=== PATIENT | female | born 1965 | race Caucasian/White ===

== ENCOUNTER 2020-03-19 11:51 | Outpatient (CLI) | payer MEDICAID, SELFPAY ==
--- NOTE | 2020-03-19 12:11 | XRR_ITS ---
PROCEDURE INFORMATION: Exam: XR Chest, 2 Views Exam date and time: 03/19/2020 12:36 PM Age: 55 years old Clinical indication: Condition or disease; Other: Carcinoma in situ of oral cavity TECHNIQUE: Imaging protocol: XR of the chest Views: 2 views. COMPARISON: No relevant prior studies available. FINDINGS: Lungs: Granuloma right mid lung field. This finding measures 8.7 mm No consolidation. Pleural space: Unremarkable. No pleural effusion. No pneumothorax. Heart/Mediastinum: Unremarkable. No cardiomegaly. Bones/joints: There is dorsal spine osteopenia seen. XR/XR chest 2V* [id number] IMPRESSION: 1. No acute findings. 2. Granuloma right lung
[2020-03-19 12:30] LABS: Basophils # 0.1 10^3/uL (0.0-0.1); Basophils % 1.2 %; Eosinophils # 0.1 10^3/uL (0.0-0.8); Eosinophils % 1.2 %; Hematocrit 39.8 % (37.0-47.0); Hemoglobin 12.8 g/dL (11.5-15.3); Lymphocytes # 1.3 10^3/uL (0.8-4.8); Lymphocytes % 21.2 %; Mean Corpuscular HGB Conc 32.2 g/dL (30.0-36.0); Mean Corpuscular Hemoglobin 30.8 pg (28.0-34.0); Mean Corpuscular Volume 95.7 fL (81-99); Monocytes # 0.4 10^3/uL (0.2-0.9); Monocytes % 6.9 %; Neutrophils # 4.09 10^3/uL (1.8-7.7); Neutrophils % 69.3 %; Nucleated Red Blood Cells % 0 %; Platelet Count 175 10^3/cmm (130-400); Red Blood Count 4.16 10^6/uL (4.1-5.3); Red Cell Distribution Width 13.4 % (12.1-15.1); White Blood Count 5.9 10^3/uL (4.0-10.0)
[2020-03-19 12:49] LABS: Alanine Aminotransferase 29 U/L (0-33); Albumin Level 4.2 g/dL (3.5-5.2); Alkaline Phosphatase 86 IU/L (35-105); Anion Gap 12.9 (5-19); Aspartate Amino Transferase 20 U/L (0-32); Blood Urea Nitrogen 9 mg/dL (6-20); Calcium 9.9 mg/dL (8.5-10.5); Carbon Dioxide 30 mmol/L (22-29); Chloride 100 mmol/L (98-107); Globulin 2.5 g/dL (1.3-4.6); Glomerular Filtration Rate 86.9 mL/min (90-130); Glucose 99 mg/dL (65-115); Osmolality Calculated 285 mOsm/kg (285-295); Potassium 4.9 mmol/L (3.5-5.1); Sodium 138 mmol/L (136-145); Total Bilirubin 0.2 mg/dL (0.15-1.2); Total Protein 6.7 g/dL (6.6-8.7)
== END 2020-03-19 11:52 | disposition home or self-care (01) ==
PROVIDERS: PCP Physician Assistant; Visit Provider Specialist
DX: D00.00 Carcinoma in situ of oral cavity, unspecified site (principal); J84.10 Pulmonary fibrosis, unspecified
CPT/HCPCS: 36415; 71046; 80053; 85025

== ENCOUNTER 2020-04-02 07:40 | Outpatient (CLI) | payer MEDICAID, SELFPAY ==
--- NOTE | 2020-04-02 08:03 | CT_ITS ---
WS: [id number] CT NECK TECHNIQUE: Contrast-enhanced CT of the neck with coronal and sagittal reformatted images. CLINICAL INFORMATION: CARCINOMA INSITU OF ORAL CAVITIY COMPARISON: None. DLP: 2322.[address] scans at [facility] use at least one of these dose optimization techniques: automat ed exposure control; mA and/or kV adjustment per patient size (includes targeted exams where dose is matched to clinical indication); or iterative reconstruction. FINDINGS: Parotid glands are normal. Normal submandibular glands. Normal tongue base. Normal posterior nasophar ynx. Normal parapharyngeal fat. No evidence of supraglottic or glottic mass. Subglottic airway is pat ent. Thyroid gland appears normal. Lung apices are well aerated. Partially visualized intracranial contents are normal. Paranasal sinuses and mastoid air cells well a erated. A few slightly prominent submental lymph nodes the largest measuring 6 mm not pathologically enlarged . Moderate spondylitic changes cervical spine. Disc osteophyte complex C6-7 with mild central canal s tenosis. CT/CT neck w con* [id number] IMPRESSION: 1. Salivary glands are normal in appearance. 2. No cervical lymphadenopathy. A few prominent submental lymph nodes but not pathologically enlarged. Largest measures 6 mm. 3. No evidence of supraglottic or glottic mass. 4. Posterior nasopharynx and tongue base appear unremarkable. 5. Paranasal sinuses and mastoid air cells are well aerated. 6. Moderate central canal stenosis due to disc osteophyte complex with central calcified protrusion and C6-C7.
[2020-04-02] MEDS: iohexol 300 mg/mL 100 mL Btl IV (08:31)
== END 2020-04-02 07:41 | disposition home or self-care (01) ==
LOC: RADWPI 07:44
PROVIDERS: PCP Physician Assistant; Visit Provider Specialist
DX: D00.00 Carcinoma in situ of oral cavity, unspecified site (principal); M48.02 Spinal stenosis, cervical region; M50.223 Other cervical disc displacement at C6-C7 level
CPT/HCPCS: 70491; Q9967

== ENCOUNTER 2020-04-07 08:55 | Outpatient (CLI) | payer MEDICAID, SELFPAY ==
--- NOTE | 2020-04-07 09:14 | MR_ITS ---
WS: [id number] MRI LEFT hip/pelvis. HISTORY: LEFT hip pain. History of fibromyalgia. No injury. Multiplanar, multisequence imaging is performed of the pelvis with attention to the LEFT hip. COMPARISON: LEFT hip radiograph 02/12/2020. No marrow edema or fracture. Mild narrowing of the hip joints bilaterally but slightly greater on the LEFT. There is slightly greater irregularity involving the cortical surface of the LEFT hip and loss of cartilage as compared to the RIGHT. Increased T2 signal over the greater trochanters bilaterally and mild increased signal in the gluteus medius tendon over the greater trochanter. These changes are bilateral greatest on the LEFT. No asymmetry of the muscles or soft tissues. No free fluid in the ab domen. Linear areas of increased T2 signal involving the superior labrum, noted bilaterally. MR/MR hip LT wo con* [id number] IMPRESSION: 1. Mild bilateral trochanteric bursitis, LEFT greater than RIGHT. 2. Mild bilateral hip joint narrowing, greatest on the LEFT with more prominent degenerative changes and change in the cortex of the LEFT hip as compared to t he RIGHT. No fracture. 3. Suspicious for bilateral labral tears.
== END 2020-04-07 08:56 | disposition home or self-care (01) ==
LOC: RADWPI 08:56
PROVIDERS: PCP Physician Assistant; Visit Provider Physician Assistant
DX: M70.62 Trochanteric bursitis, left hip (principal); M70.61 Trochanteric bursitis, right hip
CPT/HCPCS: 73721

== ENCOUNTER → 2020-04-08 09:26 | Outpatient (BNVA) | payer MEDICAID, SELFPAY | PROVIDERS: PCP Physician Assistant; Referring Provider Physician Assistant; Visit Provider Anesthesiology Pain Medicine | DX: M25.552 Pain in left hip (principal); M54.9 Dorsalgia, unspecified; M62.830 Muscle spasm of back; Z79.891 Long term (current) use of opiate analgesic | CPT/HCPCS: 99205 ==

== ENCOUNTER → 2020-04-15 13:55 | Outpatient (BNVA) | payer MEDICAID, SELFPAY | PROVIDERS: PCP Physician Assistant; Visit Provider Anesthesiology Pain Medicine | DX: G89.29 Other chronic pain (principal); M25.552 Pain in left hip; Z79.891 Long term (current) use of opiate analgesic | CPT/HCPCS: 20610; 77002; J1030; J3490 ==

== ENCOUNTER → 2020-04-16 08:37 | Outpatient (BNVA) | payer MEDICAID, SELFPAY | PROVIDERS: PCP Physician Assistant; Referring Provider Physician Assistant; Visit Provider Orthopaedic Surgery | DX: M25.552 Pain in left hip (principal); M51.36 Other intervertebral disc degeneration, lumbar region; M51.37 Other intervertebral disc degeneration, lumbosacral region | CPT/HCPCS: 72114; 73502 ==

== ENCOUNTER → 2020-05-01 08:49 | Outpatient (BNVA) | payer MEDICAID, SELFPAY | PROVIDERS: PCP Physician Assistant; Visit Provider Anesthesiology Pain Medicine | DX: M25.552 Pain in left hip (principal); M54.9 Dorsalgia, unspecified; M62.830 Muscle spasm of back; Z79.891 Long term (current) use of opiate analgesic | CPT/HCPCS: 99214 ==

== ENCOUNTER 2020-05-06 08:25 | Outpatient (CLI) | payer MEDICAID, SELFPAY ==
--- NOTE | 2020-05-06 08:45 | MR_ITS ---
WS: [id number] MRI LUMBAR SPINE NONCONTRAST TECHNIQUE: Sagittal T1, T2 and STIR imaging. Axial T1 and T2 imaging. CLINICAL INFORMATION: M54.5 - Low back pain COMPARISON: None. FINDINGS: Mild lumbar curve. No acute compression. No high-grade central canal stenosis. L1-L2: Normal. L2-L3: Mild annular bulging. Small right foraminal protrusion with mild right foraminal narrowing. Co ntact of the exiting right L2 nerve root. Mild facet arthropathy. L3-L4: Mild annular bulging. Narrowing of the left subarticular recess. Small left foraminal protrusi on with mild left foraminal narrowing. Mild facet arthropathy. L4-L5: Mild annular bulging. Tiny annular tear. Mild facet arthropathy. Spinal canal and foramen are patent. L5-S1: No significant disc bulging. Spinal canal foramen are patent. Mild facet arthropathy. Visualized pelvic bony structures: Normal. Paravertebral soft tissues: Normal. MR/MR lumbar spine wo con* [id number] IMPRESSION: 1. Mild lumbar curve. No acute compression. No high-grade central canal stenos is. 2. Small left foraminal protrusion L3-4 with contact of the exiting left L3 ne rve root. Recommend correlation for left L3 nerve root symptoms. 3. Small right foraminal protrusion L2-3 slightly impinges the exiting right L 2 nerve root with mild right foraminal narrowing. 4. Tiny annular fissure L4-5. 5. Mild facet arthropathy worse L5-S1.
== END 2020-05-06 08:26 | disposition home or self-care (01) ==
LOC: RADSHAW 08:25
PROVIDERS: PCP Physician Assistant; Visit Provider Orthopaedic Surgery
DX: M47.817 Spondylosis without myelopathy or radiculopathy, lumbosacral region (principal); M51.26 Other intervertebral disc displacement, lumbar region
CPT/HCPCS: 72148

== ENCOUNTER → 2020-05-20 08:54 | Outpatient (BNVA) | payer MEDICAID, SELFPAY | PROVIDERS: PCP Physician Assistant; Visit Provider Anesthesiology Pain Medicine | DX: M54.9 Dorsalgia, unspecified (principal); M62.830 Muscle spasm of back; M51.36 Other intervertebral disc degeneration, lumbar region; M47.816 Spondylosis without myelopathy or radiculopathy, lumbar region; M54.16 Radiculopathy, lumbar region; M25.552 Pain in left hip; Z79.891 Long term (current) use of opiate analgesic | CPT/HCPCS: 99214 ==

== ENCOUNTER → 2020-06-24 10:53 | Outpatient (BNVA) | payer MEDICAID, SELFPAY | PROVIDERS: PCP Physician Assistant; Referring Provider Orthopaedic Surgery; Visit Provider Orthopaedic Surgery | DX: M54.16 Radiculopathy, lumbar region (principal); M51.36 Other intervertebral disc degeneration, lumbar region | CPT/HCPCS: 72110 ==

== ENCOUNTER → 2020-06-26 10:04 | Outpatient (BNVA) | payer MEDICAID, SELFPAY | PROVIDERS: PCP Physician Assistant; Visit Provider Anesthesiology Pain Medicine | DX: M54.9 Dorsalgia, unspecified (principal); M25.552 Pain in left hip; M51.36 Other intervertebral disc degeneration, lumbar region; M47.816 Spondylosis without myelopathy or radiculopathy, lumbar region; M54.16 Radiculopathy, lumbar region; M62.830 Muscle spasm of back | CPT/HCPCS: 99214 ==

== ENCOUNTER → 2020-07-01 14:20 | Outpatient (BNVA) | payer MEDICAID, SELFPAY | PROVIDERS: PCP Physician Assistant; Visit Provider Anesthesiology Pain Medicine | DX: M54.16 Radiculopathy, lumbar region (principal); M54.9 Dorsalgia, unspecified | CPT/HCPCS: 64483; 64484; J1100; J3490 ==

== ENCOUNTER → 2020-07-17 09:17 | Outpatient (BNVA) | payer MEDICAID, SELFPAY | PROVIDERS: PCP Physician Assistant; Visit Provider Anesthesiology Pain Medicine | DX: M54.9 Dorsalgia, unspecified (principal); M25.552 Pain in left hip; M62.830 Muscle spasm of back; M51.36 Other intervertebral disc degeneration, lumbar region; M47.816 Spondylosis without myelopathy or radiculopathy, lumbar region; M54.16 Radiculopathy, lumbar region | CPT/HCPCS: 99214 ==

== ENCOUNTER → 2020-08-28 09:07 | Outpatient (BNVA) | payer MEDICAID, SELFPAY | PROVIDERS: PCP Physician Assistant; Visit Provider Anesthesiology Pain Medicine | DX: M51.17 Intervertebral disc disorders with radiculopathy, lumbosacral region (principal); M51.36 Other intervertebral disc degeneration, lumbar region; M47.816 Spondylosis without myelopathy or radiculopathy, lumbar region; M54.9 Dorsalgia, unspecified; M25.552 Pain in left hip; M62.830 Muscle spasm of back | CPT/HCPCS: 99214 ==

== ENCOUNTER → 2020-09-03 14:09 | Outpatient (BNVA) | payer MEDICAID, SELFPAY | PROVIDERS: PCP Physician Assistant; Visit Provider Anesthesiology Pain Medicine | DX: M54.16 Radiculopathy, lumbar region (principal); M54.9 Dorsalgia, unspecified | CPT/HCPCS: 64483; 64484; J1100; J3490 ==

== ENCOUNTER → 2020-10-09 09:39 | Outpatient (BNVA) | payer MEDICAID, SELFPAY | PROVIDERS: PCP Physician Assistant; Visit Provider Anesthesiology Pain Medicine | DX: G89.29 Other chronic pain (principal); M79.18 Myalgia, other site; M54.16 Radiculopathy, lumbar region; M51.36 Other intervertebral disc degeneration, lumbar region; M47.816 Spondylosis without myelopathy or radiculopathy, lumbar region; M54.9 Dorsalgia, unspecified; M25.552 Pain in left hip; M79.605 Pain in left leg | CPT/HCPCS: 20553; 99214; J1030; J3490 ==

== ENCOUNTER 2020-10-24 06:48 | Outpatient (CLI) | payer MEDICAID, SELFPAY ==
--- NOTE | 2020-10-24 07:15 | MR_ITS ---
WS: [id number] MRI LUMBAR SPINE NONCONTRAST TECHNIQUE: Sagittal T1, T2 and STIR imaging. Axial T1 and T2 imaging. CLINICAL INFORMATION: M54.16 - Radiculopathy, lumbar region COMPARISON: None. FINDINGS: Mild lumbar curve. No acute compression. No high-grade central canal stenosis. L1-L2: Normal. L2-L3: Mild annular bulging with slight effacement of the ventral thecal sac. Tiny right foraminal pr otrusion with a small annular fissure and mild right foraminal narrowing. Contact of the exiting righ t L2 nerve root. L3-L4: Mild annular bulging. Slight effacement of ventral thecal sac. Tiny bilateral foraminal protru sions left greater than right contacts the exiting L3 nerve roots. Mild foraminal narrowing. Mild fac et arthropathy. L4-L5: Mild annular bulging with a shallow right pericentral protrusion. Impingement traversing right L5 nerve root in the subarticular recess. Mild right L4-5 foraminal narrowing. Left foramen is paten t. Mild/moderate facet arthropathy. L5-S1: No significant disc bulging. Spinal canal and foramen are patent. Mild facet arthropathy. Visualized pelvic bony structures: Normal. Paravertebral soft tissues: Normal. MR/MR lumbar spine wo con* [id number] IMPRESSION: 1. Mild lumbar curve. No acute compression. No high-grade central canal stenos is. 2. Shallow right pericentral protrusion L4-5 impinges the traversing right L5 nerve root in the subarticular recess. This is progressed since May 06 21. Correlation for right L5 nerve root symptoms. Mild right L4-5 foraminal naomi rowing. 3. MRI is otherwise unchanged from May 06, 2020 4. Right foraminal protrusion L2-3 with a small annular tear impinges the exit ing right L2 nerve root. Recommend correlation right L2 nerve root symptoms. 5. Tiny bilateral foraminal protrusions L3-4 slightly contacts the exiting lef t greater than right L3 nerve roots with a small left annular fissure.
== END 2020-10-24 06:49 | disposition home or self-care (01) ==
LOC: RADSHAW 06:51
PROVIDERS: PCP Physician Assistant; Visit Provider Anesthesiology Pain Medicine
DX: M54.16 Radiculopathy, lumbar region (principal); M51.26 Other intervertebral disc displacement, lumbar region
CPT/HCPCS: 72148

== ENCOUNTER 2020-10-27 14:54 | Outpatient (CLI) | payer MEDICAID, SELFPAY ==
--- NOTE | 2020-10-27 15:02 | CT_ITS ---
WS: [id number] CT scan of the neck without IV contrast. Additional two-dimensional coronal and sagittal reconstructi on was performed. 10/27/2020 Clinical Data: ACUTE NECK PAIN Comparison: CT neck, 04/02/2020. DLP: 1103.[address] scans at [facility] use at least one of these dose optimization techniques: automat ed exposure control; mA and/or kV adjustment per patient size (includes targeted exams where dose is matched to clinical indication); or iterative reconstruction. Findings: No lymphadenopathy is noted. The salivary glands are unremarkable. There is no prevertebral soft tiss ue swelling. The larynx is symmetric. The floor of the mouth and parapharyngeal spaces are normal. T he oral cavity is unremarkable. The tongue base is normal. The hypopharynx is unremarkable. The cervical spine shows minimal osteoarthritic change from C4 through C7. The lung apices show no ab normalities. The skull base shows no erosions. The paranasal sinuses and intraorbital contents are no nremarkable. CT/CT neck con [id number] Impression: Negative CT scan of the neck.
--- NOTE | 2020-10-27 15:02 | CT_ITS ---
WS: [id number] CT scan of the head, 10/27/2020 Clinical Data: TEMPORAL HEADACHE Comparison: None. DLP: 925.[address] scans at [facility] use at least one of these dose optimization techniques: automat ed exposure control; mA and/or kV adjustment per patient size (includes targeted exams where dose is matched to clinical indication); or iterative reconstruction. Findings: The ventricular system is normal without shift. No recent infarct or hemorrhage is seen. There are no abnormal intracerebral masses. The cerebellum and brainstem are not remarkable. Bony windows of the skull and skull base show no fractures or erosions. The mastoid air cells, risk intern al auditory canals, sella turcica, intraorbital contents, and paranasal sinuses are unremarkable. CT/CT head wo con* [id number] Impression: Negative CT scan of the head
== END 2020-10-27 14:55 | disposition home or self-care (01) ==
PROVIDERS: PCP Physician Assistant; Visit Provider Family Medicine
DX: R51.9 Headache, unspecified (principal); M54.2 Cervicalgia
CPT/HCPCS: 70450; 70490

== ENCOUNTER 2020-11-10 08:43 | Outpatient (CLI) | payer MEDICAID, SELFPAY ==
--- NOTE | 2020-11-10 08:56 | MR_ITS ---
WS: [id number] MRI HEAD WITH CONTRAST WITH ATTENTION TO THE INTERNAL AUDITORY CANALS TECHNIQUE: Sagittal T1, T2 axial, T2 axial flair, axial susceptibility weighted imaging, axial diffus ion weighted images, and coronal T2 images were obtained. Pre and post T1 axial and post T1 coronal i mages. ADC and FSPGR images. Post gadolinium images with attention to the internal auditory canals. A xial fiesta imaging. CLINICAL INFORMATION: CHRONIC SEROUS OTITIS MEDIA, RIGHT EAR COMPARISON: CT October 27, 2020 FINDINGS: No evidence of restricted diffusion to suggest acute ischemia. Ventricular system and basal cisterns are patent. No suspicious intracranial signal abnormalities. Normal nguyen-white differentiation. Opaci fication right mastoid air cells. Right middle ear is well aerated. No hemosiderin on the susceptibly weighted images. Proximal 7th and 8th cranial nerves appear normal. Normal trigeminal nerve root ent ry zones. No evidence of enhancing IAC or CP angle mass. Normal optic chiasm and pituitary infundibulum. Normal cavernous sinuses and Meckel's cave. No abnorm al intracranial enhancement. Normal dural venous sinuses. Incidental venous angioma right frontal lob e. MR/MR iac's wo/w con* [id number] IMPRESSION: 1. No evidence of restricted diffusion to suggest acute ischemia. 2. No suspicious intracranial signal abnormalities. 3. Opacification of the right mastoid air cells. Right middle ear appears well aerated. No evidence of enhancing IAC or CP angle mass. 4. Normal trigeminal nerve root entry zones. 5. Left mastoid air cells are well aerated. 6. Incidental venous angioma right frontal lobe.
[2020-11-10] MEDS: gadobenate dimeglumine 20 mL vial IV (09:42)
== END 2020-11-10 08:44 | disposition home or self-care (01) ==
PROVIDERS: PCP Physician Assistant; Visit Provider Specialist
DX: H65.21 Chronic serous otitis media, right ear (principal); M54.2 Cervicalgia; Q28.3 Other malformations of cerebral vessels
CPT/HCPCS: 70553; A9577

== ENCOUNTER → 2020-11-18 08:16 | Outpatient (BNVA) | payer MEDICAID, SELFPAY | PROVIDERS: PCP Physician Assistant; Visit Provider Anesthesiology Pain Medicine | DX: M51.17 Intervertebral disc disorders with radiculopathy, lumbosacral region (principal); M51.36 Other intervertebral disc degeneration, lumbar region; M47.816 Spondylosis without myelopathy or radiculopathy, lumbar region; M54.2 Cervicalgia; M25.552 Pain in left hip; M79.605 Pain in left leg; M62.830 Muscle spasm of back; Z87.19 Personal history of other diseases of the digestive system; Z98.890 Other specified postprocedural states | CPT/HCPCS: 99215 ==

== ENCOUNTER → 2020-11-25 14:03 | Outpatient (BNVA) | payer MEDICAID, SELFPAY | PROVIDERS: PCP Physician Assistant; Visit Provider Anesthesiology Pain Medicine | DX: M54.16 Radiculopathy, lumbar region (principal) | CPT/HCPCS: 64483; 64484; J1100; J3490 ==

== ENCOUNTER 2020-12-15 13:26 | Emergency (ER) | payer MEDICAID, SELFPAY ==
[2020-12-15 13:33] VITALS: BP 121/79; PULSE 92; RESP 18; TEMP 37; O2SAT 99; BMI 27.4
--- NOTE | 2020-12-15 13:33 | XRR_ITS ---
PROCEDURE INFORMATION: Exam: XR Chest Exam date and time: 12/15/2020 1:33 PM Age: 55 years old Clinical indication: Other: Dizziness; Patient HX: This patient is a 55-year-old female brought in by EMS for dizzy and near syncope episode. ; Additional info: Cough TECHNIQUE: Imaging protocol: XR of the chest. Views: 1 view. COMPARISON: CR XR chest 2V* [id number] 03/19/2020 12:34 PM FINDINGS: Lungs: No consolidation. Benign calcified right upper lobe granuloma. Pleural spaces: Unremarkable. No pleural effusion. No pneumothorax. Heart/Mediastinum: Unremarkable. No cardiomegaly. Bones/joints: No acute findings. XR/XR chest 1V portable [id number] IMPRESSION: No acute findings.
--- NOTE | 2020-12-15 13:34 | W.ED.GENADLT ---
HPI - General Adult General: Chief complaint: Back Pain/Injury Stated complaint: LEG PAIN, NUMB, BACK PAIN, NEAR SYNCOPE Time Seen by Provider: 12/15/20 13:30 History of Present Illness: HPI narrative: This patient is a 55-year-old female brought in by EMS for dizzy and near syncope episode. Patient has chronic back pain and neuropathy to the lower extremities and is required to take gabapentin that she has been on for some time. Patient states though she is out of her chronic primary medications due to the loss of her Medicaid. Patient states that she was walking from the one room to another and got lightheaded and if her friend had not caught her she probably would have passed out but the patient did not have any syncopal episodes. Patient's complaints neuropathy pain and low back pain is chronic and has had this for some time. Patient is alert and oriented x3. Will do medical evaluation treat as needed Onset (ago): hour(s) Associated symptoms: Deny chest pain, dyspnea, headache(s), nausea, rash, palpitations or vomiting Review of Systems General: Reports: 10 or more systems reviewed and unremarkable except in HPI and below Const: Denies: fever(s), chills, body aches or fatigue Eyes: Denies: change in vision or blurry vision ENMT: Denies: throat pain, hoarseness or mouth pain Card: Denies: chest pain, palpitations, irregular heart rhythm, edema, swelling of feet/ankles or lightheadedness Resp: Denies: dyspnea, productive cough, non-productive cough, wheezing or pain on inspiration GI: Denies: abdominal pain, nausea or vomiting : Denies: flank pain, difficulty voiding, dysuria, urinary frequency, urinary urgency or urinary hesitancy Musc: Reports: back pain; Denies: neck pain, extremity pain, extremity swelling, joint pain, joint swelling, joint redness, joint warmth or limited range of motion Skin/Breast: Denies: rash, pruritus, erythema or skin tenderness Neuro: Reports: dizziness; Denies: headache(s), numbness in extremities or weakness in extremities Psych: Denies: anxiety or depression PFS ED PFSH: Medical History Fibromyalgia Family History Mother Cancer cervial COPD (chronic obstructive pulmonary disease) Father COPD (chronic obstructive pulmonary disease) Hypertension Diabetes Brother Diabetes one brother is insulin dependent and another brother that is not insulin dependent Sister Factor 5 Leiden mutation, heterozygous Sister Diabetes Non insulin dependent Social History Smoking and tobacco status: former smoker Second hand smoke exposure: Yes Alcohol intake: former History of recent travel: No Physical Exam Const: COMMON NORMALS: no acute distress, average body habitus, patient oriented x3, no limitations, healthy appearing, alert and well nourished HENMT: COMMON NORMALS: normocephalic, atraumatic, hearing grossly normal bilaterally, external ears normal, EAC's normal, TM's normal bilaterally, Normal external nose present, Normal nasal mucous membranes and turbinates present, moist oral mucous membranes, oropharynx normal, dentition normal and gingiva normal HEAD & SCALP: normocephalic and atraumatic NOSE: Normal external nose present and Normal nasal mucous membranes and turbinates present EXTERNAL EAR: Yes external ears normal EXTERNAL AUDITORY CANAL: EAC's normal TYMPANIC MEMBRANE: TM's normal bilaterally Neck/C-Spine: COMMON NORMALS: full ROM, no lymphadenopathy, supple, no meningeal signs, no JVD, Thyroid normal and No carotid bruits THYROID: Thyroid normal Chest: COMMONS NORMALS: normal inspection of the chest, normal palpation of entire chest wall, normal inspection of the breasts and normal palpation of the breasts Breast/axilla inspection: Yes normal inspection of the breasts BREAST/AXILLA PALPATION: Yes normal palpation of the breasts Resp: COMMON NORMALS: normal respiratory effort, No retractions, No use of accessory muscles, clear to auscultation bilaterally and percussion normal AUSCULTATION: clear to auscultation bilaterally PERCUSSION: percussion normal Cardio: COMMON NORMALS: no JVD, regular rate, regular rhythm, S1 normal heart sound present, S2 normal heart sound present, No gallops present (Cardio), No clicks present (Cardio), No murmurs present (Cardio), No rub (Cardio) and Peripheral pulses 2+ throughout RATE: regular rate RHYTHM: regular rhythm HEART SOUNDS: S1 normal heart sound present and S2 normal heart sound present PERIPHERAL PULSES: Peripheral pulses 2+ throughout GI: COMMON NORMALS: Normal to inspection, nondistended, normoactive bowel sounds present, Soft to palpation, non-tender, No hepatosplenomegaly present, no masses and no bruits PALPATION: Yes Soft to palpation and Yes No hepatosplenomegaly present Back/Pelvis: COMMON NORMALS: thoracic and lumbar spine normal to inspection, no thoracic nor lumbar tenderness, thoraco-lumbar ROM normal and straight leg raise negative bilaterally Extremity: COMMON NORMALS: normal to inspection, full ROM, capillary refill normal, no joint enlargement, no clubbing, cyanosis or edema, no calf tenderness and no pedal edema Neuro: COMMON NORMALS: patient oriented x3 SENSORIUM/ORIENTATION: Yes alert MENINGEAL SIGNS: Yes no meningeal signs Course Reevaluation(s): Reevaluation #1: Negative evaluation in the emergency department for any acute findings. Patient will be discharged home. Patient will receive refills on her gabapentin. Patient is to follow-up with primary care physician in 2 to 3 days as needed. Time: 15:56 Vital Signs: Vital signs: Vital Signs Temperature 98.6 F 12/15/20 13:33 Pulse Rate 95 12/15/20 15:25 Respiratory Rate 18 12/15/20 13:33 Blood Pressure 104/72 12/15/20 15:25 Pulse Oximetry 99 12/15/20 15:25 MDM - General Adult MDM Narrative: Medical decision making narrative: Negative evaluation in the emergency department for any acute findings. Patient will be discharged home. Patient will receive refills on her gabapentin. Patient is to follow-up with primary care physician in 2 to 3 days as needed. Lab Data: Labs: Lab Results 12/15/20 12/15/20 12/15/20 13:45 13:45 13:45 WBC 9.3 10^3/uL 10^3/ uL (4.0-10.0) RBC 4.21 10^6/uL 10^6 /uL (4.1-5.3) Hgb 13.4 g/dL g/dL (11.5-15.3) Hct 39.2 % % (37.0-47.0) MCV 93.1 fl fl (81-99) MCH 31.8 pg pg (28.0-34.0) MCHC 34.2 g/dL g/dL (30.0-36.0) RDW 13.5 % % (12.1-15.1) Plt Count 198 10^3/cmm 10^3 /cmm (130-400) MPV 10.2 fL fL (7.4-10.4) Neut % (Auto) 76.7 % % Lymph % (Auto) 12.3 % % Mellette % (Auto) 9.5 % % Eos % (Auto) 0.6 % % Baso % (Auto) 0.6 % % Neut # (Auto) 7.15 10^3/uL 10^3 /uL (1.8-7.7) Lymph # (Auto) 1.2 10^3/uL 10^3/ uL (0.8-4.8) Mellette # (Auto) 0.9 10^3/uL 10^3/ uL (0.2-0.9) Eos # (Auto) 0.1 10^3/uL 10^3/ uL (0.0-0.8) Baso # (Auto) 0.1 10^3/uL 10^3/ uL (0.0-0.1) Nucleated RBC % (a uto) 0 % % Nucleated RBCs # 0.0 /100WBC /100W BC Sodium 139 mmol/L mmol/L (136-145) Potassium 3.3 mmol/L L mmol /L (3.5-5.1) Chloride 104 mmol/L mmol/L (98-107) Carbon Dioxide 26 mmol/L mmol/L (22-29) Anion Gap 12.3 (5-19) BUN 6 mg/dL mg/dL (6-20) Creatinine 0.5 mg/dL mg/dL (0.5-0.9) GFR Calculation 128.1 mL/min mL/m in (90-130) Glucose 83 mg/dL mg/dL (65-115) Calculated Osmolal ity 285 mOsm/kg mOsm/ kg (285-295) Calcium 9.2 mg/dL mg/dL (8.5-10.5) Total Bilirubin 0.2 mg/dL mg/dL (0.15-1.2) AST 16 U/L U/L (0-32) ALT 22 U/L U/L (0-33) Alkaline Phosphata se 118 IU/L H IU/L (35-105) Troponin T Gen 5 n g/L 37 ng/L H ng/L (0-10) Total Protein 6.0 g/dL L g/dL (6.6-8.7) Albumin 3.9 g/dL g/dL (3.5-5.2) Globulin 2.1 g/dL g/dL (1.3-4.6) Urine Color Urine Appearance Urine pH Ur Specific Gravit y Urine Protein Urine Glucose (UA) Urine Ketones Urine Blood Urine Nitrate Urine Bilirubin Urine Urobilinogen Ur Leukocyte Dottie ase 12/15/20 15:27 WBC RBC Hgb Hct MCV MCH MCHC RDW Plt Count MPV Neut % (Auto) Lymph % (Auto) Mellette % (Auto) Eos % (Auto) Baso % (Auto) Neut # (Auto) Lymph # (Auto) Mellette # (Auto) Eos # (Auto) Baso # (Auto) Nucleated RBC % (a uto) Nucleated RBCs # Sodium Potassium Chloride Carbon Dioxide Anion Gap BUN Creatinine GFR Calculation Glucose Calculated Osmolal ity Calcium Total Bilirubin AST ALT Alkaline Phosphata se Troponin T Gen 5 n g/L Total Protein Albumin Globulin Urine Color Straw (Yellow) Urine Appearance Clear (CLEAR) Urine pH 7 (5-7) Ur Specific Gravit y 1.000 L (1.005-1.030) Urine Protein Neg (Negative) Urine Glucose (UA) Norm (Normal) Urine Ketones Negative (Negative) Urine Blood Neg (Negative) Urine Nitrate Negative (Negative) Urine Bilirubin Neg (Negative) Urine Urobilinogen Norm mg/dL mg/dL (Negative) Ur Leukocyte Dottie ase Negative (Negative) EKG Data^: EKG 1: Attestation: I personally reviewed and interpreted this EKG as follows: EKG interpretation date: 12/15/20 EKG interpretation time: 14:03 Prior EKG tracings: not available for review Interpretation: Sinus rhythm with a heart rate of 79 nonspecific EKG changes. Computer generated interpretation: Chest X-Ray 12/15/20 13:33 IMPRESSION: No acute findings. Discharge Plan Discharge Patient Disposition: Home Clinical Impression: Dizziness, Lumbar radiculopathy Condition: Stable Prescriptions: New diclofenac sodium 75 mg tablet,delayed release (DR/EC) 75 mg PO BID PRN (Reason: pain) Qty: 20 RF: 0 No Action atorvastatin [Lipitor] 40 mg tablet 40 mg PO DAILY RF: 0 hydrochlorothiazide 12.5 mg tablet 12.5 mg PO QAM RF: 0 pantoprazole 40 mg tablet,delayed release (DR/EC) 40 mg PO QAM RF: 0 bupropion HCl [Wellbutrin SR] 150 mg tablet sustained-release 12 hr 150 mg PO BID RF: 0 gabapentin 600 mg tablet 600 mg PO TID Qty: 90 RF: 0 tizanidine 4 mg tablet 4 mg PO BID PRN (Reason: muscle spasticity) Qty: 60 RF: 0 pilocarpine HCl 5 mg Tablet 5 mg PO TID RF: 0 Tylenol Extra Strength 500 mg Tablet 1,000 mg PO Q4H PRN (Reason: Pain) RF: 0 ropinirole 2 mg Tablet 2 mg PO BEDTIME RF: 0 trazodone 150 mg Tablet 150 mg PO BEDTIME RF: 0 ProAir HFA 90 mcg/actuation Hfa Aerosol Inhaler 2 puff INHALATION Q4H PRN (Reason: Shortness Of Breath) RF: 0 Flonase 50 mcg/actuation [place],Suspension 2 spray INTRANASAL DAILY RF: 0 Cymbalta 60 mg Capsule,Delayed Release(Dr/Ec) 60 mg PO DAILY RF: 0 Discharge Orders: Discharge ED (Routine); Ordered 12/15/20 Ordered By: Godwin Morales Referrals: Deloris Davey PA [Primary Care Provider] - Discharge Diet: Advance as tolerated Discharge Activity: Resume usual activity Patient Instructions: Opioid Safety Activity Restrictions/Additional Instructions: Encourage p.o. fluids. Continue all home medications. Follow-up with primary care physician for any refills of her chronic medications. You have been given a prescription for diclofenac for pain. Follow-up with your primary care physician in 2 to 3 days. Coding Level of Care Code ED Commissioner Conservation Of Resources for Wilbert Fwd Exam Comprehensive
[2020-12-15] MEDS: sodium chloride 0.9% 1,000 ML 999 ML IV (13:49)
[2020-12-15 13:54] LABS: Basophils # 0.1 10^3/uL (0.0-0.1); Basophils % 0.6 %; Eosinophils # 0.1 10^3/uL (0.0-0.8); Eosinophils % 0.6 %; Hematocrit 39.2 % (37.0-47.0); Hemoglobin 13.4 g/dL (11.5-15.3); Lymphocytes # 1.2 10^3/uL (0.8-4.8); Lymphocytes % 12.3 %; Mean Corpuscular HGB Conc 34.2 g/dL (30.0-36.0); Mean Corpuscular Hemoglobin 31.8 pg (28.0-34.0); Mean Corpuscular Volume 93.1 fl (81-99); Mean Platelet Volume 10.2 fL (7.4-10.4); Monocytes # 0.9 10^3/uL (0.2-0.9); Monocytes % 9.5 %; Neutrophils # 7.15 10^3/uL (1.8-7.7); Neutrophils % 76.7 %; Nucleated Red Blood Cells % 0 %; Platelet Count 198 10^3/cmm (130-400); Red Blood Count 4.21 10^6/uL (4.1-5.3); Red Cell Distribution Width 13.5 % (12.1-15.1); White Blood Count 9.3 10^3/uL (4.0-10.0)
[2020-12-15 14:17] LABS: Alanine Aminotransferase 22 U/L (0-33); Albumin Level 3.9 g/dL (3.5-5.2); Alkaline Phosphatase 118 IU/L (35-105); Anion Gap 12.3 (5-19); Aspartate Amino Transferase 16 U/L (0-32); Blood Urea Nitrogen 6 mg/dL (6-20); Calcium 9.2 mg/dL (8.5-10.5); Carbon Dioxide 26 mmol/L (22-29); Chloride 104 mmol/L (98-107); Creatinine Clr Calc Pharmacy 114.9489; Globulin 2.1 g/dL (1.3-4.6); Glomerular Filtration Rate 128.1 mL/min (90-130); Glucose 83 mg/dL (65-115); Osmolality Calculated 285 mOsm/kg (285-295); Potassium 3.3 mmol/L (3.5-5.1); Sodium 139 mmol/L (136-145); Total Bilirubin 0.2 mg/dL (0.15-1.2)
[2020-12-15 14:20] LABS: Troponin T (5th) Once 37 ng/L (0-10)
--- NOTE | 2020-12-15 14:54 | PC.PHAR ---
PT STATES SHE TAKES CARE OF HER OWN MEDICATIONS-PT BROUGHT IN MEDICATION BOTTLES-PT STATES SHE HAS BEEN OUT OF HER WELLBUTRIN SR 150MG,LIPITOR 40MG,CYMBALTA 60MG,TRAZODONE 150MG SINCE 12/07/20-NOTES ARE MADE IN THE PHARMACY COMMENTS
[2020-12-15 15:21] VITALS: BP 104/72; BP 107/70; BP 115/71; PULSE 81; PULSE 91; PULSE 98
[2020-12-15 15:25] VITALS: BP 104/72; PULSE 95; O2SAT 99
[2020-12-15 15:37] LABS: Add Urine Microscopic? NO; Charge for UA Resulting for Rev
[2020-12-15 15:51] LABS: Bilirubin Urine Neg (Negative); Blood Urine Neg (Negative); Glucose Urine UA Norm (Normal); Ketones Urine Negative (Negative); Leukocyte Esterase Urine Negative (Negative); Nitrate Urine Negative (Negative); Protein Urine Neg (Negative); Urine Appearance Clear (CLEAR); Urine Color Straw (Yellow); Urobilinogen Urine Norm (Negative); pH Urine 7 (5-7)
[2020-12-15 16:00] LABS: Amphetamines Screen Urine Negative (Negative); Barbiturates Screen Urine Negative (Negative); Benzodiazepines Screen Urine Negative (Negative); Cocaine Screen Urine Negative (Negative); Opiate Screen Urine Negative (Negative); PCP Screen Urine Negative (Negative); THC Screen Urine Negative (Negative)
[2020-12-15 16:25] VITALS: BP 120/66; PULSE 79; O2SAT 97
== END 2020-12-15 16:26 | disposition home or self-care (01) ==
PROVIDERS: Emergency Provider Emergency Medicine; PCP Physician Assistant
DX: R42 Dizziness and giddiness (principal); M54.16 Radiculopathy, lumbar region; Z87.891 Personal history of nicotine dependence
CPT/HCPCS: 71045; 80053; 80306; 81003; 84484; 85025; 96360; 99283; J7030

== ENCOUNTER → 2021-01-12 09:35 | Outpatient (BNVA) | payer MEDICAID, SELFPAY | PROVIDERS: PCP Physician Assistant; Visit Provider Anesthesiology Pain Medicine | DX: M51.17 Intervertebral disc disorders with radiculopathy, lumbosacral region (principal); M48.062 Spinal stenosis, lumbar region with neurogenic claudication; M51.36 Other intervertebral disc degeneration, lumbar region; M47.816 Spondylosis without myelopathy or radiculopathy, lumbar region; M25.552 Pain in left hip; M79.605 Pain in left leg; M62.830 Muscle spasm of back; Z87.19 Personal history of other diseases of the digestive system; Z98.890 Other specified postprocedural states | CPT/HCPCS: 99214 ==

== ENCOUNTER → 2021-01-27 14:33 | Outpatient (BNVA) | payer MEDICAID, SELFPAY | PROVIDERS: PCP Physician Assistant; Visit Provider Anesthesiology Pain Medicine | DX: M47.816 Spondylosis without myelopathy or radiculopathy, lumbar region (principal); M54.16 Radiculopathy, lumbar region | CPT/HCPCS: 64493; 64494; 64495; J3490 ==

== ENCOUNTER → 2021-02-10 08:59 | Outpatient (BNVA) | payer MEDICAID, SELFPAY | PROVIDERS: PCP Physician Assistant; Visit Provider Anesthesiology Pain Medicine | DX: M25.551 Pain in right hip (principal); M51.36 Other intervertebral disc degeneration, lumbar region; M47.816 Spondylosis without myelopathy or radiculopathy, lumbar region; M54.16 Radiculopathy, lumbar region; M79.605 Pain in left leg; M62.830 Muscle spasm of back; Z98.890 Other specified postprocedural states; Z87.19 Personal history of other diseases of the digestive system | CPT/HCPCS: 99214 ==

== ENCOUNTER → 2021-02-26 11:13 | Outpatient (BNVA) | payer MEDICAID, SELFPAY | PROVIDERS: PCP Physician Assistant; Visit Provider Orthopaedic Surgery | DX: M54.16 Radiculopathy, lumbar region (principal); M47.816 Spondylosis without myelopathy or radiculopathy, lumbar region; M54.2 Cervicalgia | CPT/HCPCS: 72050; 72110 ==

== ENCOUNTER → 2021-03-02 12:35 | Outpatient (BNVA) | payer MEDICAID, SELFPAY | PROVIDERS: PCP Physician Assistant; Visit Provider Anesthesiology Pain Medicine | DX: M47.816 Spondylosis without myelopathy or radiculopathy, lumbar region (principal) | CPT/HCPCS: 64635; 64636; J1030 ==

== ENCOUNTER → 2021-03-16 09:11 | Outpatient (BNVA) | payer MEDICAID, SELFPAY | PROVIDERS: PCP Physician Assistant; Visit Provider Anesthesiology Pain Medicine | DX: Z98.890 Other specified postprocedural states (principal); Z87.19 Personal history of other diseases of the digestive system; M51.36 Other intervertebral disc degeneration, lumbar region; M47.816 Spondylosis without myelopathy or radiculopathy, lumbar region; M54.16 Radiculopathy, lumbar region; M25.552 Pain in left hip; M79.605 Pain in left leg; M62.830 Muscle spasm of back; Z87.891 Personal history of nicotine dependence | CPT/HCPCS: 99214 ==

== ENCOUNTER 2021-03-18 08:35 | Outpatient (CLI) | payer MEDICAID, SELFPAY ==
--- NOTE | 2021-03-18 08:41 | MM_ITS ---
WS: [id number] BILATERAL DIGITAL SCREENING MAMMOGRAPHY WITH CAD CLINICAL INFORMATION: SCREENING HISTORY: Screening mammogram. No current complaints. COMPARISON: and TECHNIQUE: Bilateral CC and MLO views. FINDINGS: Scattered fibroglandular densities bilaterally. No suspicious focal mass, asymmetry, calcifications, or architectural distortion. No evidence of malignancy. Punctate and lucent centered calcifications. MM/[place] [id number] IMPRESSION: BI-RADS: 2-Benign FOLLOW UP: 1 Year Follow-up Recommend return to annual screening mammography.
== END 2021-03-18 08:36 | disposition home or self-care (01) ==
LOC: RADSHAW 08:39
PROVIDERS: PCP Physician Assistant; Visit Provider Physician Assistant
DX: Z12.31 Encounter for screening mammogram for malignant neoplasm of breast (principal)
CPT/HCPCS: 77067

== ENCOUNTER → 2021-03-23 10:55 | Outpatient (BNVA) | payer MEDICAID, SELFPAY | PROVIDERS: PCP Physician Assistant; Visit Provider Orthopaedic Surgery | DX: M48.062 Spinal stenosis, lumbar region with neurogenic claudication (principal); M54.16 Radiculopathy, lumbar region | CPT/HCPCS: 87635 ==

== ENCOUNTER → 2021-03-24 00:01 | Outpatient (BNVA) | payer MEDICAID, SELFPAY | PROVIDERS: PCP Physician Assistant; Visit Provider Orthopaedic Surgery | DX: Z20.822 Contact with and (suspected) exposure to COVID-19 (principal); M54.16 Radiculopathy, lumbar region; M48.062 Spinal stenosis, lumbar region with neurogenic claudication | CPT/HCPCS: 87635 ==

== ENCOUNTER 2021-03-30 05:44 | Day surgery (SDC) | payer MEDICAID, SELFPAY ==
[2021-03-25 09:14] VITALS: BMI 29.2
--- NOTE | 2021-03-25 11:16 | ANES.PREANE2 ---
Pre-Anesthetic Assessment Pre-Anesthetic Assessment: Height/Weight: Height 1.57 m Weight 72.575 kg Preop Diagnosis: Lumbar stenosis L4-5 Proposed Procedure: Operation Date: 03/30/21 07:00 Proposed Procedures p Lumbar Spine Decompression L4/5 60161 M48.062(Right) - Jesus Manuelchetan Kulkarni, DO Was Beta Devorah taken within 24 hours: N/A Was Clonidine taken within 24 hours: N/A Social: Social History: Tobacco and No alcohol Exam: Pre-Anes Outpt Exam: alert, oriented x 3 and regular rate & rhythm Airway: Submandibular: WNL Cervical ROM: WNL MP: 2 Dentition: False Pulmonary: Pulmonary: COPD CV/HEM: CV/HEM: HTN GI: GI: GERD Metabolic: Metabolic: Hyperlipidemia Musc/skel: Musc/skel: Lower Back Pain Anesthetic Plan: ASA status: 3 Anesthesia: General Risk of > 500 ml blood loss (7ml/kg in children): No PFSH Anesthesia PFSH: Medical History Fibromyalgia Family History Mother Cancer cervial COPD (chronic obstructive pulmonary disease) Father COPD (chronic obstructive pulmonary disease) Hypertension Diabetes Brother Diabetes one brother is insulin dependent and another brother that is not insulin dependent Sister Factor 5 Leiden mutation, heterozygous Sister Diabetes Non insulin dependent Social History Second hand smoke exposure: Yes Alcohol intake: former History of recent travel: No Data Anesthesia Cardiac Studies: No Data to Display
[2021-03-30] VITALS (11 sets, daily range): BP systolic 116–146; BP diastolic 58–87; PULSE 72–119; RESP 18; TEMP 36.2–36.8; O2SAT 92–98
--- NOTE | 2021-03-30 | SCC_ITS ---
Procedure Done: 1. Right L4/5 laminectomy with partial facetectomy 6.9 seconds of fluoroscopic guidance, for a cumulative dose of 1.75 mGy, was provided to Dr. Kulkarni by the radiology department. C-arm images of the lumbar spine were saved for the patient's permanent record. [facility]
--- NOTE | 2021-03-30 | XR_ITS ---
WS: [email or web address] C-ARM RADIOGRAPHS LUMBAR SPINE; 2 IMAGES HISTORY: Lumbar decompression COMPARISON: None available. Intraoperative imaging during spine decompression. Marker indicates the RIGHT lumbar spine at other t he L3-4 or L4-5 level. XR/XR lumbar spine 1V [id number] IMPRESSION: Intraoperative imaging during spine decompression.
--- NOTE | 2021-03-30 06:18 | P.ANESUD_ITS ---
Pre-Anesthetic Update Pre-Anesthetic Assessment: Date of Surgery/Procedure: 03/30/21 Preop Kalpana gnosis: Lumbar stenosis L4-5 Proposed Procedure: Operation Date: 03/30/21 07:00 Proposed Procedures p Lumbar Spine Decompression L4/5 50314 M48.062(Right) - Jesus Manuel Kulkarni, DO Any changes to Pre-Anesthetic Assessment?: No Last Intake: Last intake 03/29/2020 except sip of water with medications Vitals: Temperature 97.7 F 03/30/21 05:57 Temperature Source Temporal Artery S can 03/30/21 05:57 Pulse Rate 76 03/30/21 05:57 Respiratory Rate 18 03/30/21 05:57 Blood Pressure 116/60 03/30/21 05:57 Blood Pressure Hazel n 78 03/30/21 05:57 Pulse Oximetry 98 03/30/21 05:57 Oxygen Delivery Me thod 03/30/21 05:57 Exam: Pre-Anes Outpt Exam: alert, oriented x 3, clear to auscultation bilaterally and regular rate & rhythm Cardiac Studies: No Data to Display
[2021-03-30] MEDS: sodium chloride 0.9% 1,000 ML 30 ML IV (06:20)
--- NOTE | 2021-03-30 06:50 | PM.HP ---
Providers/Chief Complaint Primary Care Provider: Deloris Davey Chief Complaint: Spinal Stenosis History of Present Illness Sherrie Wilson is a 56 year old female This is a new 56 year old female patient who is here today due to 1 month of neck pain. Onset: sudden Duration: 1 month Characteristics: sharp Severity: 10 Location: neck Radiating symptoms: upper arms-back side Aggravating factors: Turing head, flexing or extending neck Alleviating factors: no Prior Tx: none Goals: open Current symptoms: Reports neck stiffness Quality: sharp Pain scale (0-10): 10 Radiation: right arm and left arm Duration: 1 month Activity at onset: unknown Associated symptoms: Reports none Exacerbated by: Reports flexion, extension, rotation right and rotation left Improved by: Reports nothing Was there an injury: No Red flags: age >50 Review of Systems Narrative: General ROS: negative for weight changes, fever ENT ROS: negative for nasal congestion, drainage or bleeding, sore throat, dysphagia or ear pain Eyes: PERRL Hematological and Lymphatic ROS: negative for swollen glands or abnormal bleeding Endocrine ROS: negative for polyuria/polydpsia or new changes in weight Respiratory ROS: negative for cough, shortness of breath, or wheezing Cardiovascular ROS: negative for chest pain or dyspnea on exertion Gastrointestinal ROS: negative for reflux, abdominal pain, change in bowel habits, or black or bloody stools Musculoskeletal ROS: negative for back pain, neck pain, or joint pain or swelling except for current problem Neurological ROS: negative for TIA or stoke symptoms Skin: no rashes Medications/Allergies Home Medications Medication Instructions Recorded Confirmed Last Taken Type atorvastatin 40 mg tablet 40 mg PO DAILY 04/08/20 03/30/21 03/29/21 History bupropion HCl 150 mg tablet,12 hr 150 mg PO BID 04/08/20 03/30/21 03/29/21 History sustained-release hydrochlorothiazide 12.5 mg tablet 12.5 mg PO QAM 04/08/20 03/30/21 03/30/21 History pantoprazole 40 mg tablet,delayed 40 mg PO QAM 04/08/20 03/30/21 03/30/21 History release acetaminophen [Tylenol Extra 1,000 mg PO Q4H PRN 12/15/20 03/25/21 Unknown History Strength] albuterol sulfate [ProAir HFA] 2 puff INHALATION Q4H PRN 12/15/20 03/25/21 Unknown History duloxetine [Cymbalta] 60 mg PO DAILY 12/15/20 03/30/21 03/29/21 History fluticasone propionate [Flonase] 2 spray INTRANASAL DAILY 12/15/20 03/30/21 03/30/21 History pilocarpine HCl 5 mg PO TID 12/15/20 03/30/21 03/30/21 History ropinirole 2 mg PO BEDTIME 12/15/20 03/30/21 03/29/21 History trazodone 150 mg PO BEDTIME 12/15/20 03/30/21 03/29/21 History gabapentin 600 mg tablet 600 mg PO TID #90 tab 01/12/21 03/30/21 03/29/21 Rx aripiprazole 2 mg tablet 2 mg PO DAILY 02/10/21 03/30/21 03/30/21 History meloxicam 7.5 mg tablet 7.5 mg PO DAILY 02/10/21 03/30/21 03/28/21 History Allergies Allergy/AdvReac Type Severity Reaction Status Date / Time amoxicillin [From Augmentin] Allergy Intermediate Swelling Verified 03/16/21 09:19 from face down to neck clavulanic acid Allergy Intermediate Swelling Verified 03/16/21 09:19 [From Augmentin] from face down to neck codeine Allergy Intermediate Rash and Verified 03/16/21 09:19 itching PFSH Acute PFSH: Medical History (Updated 03/30/21 @ 06:52 by Jesus Manuel Kulkarni DO) Fibromyalgia Family History Mother Cancer cervial COPD (chronic obstructive pulmonary disease) Father COPD (chronic obstructive pulmonary disease) Hypertension Diabetes Brother Diabetes one brother is insulin dependent and another brother that is not insulin dependent Sister Factor 5 Leiden mutation, heterozygous Sister Diabetes Non insulin dependent Social History Second hand smoke exposure: Yes Alcohol intake: former History of recent travel: No Vitals/I&O/Wt Last Vital Signs Temp 97.7 F 03/30/21 05:57 Pulse 76 03/30/21 05:57 Resp 18 03/30/21 05:57 BP 116/60 03/30/21 05:57 Pulse Ox 98 03/30/21 05:57 Physical Exam Narrative: EXAM NARRATIVE: CONSTITUTIONAL: The patient is a normal appearing [] in no apparent distress. GENERAL: Patient in no acute distress. CARDIAC: Regular rate and rhythm. CHEST: Normal inspiratory effort, normal respiratory rate. ABDOMEN: Soft and nontender. SKIN: Clear, warm and intact. NEURO?PSYCH: The patient is alert and oriented to person, place and time. Sensorv /SILT Motor StrengthShoulder abduction C5 5/5Wrist extension C6 5/5Elbow extension C7 5/5Hand Shear Scrapman C8 5/5Finger abduction T15/5 Radial/ Ulnar/ Median n intact LowerSensory (SILT)Motor StrengthHin flexion L2/3Ant/inner thigh 5/5Hip adduction L2/3 5/5Knee extension L4 Lat thigh, 5/5Toe dorsiflexion L5 5/5Ankle dorsiflexion L5/ J88Aajwdvt flexion S1 5/5 DTRBleeps 2+Triceps 2+Brachioradialis 2+Patellar 2+Achilles 2+ MUSCULOSKELETAL: [] UPPEREXTREMITIES: The patient had full active ROM in fingers, wrist, elbow, and shoulder. The patient demonstrated ability to fully flex/extend/abduct/adduct fingers, make ok sign, cross 2nd/3rd digits, extend 1st digit fully.. Radial pulse 2+, CR<2 seconds. LOWER EXTREMITIES: Pt has full, active ROM of toes, ankle, knee, and hip. Dorsalis pedis/posterior tibialis pulses 2+, CR<2 seconds. SPINE: Skin warm, dry, intact. A&P Assessment and plan (1) Lumbar stenosis with neurogenic claudication: Lumbar decompression Status: Acute Attestations Medical Necessity Statement*: failed conservative tx Coding Level of Care Code Acute Agriculture Extension Specialist for [facility] Fwd Diagnoses Lumbar stenosis with neurogenic claudication M48.062
[2021-03-30] MEDS: clindamycin 900 MG/50 ML PREMIX 100 MG IV (06:59)
--- NOTE | 2021-03-30 08:07 | PM.OP ---
Operative Report Date of procedure: March 30, 2021 Pre-op Diagnosis: Lumbar stenosis L4-5 Post-op diagnosis: same Procedure Done: 1. Right L4/5 laminectomy with partial facetectomy Surgeon: Jesus Manuel Kulkarni Alumni Relations Officer: Mayco Akins Alumni Relations Officer: The surgical nurse, Mayco Akins, PAC was needed for his expertise under the microscope. He was important and necessary throughout the procedure to complete in a safe and timely manner. He assisted with patient positioning prepping and draping tissue retraction suctioning of the operative field protection of the dural sac and tissue closure Anesthesia: General Estimated blood loss (mL): 5 Condition: stable Disposition: PACU Procedure: Patient is brought to the operative suite. After undergoing anesthesia they are placed in the prone position. All areas of impingement are well padded. Patient is then prepped and draped in the normal sterile fashion. A skin incision is made over the L4/5 level. This is confirmed under c-arm guidance. A series of dilators are passed and the tubular retractor is docked on the L4 lamina. A bovie is used to clear the soft tissue off the lamina and the L 4/5 facet joint. A high speed milagros is then used to perform the laminectomy and take down the medial aspect of the L 4/5 facet joint. A kerrison rongeure was then used to take down the remaining lamina and smooth the edge of the laminectomy up to the point where the ligamentum flavum attaches. Attention was then brought to the medial aspect of the facet joint. The remaining medial aspect of the superior and inferior aspect of the facet joint were taken down with the kerrison from the pedicle of L4 to L 5. The facet joint had significant hypertrophy. Attention was then brought to the Ligamentum Flavum. The ligament was taken down from the lamina of L4 to L5 and out medially to the remaining facet joint. The ligament was thick. The dura was then exposed. The dura was in good repair. The L4 nerve was then traced with a curette out the L4/5 foramen and found to be adequately decompressed. The L5 nerve was traced with a curette around the L5 pedicle. The lateral recess was opened with a kerrison helping to further decompress the L5 nerve. Wound is then irrigated copiously with saline and surgiflo is used to stop any bleeding. The tubular retractor is removed and the wound is closed with vicryl and monocryl suture. Glue is then used to protect the wound. A sterile dressing is then placed. Patient was then placed in the supine position and transferred to the PACU in stable condition.
--- NOTE | 2021-03-30 08:14 | P.PCN_ITS ---
PACU note PACU note: VSS, Good respiratory effort, report to ACCOUNT OFFICER Post-Anesthesia Exam: awake
--- NOTE | 2021-03-30 08:14 | PM.PACU ---
PACU note PACU note: VSS, Good respiratory effort, report to DIGITAL TECH Post-Anesthesia Exam: awake
[2021-03-30] MEDS: fentaNYL 50 mcg/mL INJ 2mL IVP (08:25)
[2021-03-30] MEDS: HYDROcodone-acetaminophen 5-325 mg Tablet 2 TAB PO (09:25)
--- NOTE | 2021-03-30 11:07 | ANE.PACU2 ---
Inpatient post-anesthesia follow up: Airway intact: Yes Vital signs: Temperature 97.8 F Pulse Rate 76 Respiratory Rate 18 Blood Pressure 126/58 Pulse Oximetry 94 Oxygen Delivery Me thod Nasal Cannula Oxygen Flow Rate 2 Fraction of Inspir ed Oxygen Hydration adequate: Yes Nausea and vomiting: No Pain level: 3 Mental status: Baseline
== END 2021-03-30 10:05 | disposition home or self-care (01) ==
PROVIDERS: PCP Physician Assistant; Visit Provider Orthopaedic Surgery
PROC: (CPT 63005; principal; 2021-03-30 07:00)
DX: M48.062 Spinal stenosis, lumbar region with neurogenic claudication (principal); M79.7 Fibromyalgia; J44.9 Chronic obstructive pulmonary disease, unspecified; I10 Essential (primary) hypertension; K21.9 Gastro-esophageal reflux disease without esophagitis; E78.5 Hyperlipidemia, unspecified; Z77.22 Contact with and (suspected) exposure to environmental tobacco smoke (acute) (chronic)
CPT/HCPCS: 63047; 72020; 76000; J1100; J2405; J2704; J2710; J3010; J3490; J3535; J7030

== ENCOUNTER 2021-04-14 10:29 | Outpatient (CLI) | payer MEDICAID, SELFPAY ==
--- NOTE | 2021-04-14 10:33 | XR_ITS ---
WS: [email or web address] Exam: XR foot LT min 3V* [id number] Date/Time of Exam: 04/14/2021 10:40 AM Reason For Exam: Z79.899 - Other jail (current) drug therapy No fracture or dislocation. Mild bunion deformity with DJD at the first MP joint. Minimal degenerativ e changes in the IP joints and midfoot joints. Plantar heel spur. XR/XR foot LT min 3V* [id number] IMPRESSION: 1. No fracture or bone destruction. 2. Bunion deformity and degenerative changes.
--- NOTE | 2021-04-14 10:33 | XR_ITS ---
WS: [email or web address] Exam: XR hand RT min 3V* [id number] Date/Time of Exam: 04/14/2021 10:40 AM Reason For Exam: Z79.899 - Other senior care (current) drug therapy No fracture or dislocation. Minimal degenerative changes in the IP joints. No soft tissue foreign bod ies are seen. Old avulsion of the ulnar styloid noted. XR/XR hand RT min 3V* [id number] IMPRESSION: 1. Minimal DJD. No fracture or bone destruction noted.
--- NOTE | 2021-04-14 10:33 | XR_ITS ---
WS: [email or web address] Exam: XR chest 2V* [id number] Date/Time of Exam: 04/14/2021 10:40 AM Reason For Exam: Z79.899 - Other termination clerk (current) drug therapy Comparison 12/15/2020. The lungs are clear and fully expanded. Normal cardiomediastinal structures and bony elements. No ple ural effusions. Scattered calcified granulomas in both lungs. XR/XR chest 2V* [id number] IMPRESSION: 1. No acute cardiopulmonary finding. No change.
--- NOTE | 2021-04-14 10:33 | XR_ITS ---
WS: [email or web address] Exam: XR hand LT min 3V* [id number] Date/Time of Exam: 04/14/2021 10:40 AM Reason For Exam: Z79.899 - Other residential (current) drug therapy No acute fracture or dislocation. Mild DJD of the IP joints. Normal soft tissues. XR/XR hand LT min 3V* [id number] IMPRESSION: 1. Minimal degenerative changes. No fracture or bone destruction.
--- NOTE | 2021-04-14 10:33 | XR_ITS ---
WS: [email or web address] Exam: XR foot RT min 3V* [id number] Date/Time of Exam: 04/14/2021 10:40 AM Reason For Exam: Z79.899 - Other [facility] (current) drug therapy No acute fracture or dislocation. Moderate bunion deformity noted. Mild degenerative changes in the I P joints and midfoot joints. Plantar heel spur. This second hammertoe deformity noted. XR/XR foot RT min 3V* [id number] IMPRESSION: 1. No fracture or bone destruction. 2. Degenerative changes as indicated above.
[2021-04-14 11:57] LABS: 25 Hydroxy Vitamin D 74 ng/mL (30-100)
[2021-04-14 12:12] LABS: Hepatitis B Core AB, Total Non-Reactive (Nonreactive); Hepatitis B Surface Antigen Non-Reactive (Nonreactive); Hepatitis C Virus Antibody Non-Reactive (Nonreactive)
--- NOTE | 2021-04-14 12:54 | MR_ITS ---
WS: [email or web address] MRI CERVICAL SPINE NONCONTRAST TECHNIQUE: Sagittal T1, T2 and STIR imaging. Axial T2, gradient, and fiesta imaging. CLINICAL INFORMATION: M54.2 - Cervicalgia COMPARISON: None. FINDINGS: Straightening of the normal cervical lordosis. Cord signal is normal. Mild disc bulging C5-6 and C6-7 . C2-C3: Normal. C3-C4: Mild disc bulging and osteophytic ridging. Mild bilateral left greater than right bony foramin al narrowing. Mild facet arthropathy. C4-C5: Mild disc osteophytic ridging. Mild facet arthropathy. Mild right and no significant left fora ronnie narrowing. Mild facet arthropathy. C5-C6: Mild disc osteophyte complex with endplate ridging. Moderate right and mild left bony foramina l narrowing. Spinal canal is patent. Mild facet arthropathy. C6-C7: Shallow central disc bulging with slight effacement of ventral thecal sac. Moderate left and n o significant right foraminal narrowing. Mild facet arthropathy. C7-T1: Mild left foraminal narrowing. Spinal canal is patent. Visualized upper thoracic canal is patent. Small central protrusion T3-4. Visualized brain stem structures: Normal. Prevertebral soft tissues: Normal. MR/MR cervical spin wo con* [id number] IMPRESSION: 1. Straightening of the normal cervical lordosis. No high-grade central canal narrowing. Cord signal is normal. 2. Shallow disc herniation C6-C7 with slight subligamentous extension. Slight contact of the cervical cord. Mild central canal stenosis. 3. Disc osteophyte complex C5-C6 with mild central canal stenosis. 4. Moderate right C5-6 and moderate left C6-C7 bony foraminal narrowing.
[2021-04-16 11:28] LABS: Quantiferon Mitogen 9.93 IU/mL; Quantiferon Nil 0.02 IU/mL; Quantiferon TB Gold NEGATIVE (NEGATIVE)
== END 2021-04-14 10:30 | disposition home or self-care (01) ==
PROVIDERS: PCP Physician Assistant; Referring Provider Internal Medicine Rheumatology; Visit Provider Orthopaedic Surgery
DX: Z11.59 Encounter for screening for other viral diseases (principal); M06.9 Rheumatoid arthritis, unspecified; Z79.899 Other long term (current) drug therapy; M50.223 Other cervical disc displacement at C6-C7 level; M25.78 Osteophyte, vertebrae; M48.02 Spinal stenosis, cervical region; M21.612 Bunion of left foot
CPT/HCPCS: 71046; 72141; 73130; 73630; 82306; 86480; 86704; 86803; 87340; 99204

== ENCOUNTER 2021-04-28 10:50 | Outpatient (CLI) | payer MEDICAID, SELFPAY ==
--- NOTE | 2021-04-28 10:54 | XR_ITS ---
WS: [email or web address] XR cervical spine 3V* [id number] REASON FOR EXAM: M05.79 - Rheumatoid arthritis with rheumatoid factor of m... FINDINGS: Mild straightening of the normal lordosis of the cervical spine. No significant vertebral body compression deformity and no focal vertebral body lesion. Normal odontoid and odontoid C1 articulation. Significant narrowing of the C5-C6 and C6-C7 disc spaces with moderate osteophyte formation. No significant listhesis. XR/XR cervical spine 3V* [id number] IMPRESSION: Cervical degenerative spondylosis. No change from 02/26/2021.
== END 2021-04-28 10:51 | disposition home or self-care (01) ==
LOC: RAD 10:52
PROVIDERS: PCP Physician Assistant; Visit Provider Internal Medicine Rheumatology
DX: M05.79 Rheumatoid arthritis with rheumatoid factor of multiple sites without organ or systems involvement (principal)
CPT/HCPCS: 72040

== ENCOUNTER → 2021-05-11 10:32 | Outpatient (BNVA) | payer MEDICAID, SELFPAY | PROVIDERS: PCP Physician Assistant; Visit Provider Anesthesiology Pain Medicine | DX: M79.18 Myalgia, other site (principal); M47.816 Spondylosis without myelopathy or radiculopathy, lumbar region; M51.36 Other intervertebral disc degeneration, lumbar region; M54.16 Radiculopathy, lumbar region; M25.552 Pain in left hip; M79.605 Pain in left leg; Z98.890 Other specified postprocedural states; Z87.19 Personal history of other diseases of the digestive system; Z87.891 Personal history of nicotine dependence; Z79.891 Long term (current) use of opiate analgesic | CPT/HCPCS: 20553; 99214; J1030; J3490 ==

== ENCOUNTER → 2021-05-14 00:01 | Outpatient (BNVA) | payer MEDICAID, SELFPAY | PROVIDERS: PCP Physician Assistant; Visit Provider Orthopaedic Surgery | DX: Z01.812 Encounter for preprocedural laboratory examination (principal); Z20.822 Contact with and (suspected) exposure to COVID-19 | CPT/HCPCS: 87635 ==

== ENCOUNTER 2021-05-20 05:20 | Day surgery (SDC) | payer MEDICAID, SELFPAY ==
[2021-05-19 11:03] VITALS: BMI 29.6
[2021-05-20] VITALS (12 sets, daily range): BP systolic 120–170; BP diastolic 69–94; PULSE 73–83; RESP 14–25; TEMP 36.2–36.8; O2SAT 90–100
--- NOTE | 2021-05-20 | XR_ITS ---
WS: [email or web address] Exam: XR cervical spine 3V* [id number] Date/Time of Exam: 05/20/2021 12:00 AM Reason For Exam: cervical stenosis with myelopathy AP and lateral intraoperative C-arm images of the cervical spine are submitted for evaluation. Final images demonstrate anterior interbody fusion from C5 to C7 with plate and screw fixation. The f usion is in good alignment. Disc spacers at C5-6 and C6-7. Endotracheal tube is in place. The C-spine is otherwise intact. XR/XR cervical spine 3V* [id number] IMPRESSION: 1. Anterior cervical fusion from C5 to C7 in satisfactory alignment.
--- NOTE | 2021-05-20 | SCC_ITS ---
Procedure done: 1. Anterior diskectomy C5/6 2. Anterior discectomy C6/7 3. Insertion of cage C5/6 4. Insertion of Cage C6/7 5. Instrumentation with anterior plate from C5-C7 6. Use of allograft 15.1 seconds of fluoroscopic guidance, for a cumulative dose of 0.84 mGy, was provided to Dr. Kulkarni by the radiology department. C-arm images of the cervical spine were saved for the patient's permanent record. [facility]
[2021-05-20] MEDS: sodium chloride 0.9% 1,000 ML 30 ML IV (06:23)
--- NOTE | 2021-05-20 06:32 | ANES.PREANE2 ---
Pre-Anesthetic Assessment Height/Weight: Height 1.57 m Weight 73.482 kg Temp Pulse Resp BP Pulse Ox 98.2 F 77 18 120/69 97 05/20/21 06:03 05/20/21 06:03 05/20/21 06:03 05/20/21 06:03 05/20/21 06:03 Preop Diagnosis: Cervical spondylosis with radiculopathy Operation Date: 05/20/21 07:00 Proposed Procedures p ACDF/ c5/6 AND c6/7//28356/33212/M47.12/cervical stenosis w my(Not Applicable) - Jesus Manuel Kulkarni, DO Familial anesthetic complications: None Was Beta Devorah taken within 24 hours: N/A Was Clonidine taken within 24 hours: N/A Last intake: Intake Last Liquid Date 05/19/21 Last Liquid Time 18:30 Last Solid Date 05/19/21 Last Solid Time 18:30 Social Tobacco and No alcohol Exam alert, oriented x 3, clear to auscultation bilaterally and regular rate & rhythm Airway Cervical ROM: within normal limits Mallampati: Class II Dentition: false Pulmonary Chronic Obstructive Pulmonary Disease CV/HEM Hypertension GI Gastroesophageal Reflux Disease Metabolic Hyperlipidemia [facility] [place] fribromy[place] Anesthetic Plan ASA status: 3 Anesthesia: General Medications/Allergies Home Medications Medication Instructions Recorded Confirmed Last Taken Type atorvastatin 40 mg tablet (Lipitor) 40 mg PO DAILY 04/08/20 05/20/21 05/19/21 History bupropion HCl 150 mg tablet,12 hr 150 mg PO BID 04/08/20 05/20/21 05/19/21 History sustained-release (Wellbutrin SR) hydrochlorothiazide 12.5 mg tablet 12.5 mg PO QAM 04/08/20 05/20/21 05/19/21 History pantoprazole 40 mg tablet,delayed 40 mg PO QAM 04/08/20 05/20/21 05/19/21 History release albuterol sulfate 90 mcg/actuation 2 puff INHALATION Q4H PRN 12/15/20 05/20/21 05/19/21 History aerosol inhaler (ProAir HFA) duloxetine 60 mg capsule,delayed 60 mg PO DAILY 12/15/20 05/20/21 05/19/21 History release (Cymbalta) fluticasone propionate 50 2 spray INTRANASAL DAILY 12/15/20 05/20/21 05/19/21 History mcg/actuation nasal spray,suspension pilocarpine HCl 5 mg tablet 5 mg PO TID 12/15/20 05/20/21 05/19/21 History ropinirole 2 mg tablet 2 mg PO BEDTIME 12/15/20 05/20/21 05/19/21 History trazodone 150 mg tablet 150 mg PO BEDTIME 12/15/20 05/20/21 05/19/21 History gabapentin 600 mg tablet 600 mg PO TID #90 tab 01/12/21 05/20/21 05/19/21 Rx aripiprazole 2 mg tablet (Abilify) 2 mg PO DAILY 02/10/21 05/20/21 05/19/21 History folic acid 1 mg tablet 1 mg PO DAILY #90 tab 04/14/21 05/20/21 05/19/21 Rx methotrexate sodium 2.5 mg tablet 15 mg PO .Q7days #30 tab 04/14/21 05/20/21 05/14/21 Rx oxycodone 5 mg tablet 5 mg PO Q4H PRN 7 Days #40 tab 05/07/21 05/20/21 05/19/21 Rx tizanidine 4 mg tablet 4 mg PO BID PRN #60 tab 05/11/21 05/20/21 05/19/21 Rx umeclidinium 62.5 mcg-vilanterol 1 inh INHALATION DAILY 05/19/21 05/20/21 05/20/21 History 25 mcg/actuation powdr for inhalation (Anoro Ellipta) Allergies Allergy/AdvReac Type Severity Reaction Status Date / Time amoxicillin [From Augmentin] Allergy Intermediate Swelling Verified 05/20/21 06:04 from face down to neck clavulanic acid Allergy Intermediate Swelling Verified 05/20/21 06:04 [From Augmentin] from face down to neck codeine Allergy Intermediate Rash and Verified 05/20/21 06:04 itching hydrocodone Allergy Intermediate hives, and Verified 05/20/21 06:04 itching acetaminophen Allergy itch Verified 05/20/21 06:04 [From Lorcet (hydrocodone)] prednisone Allergy Intermediate hives, Uncoded 05/20/21 06:04 rash, swelling Current Medications Generic Name Dose Route Start Last Admin Trade Name Freq PRN Reason Stop Dose Admin Sodium Chloride 1,000 mls @ 30 mls/hr 05/20/21 06:00 05/20/21 06:23 Sodium Chloride 0.9% IV 05/21/21 05:59 30 mls/hr .Q24H FEDERICO Administration PFSH Anesthesia Medical History delivery delivered FHx: throat cancer Fibromyalgia High risk medication use Hypercholesteremia Hypertension Immunization counseling Seropositive rheumatoid arthritis of multiple sites Umbilical hernia surgery 2014 Surgical History H/O: hysterectomy History of delivery x3 Previous back surgery 03/30/2021 Family History Mother Cancer cervial COPD (chronic obstructive pulmonary disease) Father COPD (chronic obstructive pulmonary disease) Hypertension Diabetes Brother Diabetes one brother is insulin dependent and another brother that is not insulin dependent Sister Factor 5 Leiden mutation, heterozygous Sister Diabetes Non insulin dependent Other Hyperlipidemia Denies family history of Rheumatoid arthritis Lupus Chronic kidney disease (CKD) Family history of premature coronary artery disease Stroke Social History Smoking and tobacco status: former smoker Second hand smoke exposure: Yes Alcohol intake: former History of recent travel: No Data Anesthesia Cardiac Studies: No Data to Display
--- NOTE | 2021-05-20 06:35 | W.PM.OPSUD ---
Surgery/Procedure H&P Update DATE OF PROCEDURE: May 20, 2021 DATE H&P PERFORMED: 04/23/21 H&P UPDATE INFORMATION: I have reviewed H&P completed within last 30 days, I have examined patient prior to procedure and No changes to prior documentation PREOP DIAGNOSIS: Cervical spondylosis with radiculopathy PLANNED PROCEDURE: Operation Date: 05/20/21 07:00 Proposed Procedures p ACDF/ c5/6 AND c6/7//00510/25679/M47.12/cervical stenosis w my(Not Applicable) - Jesus Manuel Kulkarni DO
[2021-05-20] MEDS: clindamycin 900 MG/50 ML PREMIX 100 MG IV (07:06)
--- NOTE | 2021-05-20 09:04 | P.OP_ITS ---
Operative Report Date of procedure: May 20, 2021 Pre-op diagnosis: Preop Diagnosis Cervical spondylosis with radiculopathy Post-op diagnosis: same Procedure done: 1. Anterior diskectomy C5/6 2. Anterior discectomy C6/7 3. Insertion of cage C5/6 4. Insertion of Cage C6/7 5. Instrumentation with anterior plate from C5-C7 6. Use of allograft Surgeon: Jesus Manuel Kulkarni Embedded Software Design Engineer: Mayco Akins Anesthesia: General Estimated blood loss (mL): 10 Procedure: The patient was taken to the operating room, where he underwent general endotracheal anesthesia without complications. He was then positioned supine on the operating table, and all areas of impingement were well padded. The arms were carefully padded and tucked at his sides. A roll was placed between the shoulder blades.. An x-ray was done to determine the appropriate level for the skin incision. The entire neck was then sterilely prepped and draped in the usual fashion. Neuromonitoring was attached prior to prepping. A transverse skin incision was made and carried down to the platysma muscle. This was then split in line with its fibers. Blunt dissection was carried down medial to the carotid sheath and lateral to the trachea and esophagus until the anterior cervical spine was visualized. A needle was placed into a disc and an x-ray was done to determine its location. The longus colli muscles were then elevated bilaterally with the electrocautery unit. Self-retaining retractors were placed deep to the longus colli muscle. Attention was brought to the C5/6 level that was confirmed on x-ray. A caspar pin was placed into the C5 vertebrae and the C6 vertebrae. The disk space was then distracted. The microscope was then brought in. A radical anterior discectomies were performed at C5/6. This included complete removal of the anterior annulus, nucleus, and posterior annulus. The posterior longitudinal ligament was removed as were the posterior osteophytes. Foraminotomies were then accomplished bilaterally. This was done using a high speed milagros, kerrison rongeurs and curretes Once all of this was accomplished, the curved currette was used to check for any residual compression. The central canal was wide open as were the foramen. A high-speed bur was used to remove the cartilaginous endplates above and below the interspace. Bleeding cancellous bone was exposed. The disc space were measured and appropriate size cage were placed sterilely onto the field. Allograft graft was packed into the cages. The cage was then placed and there was good juxtaposition against the bleeding decorticated surfaces and good distraction of each interspace. Attention was brought to the next interspace. The [place] pins were removed. Bone wax was used to prevent any bleeding from occurring at the pin sites. Attention was brought to the C6/7 level that was confirmed on x-ray. A caspar pin was placed into the C6 vertebrae and the C7 vertebrae. The disk space was then distracted. The microscope was then brought in. A radical anterior discectomies were performed at C6/7. This included complete removal of the anterior annulus, nucleus, and posterior annulus. The posterior longitudinal ligament was removed as were the posterior osteophytes. Foraminotomies were then accomplished bilaterally. This was done using a high speed milagros, kerrison rongeurs and curretes Once all of this was accomplished, the curved currette was used to check for any residual compression. The central canal was wide open as were the foramen. A high-speed bur was used to remove the cartilaginous endplates above and below the interspace. Bleeding cancellous bone was exposed. The disc space were measured and appropriate size cage were placed sterilely onto the field. Allograft graft was packed into the cages. The cage was then placed and there was good juxtaposition against the bleeding decorticated surfaces and good distraction of each interspace. Attention was brought to the next interspace. The [place] pins were removed. Bone wax was used to prevent any bleeding from occurring at the pin sites. The appropriate size anterior cervical locking plate was chosen and bent into gentle lordosis. One screws were then placed into each of the vertebral bodies at C5,C6,C7. There was excellent purchase. A final x-ray was done confirming good position of the hardware and Cages. The locking screws were then applied, a lso with excellent purchase. Following a final copious irrigation, there was good hemostasis and no dural leaks. The carotid pulse was strong. The wounds were then closed in layers using 2-0 Vicryl suture for the platysma muscle, 2-0 Vicryl suture for the subcutaneous tissue, and 4-0 monocryl suture in a subcuticular skin closure. Glue was placed followed by application of a sterile dressing. The drain was hooked to bulb suction. A soft collar was applied. The patient was then carefully returned to the supine position on his hospital bed where he was reversed and extubated and taken to the recovery room having tolerated the procedure well.
[2021-05-20] MEDS: oxyCODONE-APAP 5-325 mg Tablet 1 TAB PO (10:52)
--- NOTE | 2021-05-20 12:53 | ANE.PACU2 ---
Inpatient post-anesthesia follow up: Airway intact: Yes Vital signs: Temperature 98.0 F Pulse Rate 77 Respiratory Rate 16 Blood Pressure 145/94 Pulse Oximetry 95 Oxygen Delivery Me thod Room Air Oxygen Flow Rate 2 Fraction of Inspir ed Oxygen Hydration adequate: Yes Nausea and vomiting: No Pain level: 2 Mental status: Baseline
== END 2021-05-20 11:45 | disposition home or self-care (01) ==
PROVIDERS: PCP Physician Assistant; Visit Provider Orthopaedic Surgery
PROC: 0RB30ZZ Excision of Cervical Vertebral Disc, Open Approach (ICD-10-PCS; CPT 22551; principal; 2021-05-20 07:00)
DX: M47.812 Spondylosis without myelopathy or radiculopathy, cervical region (principal); J44.9 Chronic obstructive pulmonary disease, unspecified; I10 Essential (primary) hypertension; E78.5 Hyperlipidemia, unspecified; M79.7 Fibromyalgia; Z85.01 Personal history of malignant neoplasm of esophagus; Z79.899 Other long term (current) drug therapy; E78.00 Pure hypercholesterolemia, unspecified; Z87.891 Personal history of nicotine dependence
CPT/HCPCS: 20930; 22551; 22552; 22845; 22853 ×2; 72040; 76000; 97760; C1713; C9359; J1100; J1170; J1200; J2405; J2704; J3010; J3490; J7030; L0174

== ENCOUNTER 2021-06-02 09:53 | Outpatient (CLI) | payer MEDICAID, SELFPAY ==
--- NOTE | 2021-06-02 10:11 | CT_ITS ---
WS: [id number] LDCT LUNG CANCER SCREENING TECHNIQUE: Noncontrast CT of the chest with coronal and sagittal reformatted images. CLINICAL INFORMATION: HX OF TOBACCO USE COMPARISON: None. DLP: 77.61 mGy.cm DIvol: Mean CTDIvol: 1.60 (mGy) All CT scans at [facility] use at least one of these dose optimization techniques: automat ed exposure control; mA and/or kV adjustment per patient size (includes targeted exams where dose is matched to clinical indication); or iterative reconstruction. FINDINGS: Calcified granuloma RIGHT upper lobe. Bibasilar atelectasis. No focal pneumonia or pleural fluid. No acute pulmonary infiltrates. Slightly ectatic ascending thoracic aorta measuring 3.9 CM. Aortic calci fication. Calcified RIGHT hilar nodes. No mediastinal or hilar lymphadenopathy. No axillary lymphaden opathy. Tiny amount of focal pleural thickening along the RIGHT minor fissure. Adrenal glands are normal. Partially visualized dense parenchymal tissue outer RIGHT breast. Recommen d further evaluation with diagnostic mammography. CT/CT lung screening [id number] IMPRESSION: Recommend bilateral diagnostic mammography with spot compression vi ews outer RIGHT breast followed by ultrasound. LUNG-RADS: 2S-Benign Appearance or Behavior with Significant Findings FOLLOW UP: 12 Month: Continue annual screening with LDCT
== END 2021-06-02 09:54 | disposition home or self-care (01) ==
LOC: RAD 09:54
PROVIDERS: PCP Physician Assistant; Visit Provider Physician Assistant
DX: Z12.2 Encounter for screening for malignant neoplasm of respiratory organs (principal); Z87.891 Personal history of nicotine dependence
CPT/HCPCS: 71271

== ENCOUNTER → 2021-06-04 10:03 | Outpatient (BNVA) | payer MEDICAID, SELFPAY | PROVIDERS: PCP Physician Assistant; Visit Provider Physician Assistant | DX: M47.22 Other spondylosis with radiculopathy, cervical region (principal); Z98.1 Arthrodesis status | CPT/HCPCS: 72040 ==

== ENCOUNTER → 2021-07-02 09:31 | Outpatient (BNVA) | payer MEDICAID, SELFPAY | PROVIDERS: PCP Physician Assistant; Visit Provider Physician Assistant | DX: Z47.89 Encounter for other orthopedic aftercare (principal); Z98.890 Other specified postprocedural states; Z98.1 Arthrodesis status | CPT/HCPCS: 72040; 99213; 99999 ==

== ENCOUNTER → 2021-07-27 09:37 | Outpatient (BNVA) | payer MEDICAID, SELFPAY | PROVIDERS: PCP Physician Assistant; Visit Provider Internal Medicine Rheumatology | DX: M05.79 Rheumatoid arthritis with rheumatoid factor of multiple sites without organ or systems involvement (principal); Z79.899 Other long term (current) drug therapy; Z71.85 Encounter for immunization safety counseling | CPT/HCPCS: 99214 ==

== ENCOUNTER 2021-07-29 11:45 | Outpatient (CLI) | payer MEDICAID, SELFPAY ==
[2021-07-29 13:00] LABS: Basophils % 0.3 %; Eosinophils % 0.3 %; Hematocrit 39.8 % (37.0-47.0); Hemoglobin 13.1 g/dL (11.5-15.3); Lymphocytes # 0.5 10^3/uL (0.8-4.8); Lymphocytes % 4.8 %; Mean Corpuscular HGB Conc 32.9 g/dL (30.0-36.0); Mean Corpuscular Hemoglobin 32.2 pg (28.0-34.0); Mean Corpuscular Volume 97.8 fl (81-99); Mean Platelet Volume 10.1 fL (7.4-10.4); Monocytes # 0.2 10^3/uL (0.2-0.9); Monocytes % 1.7 %; Neutrophils # 8.83 10^3/uL (1.8-7.7); Neutrophils % 92.5 %; Nucleated Red Blood Cells % 0 %; Platelet Count 261 10^3/cmm (130-400); Red Blood Count 4.07 10^6/uL (4.1-5.3); Red Cell Distribution Width 15.3 % (12.1-15.1); White Blood Count 9.6 10^3/uL (4.0-10.0)
[2021-07-29 13:22] LABS: Albumin Level 4.1 g/dL (3.5-5.2); Alkaline Phosphatase 136 IU/L (35-105); Globulin 3.2 g/dL (1.3-4.6); Glomerular Filtration Rate 86.6 mL/min (90-130); Total Bilirubin 0.2 mg/dL (0.15-1.2); Total Protein 7.3 g/dL (6.6-8.7)
[2021-07-29 13:28] LABS: Alanine Aminotransferase 52 U/L (0-33); Aspartate Amino Transferase 25 U/L (0-32)
== END 2021-07-29 11:46 | disposition home or self-care (01) ==
LOC: LAB 11:48
PROVIDERS: PCP Physician Assistant; Visit Provider Internal Medicine Rheumatology
DX: M05.79 Rheumatoid arthritis with rheumatoid factor of multiple sites without organ or systems involvement (principal); Z79.899 Other long term (current) drug therapy
CPT/HCPCS: 80076; 82565; 85025; 86140

== ENCOUNTER → 2021-08-10 10:22 | Outpatient (BNVA) | payer MEDICAID, SELFPAY | PROVIDERS: PCP Physician Assistant; Visit Provider Anesthesiology Pain Medicine | DX: M51.36 Other intervertebral disc degeneration, lumbar region (principal); M47.816 Spondylosis without myelopathy or radiculopathy, lumbar region; M54.16 Radiculopathy, lumbar region; M54.2 Cervicalgia; M25.552 Pain in left hip; M79.605 Pain in left leg; M62.830 Muscle spasm of back; Z98.890 Other specified postprocedural states; Z87.19 Personal history of other diseases of the digestive system | CPT/HCPCS: 99213; 99214 ==

== ENCOUNTER → 2021-08-18 09:36 | Outpatient (BNVA) | payer MEDICAID, SELFPAY | PROVIDERS: PCP Physician Assistant; Visit Provider Physician Assistant | DX: M70.62 Trochanteric bursitis, left hip (principal); Z47.89 Encounter for other orthopedic aftercare; Z98.890 Other specified postprocedural states; Z98.1 Arthrodesis status | CPT/HCPCS: 72040; 99024 ==

== ENCOUNTER → 2021-11-11 11:09 | Outpatient (BNVA) | payer MEDICAID, SELFPAY | PROVIDERS: PCP Physician Assistant; Visit Provider Anesthesiology Pain Medicine | DX: M25.552 Pain in left hip (principal); M79.605 Pain in left leg; F17.200 Nicotine dependence, unspecified, uncomplicated; M54.16 Radiculopathy, lumbar region; M47.816 Spondylosis without myelopathy or radiculopathy, lumbar region; M51.36 Other intervertebral disc degeneration, lumbar region; M62.830 Muscle spasm of back; Z87.19 Personal history of other diseases of the digestive system; Z98.890 Other specified postprocedural states; M54.2 Cervicalgia | CPT/HCPCS: 99214 ==

== ENCOUNTER → 2021-11-16 10:07 | Outpatient (BNVA) | payer MEDICAID, SELFPAY | PROVIDERS: PCP Physician Assistant; Visit Provider Internal Medicine Rheumatology | DX: M05.79 Rheumatoid arthritis with rheumatoid factor of multiple sites without organ or systems involvement (principal); Z79.899 Other long term (current) drug therapy; Z71.85 Encounter for immunization safety counseling; K21.9 Gastro-esophageal reflux disease without esophagitis | CPT/HCPCS: 36415; 80076; 82565; 85025; 86140; 99214 ==

== ENCOUNTER → 2021-11-26 12:58 | Outpatient (BNVA) | payer MEDICAID, SELFPAY | PROVIDERS: PCP Physician Assistant; Visit Provider Anesthesiology Pain Medicine | DX: M17.0 Bilateral primary osteoarthritis of knee (principal) | CPT/HCPCS: 20610 ==

== ENCOUNTER → 2021-12-24 13:46 | Outpatient (BNVA) | payer MEDICAID, SELFPAY | PROVIDERS: PCP Physician Assistant; Visit Provider Anesthesiology Pain Medicine | DX: M25.561 Pain in right knee (principal); M25.562 Pain in left knee; M54.2 Cervicalgia; M51.36 Other intervertebral disc degeneration, lumbar region; M47.816 Spondylosis without myelopathy or radiculopathy, lumbar region; M54.16 Radiculopathy, lumbar region; M25.552 Pain in left hip; M79.605 Pain in left leg; M62.830 Muscle spasm of back; Z98.890 Other specified postprocedural states; Z87.19 Personal history of other diseases of the digestive system | CPT/HCPCS: 99214 ==

== ENCOUNTER 2021-12-25 08:32 | Outpatient (CLI) | payer MEDICAID, SELFPAY ==
--- NOTE | 2021-12-25 08:41 | XR_ITS ---
WS: [id number] Exam: XR knee RT 4V [id number] Date/Time of Exam: 12/25/2021 9:01 AM Reason For Exam: M25.569 - Pain in unspecified knee No fracture or dislocation noted. Articular relationships are intact. No joint effusion. XR/XR knee RT 4V [id number] Impression: Normal right knee Kellgren-Tristan Classification: 0
--- NOTE | 2021-12-25 08:41 | XR_ITS ---
WS: [id number] Exam: XR knee LT 4V [id number] Date/Time of Exam: 12/25/2021 8:41 AM Reason For Exam: M25.569 - Pain in unspecified knee No acute fracture or dislocation. [id number] degenerative thinning of the medial joint compartm ent. No joint effusion. Normal soft tissues. XR/XR knee LT 4V [id number] IMPRESSION: 1. Mild to moderate degenerative narrowing of the medial joint compartment. No other significant finding.
== END 2021-12-25 08:33 | disposition home or self-care (01) ==
LOC: RAD 08:33
PROVIDERS: PCP Physician Assistant; Visit Provider Anesthesiology Pain Medicine
DX: M25.562 Pain in left knee (principal); M25.561 Pain in right knee
CPT/HCPCS: 73564

== ENCOUNTER 2022-01-18 07:25 | Emergency (ER) | payer MEDICAID, SELFPAY ==
[2022-01-18 07:26] VITALS: BP 125/65; PULSE 103; RESP 18; TEMP 36.1; O2SAT 97
--- NOTE | 2022-01-18 07:32 | PC.NURSE ---
pt reports hx of osteoarthritis and pain to left hip. reports pain has progressed and today she is unable to walk. pt also c/o headache since midnight. last fall was a week ago, denies other trauma or injuries. pt reports headache is 10/10 and describes it as the worst headache ever. claim inspector equal, speech clear, PERRL at 3mm bilat, push/pull equal. lung sounds clear bilat, bowel sounds present x4 quad. Per EMS, they had to assist her to the ambulance, pt had received 2 separate doses of 50mcg fentanyl
--- NOTE | 2022-01-18 07:42 | CT_ITS ---
WS: [id number] CT HEAD NONCONTRAST HISTORY: sudden onset, stabbing headache TECHNIQUE: Contiguous axial imaging performed through the brain in 2.5 mm imaging. Bone and soft tiss ue windows. Sagittal and coronal reformats reviewed. All CT scans at [facility] use at least one of these dose optimization techniques: automated exposure control; mA and/or kV adjustment per pa tient size (includes targeted exams where dose is matched to clinical indication); or iterative recon struction. DLP: 1013.72 mGy.cm COMPARISON: 10/27/2020 No acute intracranial hemorrhage, midline shift or mass effect. Mild atrophy and mild small vessel ischemic disease. No extra-axial fluid collection. Ventricles: Normal size with no hydrocephalus. No inferior displacement of the cerebellar tonsils. Paranasal sinuses: As visualized are clear. Mastoid air cells: Progressive opacification of the RIGHT mastoid air cells the small amount of soft tissue extending into the inner ears. No fracture of the skull base is identified. Calvarium and scalp: Skull is intact with no soft tissue edema or swelling. CT/CT head wo con* [id number] IMPRESSION: 1. No acute intracranial hemorrhage or edema. 2. No skull fracture or skull base fracture identified. 3. Increasing opacification of the RIGHT mastoid air cells with minimal extens ion into the inner ear. No fractures are identified. May be related to chronic mastoiditis.
--- NOTE | 2022-01-18 07:43 | XR_ITS ---
WS: [id number] Exam: XR hip LT 2-3V wo/w pel* [id number] Date/Time of Exam: 01/18/2022 7:46 AM Reason For Exam: left hip pain Findings: No fractures or bone anomalies are noted. No unusual soft tissue masses or calcifications are seen. The bony elements of the hip are in adequate alignment. XR/XR hip LT 2-3V wo/w pel* [id number] IMPRESSION: Negative left hip. Tonnis classification: 0
--- NOTE | 2022-01-18 07:46 | ED_ITS ---
HPI - Headache General: Chief Complaint: Headache Stated Complaint: headache, left hip pain Time Seen by Provider: 01/18/22 07:32 History of Present Illness: Patient is a 56-year-old female comes to the ED via EMS with headache. Symptoms started at midnight last night. She says she had a sudden onset of a sharp headache that started in the front of her head and radiated to the back of her head. Headache also radiates down into her neck. Headache worsens with any head movements or with bright lights. Denies any nausea or vomiting. Denies history of migraines. Denies any vision changes, numbness or tingling to 1 side of her body or any weakness to 1 side of her body. Patient also was having acute on chronic left hip pain. She has had injections in her left hip in the past. She tripped and had a fall over a week ago that she states has worsened her left hip pain. Patient was given 50 MCG's of fentanyl by EMS while in route to ED. After fentanyl patient says her hip pain has improved a lot but she is still having a headache. Associated symptoms: Deny chest pain, fever(s), nausea, rash or vomiting Review of Systems Const: Denies: fever(s), chills or fatigue Eyes: Denies: change in vision or eye discomfort ENMT: Denies: throat pain, odynophagia, nasal discharge or nasal congestion Card: Denies: chest pain, palpitations, edema, swelling of feet/ankles, dyspnea on exertion or orthopnea Resp: Denies: dyspnea, productive cough or non-productive cough GI: Denies: abdominal pain, nausea, vomiting, diarrhea, constipation or hematochezia : Denies: flank pain, dysuria or hematuria Musc: Reports: extremity pain (Acute on chronic left hip pain.); Denies: neck pain, back pain or extremity swelling Skin/Breast: Denies: rash or new lesions Neuro: Reports: headache(s); Denies: numbness in extremities or weakness in extremities [facility] ED PFSH: Medical History delivery delivered FHx: throat cancer Fibromyalgia High risk medication use Hypercholesteremia Hypertension Immunization counseling Seropositive rheumatoid arthritis of multiple sites Umbilical hernia surgery 2015 Surgical History H/O: hysterectomy History of delivery x3 Previous back surgery 03/30/2021 Family History Mother Cancer cervial COPD (chronic obstructive pulmonary disease) Father COPD (chronic obstructive pulmonary disease) Hypertension Diabetes Brother Diabetes one brother is insulin dependent and another brother that is not insulin dependent Sister Factor 5 Leiden mutation, heterozygous Sister Diabetes Non insulin dependent Other Hyperlipidemia Denies family history of Rheumatoid arthritis Lupus Chronic kidney disease (CKD) Family history of premature coronary artery disease Stroke Social History Smoking and tobacco status: current some day smoker Second hand smoke exposure: Yes Alcohol intake: former History of recent travel: No Physical Exam Const: COMMON NORMALS: patient oriented x3 and alert GENERAL APPEARANCE: cooperative and comfortable HENMT: COMMON NORMALS: normocephalic HEAD & SCALP: normocephalic MOUTH: Normal oral and palatal mucosa present THROAT: posterior oropharynx normal and uvula midline Eye: COMMON NORMALS: Equal, round and reactive pupils present and EOMs intact bilaterally GENERAL EYE: appearance normal, both eyes and all related structures PUPIL: Yes Equal, round and reactive pupils present Neck/C-Spine: COMMON NORMALS: supple GENERAL: Yes normal visual inspection Lymph: LYMPHATIC: no lymphadenopathy noted Resp: COMMON NORMALS: normal respiratory effort, No retractions, No use of accessory muscles and clear to auscultation bilaterally AUSCULTATION: clear to auscultation bilaterally Cardio: COMMON NORMALS: regular rate, regular rhythm, S1 normal heart sound present, S2 normal heart sound present, No gallops present (Cardio), No clicks present (Cardio), No murmurs present (Cardio) and Peripheral pulses 2+ throughout RATE: regular rate RHYTHM: regular rhythm HEART SOUNDS: S1 normal heart sound present and S2 normal heart sound present PERIPHERAL PUL SES: Peripheral pulses 2+ throughout GI: COMMON NORMALS: Normal to inspection, nondistended, normoactive bowel sounds present, Soft to palpation, non-tender and no masses PALPATION: Yes Soft to palpation : COMMON NORMALS: Yes no CVA tenderness BLADDER/KIDNEY EXAM: Yes no CVA tenderness Back/Pelvis: COMMON NORMALS: no CVA tenderness Extremity: GENERAL: Yes normal exam except as noted Neuro: COMMON NORMALS: patient oriented x3, CN's II-XII intact bilaterally, moves all extremities, no focal motor deficits and no sensory deficits noted SENSORIUM/ORIENTATION: Yes alert SENSORY EXAM: Yes extremities (intact) MOTOR EXAM: 5/5 motor strength present throughout Skin: COMMON NORMALS: no rashes or lesions noted GENERAL SKIN EXAM: no rashes or lesions noted and dry skin Course Vital Signs: Vital signs: Vital Signs Temperature 96.9 F L 01/18/22 07:26 Pulse Rate 90 01/18/22 09:57 Respiratory Rate 16 01/18/22 09:57 Blood Pressure 129/72 01/18/22 09:57 Pulse Oximetry 95 01/18/22 09:57 Oxygen Delivery Me thod 01/18/22 07:26 MDM - Headache Medical Decision Making Patient is a 56-year-old female comes to the ED via EMS with headache. Sudden severe onset of headache. No history of migraines. She is also complaining of acute on chronic left hip pain. She tripped and had a fall over a week ago which worsened her left hip pain. Denies any neuro symptoms. Vitals are stable. Exam is benign. Neuro exam showed no deficits. Head CT showed no acute intracranial findings. Left hip x-ray showed no acute findings. Patient was given a dose of Toradol, Decadron, Benadryl and her symptoms improved. She was stable for discharge home and diagnosed with a headache and chronic left hip pain. Told to follow-up with PCP within the next week for reevaluation. Return ED precautions given. Patient understood and agreed with plan. Lab Data Radiology Impressions Head CT 01/18/22 07:42 IMPRESSION: 1. No acute intracranial hemorrhage or edema. 2. No skull fracture or skull base fracture identified. 3. Increasing opacification of the RIGHT mastoid air cells with minimal extension into the inner ear. No fractures are identified. May be related to chronic mastoiditis. Hip/Pelvis X-Ray 01/18/22 07:43 IMPRESSION: Negative left hip. Tonnis classification: 0 Discharge Plan Discharge Patient Disposition: Home Clinical Impression: Chronic left hip pain Headache Qualifiers: Headache type: unspecified Headache chronicity pattern: acute headache Intractability: not intractable Qualified Code(s): R51.9 - Headache, unspecified Condition: Stable Prescriptions: No Action atorvastatin [Lipitor] 40 mg tablet 40 mg PO DAILY hydrochlorothiazide 12.5 mg tablet 12.5 mg PO QAM pantoprazole 40 mg tablet,delayed release (DR/EC) 40 mg PO QAM bupropion HCl [Wellbutrin SR] 150 mg tablet sustained-release 12 hr 150 mg PO BID aripiprazole [Abilify] 2 mg tablet 2 mg PO DAILY gabapentin 600 mg tablet 600 mg PO TID Qty: 90 0RF amitriptyline 25 mg tablet 25 mg PO .hs methylprednisolone acetate [Depo-Medrol] 80 mg/mL suspension 80 mg Infiltration ONCE Qty: 1 0RF bupivacaine (PF) 0.25 % (2.5 mg/mL) solution 10 ml Infiltration ONCE Qty: 1 0RF tizanidine 4 mg tablet 4 mg PO BID PRN (Reason: muscle spasticity) Qty: 60 2RF leflunomide 20 mg tablet 20 mg PO DAILY Qty: 30 3RF folic acid 1 mg tablet 1 mg PO DAILY Qty: 90 3RF methylprednisolone 8 mg tablet See Rx Instructions PO DAILY Qty: 90 1RF Rx Instructions: 3 tabs daily for 1wk then 2tabs daily for 1week then stay on 1 tab daily PO daily; sulfasalazine 500 mg tablet 1 g PO BID Qty: 120 3RF Rx Instructions: give with food (meal/snack) Magic Mouthwas See Rx Instructions .ROUTE .COMPLEX Qty: 8 0RF Rx Instructions: Take 2 teaspoons and swish and spit QID; pilocarpine HCl 5 mg Tablet 5 mg PO TID ropinirole 2 mg Tablet 2 mg PO BEDTIME albuterol sulfate [ProAir HFA] 90 mcg/actuation Hfa Aerosol Inhaler 2 puff INHALATION Q4H PRN (Reason: Shortness Of Breath) fluticasone propionate 50 mcg/actuation Naselle,Suspension 2 spray INTRANASAL DAILY duloxetine [Cymbalta] 60 mg Capsule,Delayed Release(Dr/Ec) 60 mg PO DAILY Anoro Ellipta 62.5-25 mcg/actuation Blister With Device 1 inh INHALATION DAILY Discharge Orders: Discharge ED (Routine); Ordered 01/18/22 Ordered By: Simon Rodriguez Referrals: Deloris Davey PA [Primary Care Provider] - Discharge Diet: Regular Discharge Activity: Increase activity as tolerated Patient Instructions: Acute Headache (DC) Activity Restrictions/Additional Instructions: Follow-up with medical provider as directed in the next 5 to 7 days reevaluation. Continue taking all home medications as previously prescribed. Return to the ER or your medical provider if condition worsens. Please read and understand discharge instructions. Thank you for choosing [facility] for your healthcare needs today. Rosanna bruce realize this is an emergency room and that we are providing you with a medical screening exam and this may not be complete and all inclusive of all the testing and or work up that you may need to determine your ailment or severity of your illness. It is very important that you follow up as instructed or that you return to the Emergency Department should you have concerns or if your condition changes or worsens in any way. Coding Level of Care Code ED Jewelry Bench Worker for Wilbert Ruelas Exam Comprehensive
[2022-01-18] MEDS: dexamethasone 4 mg/mL INJ 8 MG IVP (07:53)
[2022-01-18] MEDS: diphenhydrAMINE 50 mg/mL SDV 1mL 25 MG IVP (07:59)
[2022-01-18] MEDS: ketorolac 30 mg/mL INJ IVP (08:03)
[2022-01-18 08:29] VITALS: BP 119/72; PULSE 95; O2SAT 95
[2022-01-18 09:00] VITALS: BP 124/71; PULSE 94; O2SAT 94
[2022-01-18 09:29] VITALS: BP 128/72; PULSE 89; O2SAT 96
[2022-01-18 09:57] VITALS: BP 129/72; PULSE 90; RESP 16; O2SAT 95
== END 2022-01-18 09:58 | disposition home or self-care (01) ==
PROVIDERS: Emergency Provider Physician Assistant; PCP Physician Assistant
DX: R51.9 Headache, unspecified (principal); G89.29 Other chronic pain; M25.552 Pain in left hip; F17.210 Nicotine dependence, cigarettes, uncomplicated; I10 Essential (primary) hypertension
CPT/HCPCS: 70450; 73502; 96374; 96375; 99285; J1100; J1200; J1885

== ENCOUNTER → 2022-01-21 14:08 | Outpatient (BNVA) | payer MEDICAID, SELFPAY | PROVIDERS: PCP Physician Assistant; Visit Provider Anesthesiology Pain Medicine | DX: M51.36 Other intervertebral disc degeneration, lumbar region (principal); M54.16 Radiculopathy, lumbar region; M47.816 Spondylosis without myelopathy or radiculopathy, lumbar region; M25.552 Pain in left hip; M25.561 Pain in right knee; M25.562 Pain in left knee; M62.830 Muscle spasm of back; F17.200 Nicotine dependence, unspecified, uncomplicated; Z87.19 Personal history of other diseases of the digestive system | CPT/HCPCS: 99214 ==

== ENCOUNTER → 2022-02-03 10:43 | Outpatient (BNVA) | payer MEDICAID, SELFPAY | PROVIDERS: PCP Physician Assistant; Visit Provider Internal Medicine Cardiovascular Disease | DX: R00.2 Palpitations (principal) | CPT/HCPCS: 93270 ==

== ENCOUNTER → 2022-02-08 10:01 | Outpatient (BNVA) | payer MEDICAID, SELFPAY | PROVIDERS: PCP Physician Assistant; Visit Provider Internal Medicine Rheumatology | DX: M05.79 Rheumatoid arthritis with rheumatoid factor of multiple sites without organ or systems involvement (principal); Z79.899 Other long term (current) drug therapy; Z71.85 Encounter for immunization safety counseling; Z85.89 Personal history of malignant neoplasm of other organs and systems | CPT/HCPCS: 36415; 80076; 82565; 85025; 86140; 99214 ==

== ENCOUNTER → 2022-02-11 13:54 | Outpatient (BNVA) | payer MEDICAID, SELFPAY | PROVIDERS: PCP Physician Assistant; Visit Provider Anesthesiology Pain Medicine | DX: M16.12 Unilateral primary osteoarthritis, left hip (principal); F17.200 Nicotine dependence, unspecified, uncomplicated | CPT/HCPCS: 20610; 77002; J1030; J3490 ==

== ENCOUNTER → 2022-03-02 09:27 | Outpatient (BNVA) | payer MEDICAID, SELFPAY | PROVIDERS: PCP Physician Assistant; Visit Provider Anesthesiology Pain Medicine | DX: M25.552 Pain in left hip (principal); M25.551 Pain in right hip; M25.561 Pain in right knee; M25.562 Pain in left knee; M54.2 Cervicalgia; M62.830 Muscle spasm of back; M51.36 Other intervertebral disc degeneration, lumbar region; M54.16 Radiculopathy, lumbar region; M47.816 Spondylosis without myelopathy or radiculopathy, lumbar region | CPT/HCPCS: 99214 ==

== ENCOUNTER → 2022-04-07 14:35 | Outpatient (BNVA) | payer MEDICAID, SELFPAY | PROVIDERS: PCP Physician Assistant; Visit Provider Anesthesiology Pain Medicine | DX: M54.16 Radiculopathy, lumbar region (principal) | CPT/HCPCS: 64483; J1040; J3490 ==

== ENCOUNTER → 2022-05-10 09:16 | Outpatient (BNVA) | payer MEDICAID, SELFPAY | PROVIDERS: PCP Physician Assistant; Visit Provider Anesthesiology Pain Medicine | DX: M48.062 Spinal stenosis, lumbar region with neurogenic claudication (principal); M54.16 Radiculopathy, lumbar region; M51.36 Other intervertebral disc degeneration, lumbar region; M47.816 Spondylosis without myelopathy or radiculopathy, lumbar region; M25.552 Pain in left hip; M25.561 Pain in right knee; M25.562 Pain in left knee; M62.830 Muscle spasm of back; Z87.19 Personal history of other diseases of the digestive system; M20.41 Other hammer toe(s) (acquired), right foot; Z98.890 Other specified postprocedural states | CPT/HCPCS: 99214 ==

== ENCOUNTER → 2022-05-18 14:27 | Outpatient (BNVA) | payer MEDICAID, SELFPAY | PROVIDERS: PCP Physician Assistant; Visit Provider Podiatrist Foot & Ankle Surgery | DX: M20.41 Other hammer toe(s) (acquired), right foot (principal); M25.871 Other specified joint disorders, right ankle and foot; M21.611 Bunion of right foot | CPT/HCPCS: 73630; 99204 ==

== ENCOUNTER → 2022-05-24 10:16 | Outpatient (BNVA) | payer MEDICAID, SELFPAY | PROVIDERS: PCP Physician Assistant; Visit Provider Internal Medicine Rheumatology | DX: M05.79 Rheumatoid arthritis with rheumatoid factor of multiple sites without organ or systems involvement (principal); Z79.899 Other long term (current) drug therapy; Z71.85 Encounter for immunization safety counseling | CPT/HCPCS: 36415; 80076; 82565; 85025; 86140; 99214 ==

== ENCOUNTER 2022-05-26 20:00 | Outpatient (CLI) | payer MEDICAID, SELFPAY | END 2022-05-26 20:01 | disposition home or self-care (01) | LOC: SLEEP 05-27 05:21 | PROVIDERS: PCP Physician Assistant; Visit Provider Physician Assistant | DX: G47.33 Obstructive sleep apnea (adult) (pediatric) (principal) | CPT/HCPCS: 95810 ==

== ENCOUNTER 2022-06-08 07:41 | Outpatient (CLI) | payer MEDICAID, SELFPAY ==
--- NOTE | 2022-06-08 08:00 | MR_ITS ---
WS: [id number] MRI LUMBAR SPINE NONCONTRAST TECHNIQUE: Sagittal T1, T2 and STIR imaging. Axial T1 and T2 imaging. CLINICAL INFORMATION: M48.062 - Spinal stenosis, lumbar region with neurogenic ... COMPARISON: MRI October 24, 2020 FINDINGS: Mild lumbar curve. No acute compression. No high-grade central canal stenosis. Disc bulging worse at L3-L4 and L4-L5. Prior postoperative changes anterior cervical fusion C5-C7. L1-L2: Mild facet arthropathy. Spinal canal and foramen are patent. L2-L3: Mild annular bulging. Slight narrowing of the RIGHT subarticular recess. Small RIGHT foraminal protrusion with moderate RIGHT foraminal narrowing. Impingement on the exiting RIGHT L2 nerve root. This is unchanged. Mild facet arthropathy. L3-L4: Mild annular bulging. Impingement on the LEFT subarticular recess and traversing LEFT L4 nerve root. LEFT foraminal protrusion with moderate LEFT foraminal narrowing. Mild RIGHT foraminal narrowi ng. Moderate facet arthropathy. L4-L5: Shallow RIGHT pericentral protrusion. Impingement on traversing RIGHT L5 nerve root in the sub articular recess. Foramen are patent. Moderate facet arthropathy. This is progressed slightly compare d to previous. L5-S1: Mild annular bulging. Moderate facet arthropathy. Spinal canal and foramen are patent. Visualized pelvic bony structures: Normal. Paravertebral soft tissues: Normal. MR/MR lumbar spine wo con* [id number] IMPRESSION: 1. RIGHT pericentral protrusion L4-L5 slightly progressed compared to previous . Impingement traversing RIGHT L5 nerve root. Mild RIGHT L4-L5 foraminal narrow ing. 2. Moderate RIGHT foraminal narrowing L2-L3 with a small RIGHT foraminal protr usion unchanged. 3. Narrowing of the LEFT subarticular recess L3-L4 is stable. 4. LEFT foraminal protrusion L3-L4 with moderate LEFT foraminal narrowing impi nges the exiting LEFT L3 nerve root unchanged from previous. 5. Moderate facet arthropathy L3-L5.
== END 2022-06-08 07:42 | disposition home or self-care (01) ==
LOC: RAD 07:42
PROVIDERS: PCP Physician Assistant; Visit Provider Anesthesiology Pain Medicine
DX: M48.062 Spinal stenosis, lumbar region with neurogenic claudication (principal); M51.36 Other intervertebral disc degeneration, lumbar region; M47.896 Other spondylosis, lumbar region
CPT/HCPCS: 72148

== ENCOUNTER 2022-08-06 13:00 | Emergency (ER) | payer MEDICAID, SELFPAY ==
[2022-08-06 13:05] VITALS: BP 155/81; PULSE 80; RESP 15; O2SAT 97; BMI 32.5
--- NOTE | 2022-08-06 13:44 | ED_ITS ---
HPI - Extremity Injury (Upper) General: Chief Complaint: Extremity Injury, Upper Stated Complaint: fall, left arm pain Time Seen by Provider: 08/06/22 13:12 Source: patient Mode of arrival: ambulatory Limitations: no limitations History of Present Illness: Patient is a nice 57-year-old female who presents to ED today for evaluation of a left arm injury that she sustained earlier today after tripping and falling directly onto her left arm. She believes she may have fallen onto an outstretched hand. She states she has pain from her proximal hand all the way up to her elbow. She sustained a small abrasion to the elbow. Tetanus is up-to-date. She denies striking her head or LOC. No neck or back pain. She has no other complaints other than pain to the left arm. MD complaint: injury to: left, elbow, forearm, wrist and hand Onset (ago): hour(s) Other Extremity Injury: Left: hand, wrist, elbow and arm Other injuries: none Place: home Severity: moderate Relieving factors: immobilization Exacerbating factors: movement of extremity Context: fall and direct blow Associated symptoms: Reports no associated symptoms; Denies neck pain or weakness in extremities Review of Systems Card: Denies: chest pain Resp: Denies: dyspnea GI: Denies: abdominal pain Musc: Reports: extremity pain (L forearm), joint pain (L wrist/elbow), joint swelling (L wrist) and limited range of motion; Denies: neck pain or back pain Neuro: Denies: headache(s), numbness in extremities, weakness in extremities or sensory changes [facility] ED PFSH: Medical History delivery delivered FHx: throat cancer Fibromyalgia High risk medication use Hypercholesteremia Hypertension Immunization counseling Seropositive rheumatoid arthritis of multiple sites Umbilical hernia surgery 2014 Surgical History H/O: hysterectomy History of delivery x3 Previous back surgery 03/30/2021 Family History Mother Cancer cervial COPD (chronic obstructive pulmonary disease) Father COPD (chronic obstructive pulmonary disease) Hypertension Diabetes Brother Diabetes one brother is insulin dependent and another brother that is not insulin dependent Sister Factor 5 Leiden mutation, heterozygous Sister Diabetes Non insulin dependent Other Hyperlipidemia Denies family history of Rheumatoid arthritis Lupus Chronic kidney disease (CKD) Family history of premature coronary artery disease Stroke Social History Smoking and tobacco status: former smoker Second hand smoke exposure: Yes Alcohol intake: former Substance/Drug Use: never Physical Exam 2 Const: COMMON NORMALS: no acute distress, average body habitus, patient oriented x3, no limitations, healthy appearing, alert and well nourished GENERAL APPEARANCE: cooperative ORIENTATION/CONSCIOUSNESS: Yes awake, Yes oriented to person, Yes oriented to place and Yes oriented to time HENMT: COMMON NORMALS: normocephalic and atraumatic HEAD & SCALP: normal to inspection, normocephalic and atraumatic; no Ibarra's sign, no hematoma and no raccoon eyes FACE & SINUS: normal facial exam Eye: GENERAL EYE: appearance normal, both eyes and all related structures Neck/C-Spine: COMMON NORMALS: full ROM GENERAL: Yes normal visual inspection CERVICAL SPINE: Yes cervical ROM normal, No pain with cervical ROM, No Cervical spine tenderness, No step off deformity and No Paracervical muscle tenderness Chest: COMMONS NORMALS: normal inspection of the chest and normal palpation of entire chest wall Resp: COMMON NORMALS: normal respiratory effort and clear to auscultation bilaterally AUSCULTATION: clear to auscultation bilaterally Cardio: COMMON NORMALS: regular rate and regular rhythm RATE: regular rate RHYTHM: regular rhythm Back/Pelvis: COMMON NORMALS: thoracic and lumbar spine normal to inspection, no thoracic nor lumbar tenderness and thoraco-lumbar ROM normal Extremity: GENERAL: Yes normal exam except as noted LEFT UPPER EXTREMITY: Yes elbow joint, Yes lower arm and Yes wrist OTHER: patient with tenderness from L elbow down to proximal hand; most of tenderness localized to the left wrist that is fairly swollen concerning for fracture; radial pulse is normal/normal cap refill/normal sensation; she maintains full ROM of L elbow joint and no swelling appreciated here-small abrasion; full ROM of digits Neuro: KEVIN COMA SCALE: document GCS findings Kevin coma scale eye opening: Spontaneous Kevin coma scale verbal response: Orientated Kevin coma scale motor response: Obey commands [place] coma scale total score: 15 COMMON NORMALS: patient oriented x3, CN's II-XII intact bilaterally, moves all extremities, no focal motor deficits, no sensory deficits noted and gait normal SENSORIUM/ORIENTATION: Yes alert, Yes oriented to person, Yes oriented to place and Yes oriented to time SPEECH: speech normal GAIT: Yes Normal gait present Skin: TRAUMA: abrasion (L elbow/forearm) and no lacerations Course Vital Signs: Vital signs: Vital Signs Pulse Rate 80 08/06/22 13:05 Respiratory Rate 15 08/06/22 13:05 Blood Pressure 155/81 08/06/22 13:05 Pulse Oximetry 97 08/06/22 13:05 Oxygen Delivery Me thod Room Air 08/06/22 13:05 MDM - Extremity Injury (Upper) Medical Decision Making Personal interpretation of patient's XRs shows a nondisplaced distal radial fracture. She will be placed in a sugar-tong splint/sling and I will place referral for orthopedics. Lab Data Radiology Impressions Elbow X-Ray 08/06/22 13:54 Impression: Negative left elbow. Discharge Plan Discharge Patient Disposition: Home Clinical Impression: Closed fracture of distal end of left radius Qualifiers: Encounter type: initial encounter Fracture morphology: unspecified fracture morphology Qualified Code(s): S52.502A - Unspecified fracture of the lower end of left radius, initial encounter for closed fracture Condition: Stable Prescriptions: New hydrocodone-acetaminophen 5-325 mg tablet 1 tab PO Q6H PRN (Reason: pain) Qty: 14 0RF No Action atorvastatin [Lipitor] 40 mg tablet 40 mg PO DAILY hydrochlorothiazide 12.5 mg tablet 12.5 mg PO QAM bupropion HCl [Wellbutrin SR] 150 mg tablet sustained-release 12 hr 150 mg PO BID aripiprazole [Abilify] 2 mg tablet 2 mg PO DAILY amitriptyline 25 mg tablet 25 mg PO .hs methylprednisolone acetate [Depo-Medrol] 80 mg/mL suspension 80 mg Infiltration ONCE Qty: 1 0RF bupivacaine (PF) 0.25 % (2.5 mg/mL) solution 10 ml Infiltration ONCE Qty: 1 0RF lorazepam [Ativan] 0.5 mg tablet 0.5 mg PO DAILY PRN (Reason: anxiety) Qty: 1 0RF Rx Instructions: Take 1 hour prior to procedure. leflunomide 20 mg tablet 20 mg PO DAILY Qty: 30 3RF pantoprazole 40 mg tablet,delayed release (DR/EC) See Rx Instructions .ROUTE .COMPLEX Qty: 90 1RF Dose Instruction: TAKE ONE TABLET BY MOUTH EACH MORNING 30 MINUTES BEFORE A MEAL Rx Instructions: TAKE ONE TABLET BY MOUTH EACH MORNING 30 MINUTES BEFORE A MEAL sulfasalazine 500 mg tablet 1 g PO BID Qty: 120 3RF Rx Instructions: give with food (meal/snack) prednisone 5 mg tablet 7.5 mg PO DAILY Qty: 45 3RF Orencia 125 mg/mL syringe 125 mg SUBCUT .Q7days Qty: 4 3RF Magic Mouthwas See Rx Instructions .ROUTE .COMPLEX Qty: 4 3RF Rx Instructions: Take 2 teaspoons and swish and spit QID; meloxicam 15 mg tablet 15 mg PO DAILY Qty: 20 0RF Rx Instructions: Not to be taken with other NSAIDS. Do not take everyday. gabapentin 600 mg tablet 600 mg PO TID Qty: 90 0RF prednisone 20 mg tablet See Rx Instructions PO .COMPLEX PRN (Reason: joint pain flare) Qty: 30 1RF Rx Instructions: take 1 daily for 5-7 days PRN joint pain flare PO PRN; lorazepam [Ativan] 0.5 mg tablet 0.5 mg PO DAILY PRN (Reason: anxiety) Qty: 1 0RF Rx Instructions: Take 1 hour prior to procedure. prednisone 20 mg tablet See Rx Instructions PO .COMPLEX PRN (Reason: joint pain flare) Qty: 30 1RF Rx Instructions: take 1 tab daily for 5-7 days as needed for arthritis flare PO PRN; folic acid 1 mg tablet See Rx Instructions .ROUTE .COMPLEX Qty: 90 0RF Dose Instruction: Take 3 tablets by mouth once daily Rx Instructions: Take 3 tablets by mouth once daily pilocarpine HCl 5 mg Tablet 5 mg PO TID ropinirole 2 mg Tablet 2 mg PO BEDTIME albuterol sulfate [ProAir HFA] 90 mcg/actuation Hfa Aerosol Inhaler 2 puff INHALATION Q4H PRN (Reason: Shortness Of Breath) fluticasone propionate 50 mcg/actuation [place],Suspension 2 spray INTRANASAL DAILY duloxetine [Cymbalta] 60 mg Capsule,Delayed Release(Dr/Ec) 60 mg PO DAILY Anoro Ellipta 62.5-25 mcg/actuation Blister With Device 1 inh INHALATION DAILY Discharge Orders: Discharge ED (Routine); Ordered 08/06/22 Ordered By: Lo Byrd Referrals: Deloris Davey PA [Primary Care Provider] - Patient Instructions: Wrist Fracture in Adults (ED) Activity Restrictions/Additional Instructions: As we discussed stay in your splint until seen by orthopedics. Case management should reach out to you early next week to set you up with this appointment. Coding Level of Care Code ED [employer]unk [employer] Curer for Wilbert Ruelas
--- NOTE | 2022-08-06 13:54 | XR_ITS ---
WS: [id number] Left elbow, 3 views, 08/06/2022 Clinical Data: fall/injury Comparison: None. Findings: No fractures or dislocations are seen. The radial head is normal. The soft tissues are unremarkable. XR/XR elbow LT min 3V* [id number] Impression: Negative left elbow.
--- NOTE | 2022-08-06 13:54 | XR_ITS ---
WS: [id number] Left hand, 3 views, 08/06/2022 Clinical Data: fall/trauma Comparison: Left hand, 04/14/2021 Findings: There is a line on the ulnar aspect of the distal left radius and a deformity on the dorsal aspect of the distal left radius which may represent an undisplaced fracture. The distal ulna is intact. The c arpal bones are normal. The metacarpals and phalanges are intact. XR/XR hand LT min 3V* [id number] Impression: Possible fracture of distal left radius and recommend follow-up x-ray in 8-10 d ays.
--- NOTE | 2022-08-06 13:54 | XR_ITS ---
WS: [id number] Left wrist, 3 views, 08/06/2022 Clinical Data: fall/trauma Comparison: None. Findings: No fractures or dislocations are seen. The carpal bones are intact. There is no soft tissue swelling. The distal radius and ulna are not remarkable. XR/XR wrist LT min 3V* [id number] Impression: Negative left wrist.
--- NOTE | 2022-08-09 07:59 | DCPLANNER ---
Addendum entered by Chanell Mancia 08/11/22 14:24: Patient had a follow up appointment scheduled with ortho - patient did attend appointment Original Note: security shift manager had message to schedule a follow up appointment for patient with ortho. security shift manager sent patients information to the front office staff at ortho. Patients information will be printed and reviewed. Clinic will call patient with appointment information.
== END 2022-08-06 15:25 | disposition home or self-care (01) ==
PROVIDERS: Emergency Provider Physician Assistant; PCP Physician Assistant
DX: S52.502A Unspecified fracture of the lower end of left radius, initial encounter for closed fracture (principal); Z87.891 Personal history of nicotine dependence; I10 Essential (primary) hypertension; W01.0XXA Fall on same level from slipping, tripping and stumbling without subsequent striking against object, initial encounter
CPT/HCPCS: 73080; 73110; 73130; 99283

== ENCOUNTER 2022-08-11 14:30 | Outpatient (CLI) | payer MEDICAID, SELFPAY ==
--- NOTE | 2022-08-11 14:41 | CT_ITS ---
WS: [id number] LDCT LUNG CANCER SCREENING HISTORY: HISTORY OF TOBACCO USE TECHNIQUE: Axial imaging performed from the apices to 1 cm below the costophrenic angles. Coronal and sagittal reformats are submitted with axial MIP series. All CT scans at [facility] use at least one of these dose optimization techniques: automated exposure control; mA and/or kV adjustment per patient size (includes targeted exams where dose is matched to clinical indication); or iterativ e reconstruction. DLP: 92.11 mGy.cm DIvol: Mean CTDIvol: 2.20 (mGy) COMPARISON: 06/02/2021 Diagnostic quality: Satisfactory Lungs: Benign granuloma RIGHT upper lobe. No mass, nodule or endobronchial lesion. No pneumonia. Mild chronic emphysema. Heart: Normal size heart with no pericardial effusion.. Other findings: Mild atherosclerosis aorta. No aneurysm. Normal size pulmonary artery. No change in t he chest wall or visualized breast tissue as described on the prior exam. Mammogram was recommended. No adrenal mass. Splenic granulomata. CT/CT lung screening [id number] IMPRESSION: LUNG-RADS: 1-Negative FOLLOW UP: 12 Month: Continue annual screening with LDCT OTHER FINDINGS (S MODIFIER): None.
== END 2022-08-11 14:31 | disposition home or self-care (01) ==
PROVIDERS: PCP Physician Assistant; Visit Provider Physician Assistant
DX: Z13.83 Encounter for screening for respiratory disorder NEC (principal); S52.502A Unspecified fracture of the lower end of left radius, initial encounter for closed fracture; X58.XXXA Exposure to other specified factors, initial encounter
CPT/HCPCS: 71271; 73110

== ENCOUNTER 2022-08-11 15:20 | Outpatient (CLI) | payer MEDICAID, SELFPAY | END 2022-08-11 15:21 | disposition home or self-care (01) | LOC: SPT 15:21 | PROVIDERS: PCP Physician Assistant; Visit Provider Specialist | DX: Z46.89 Encounter for fitting and adjustment of other specified devices (principal); S52.592D Other fractures of lower end of left radius, subsequent encounter for closed fracture with routine healing; X58.XXXD Exposure to other specified factors, subsequent encounter | CPT/HCPCS: 97760; L3982 ==

== ENCOUNTER → 2022-08-18 11:39 | Outpatient (BNVA) | payer MEDICAID, SELFPAY | PROVIDERS: PCP Physician Assistant; Visit Provider Internal Medicine Rheumatology | DX: M05.79 Rheumatoid arthritis with rheumatoid factor of multiple sites without organ or systems involvement (principal); Z79.899 Other long term (current) drug therapy | CPT/HCPCS: 36415; 80076; 82306; 82565; 85025; 86140 ==

== ENCOUNTER 2022-08-24 14:46 | Outpatient (CLI) | payer MEDICAID, SELFPAY ==
--- NOTE | 2022-08-24 14:52 | XR_ITS ---
WS: [id number] Exam: XR wrist LT min 3V* [id number] Date/Time of Exam: 08/24/2022 3:13 PM Reason For Exam: fracture Comparison 08/11/2022. There is a mildly impacted fracture of the distal radius. No significant angulation noted. No other f ractures the wrist are identified. Soft tissues are unremarkable. XR/XR wrist LT min 3V* [id number] IMPRESSION: 1. Mildly impacted fracture of the distal radial metaphysis.
--- NOTE | 2022-08-24 15:00 | XR_ITS ---
WS: [id number] DEXA (DUAL ENERGY X-RAY ABSORPTIOMETRY) Bone mineral density was performed using a [email or web address] machine. HISTORY: M81.0 - Age-related osteoporosis without current pathology... COMPARISON: None available. Lumbar spine BMD (L1-L4): 1.093 g/cm2 T score: -0.7 Z score: -0.4 Total hip BMD: Left: 0.888 g/cm2. T score: -0.9 Z score: -0.6 Right: 0.820 g/cm2. T score: -1.5 Z score: -1.2 10 year probability of a major osteoporotic fracture is 15.6%. XR/XR DEXA axial skeleton* [id number] IMPRESSION: OSTEOPENIA based upon the WHO classification for females.
== END 2022-08-24 14:47 | disposition home or self-care (01) ==
LOC: RAD 14:48
PROVIDERS: PCP Physician Assistant; Visit Provider Internal Medicine Rheumatology
DX: S62.102A Fracture of unspecified carpal bone, left wrist, initial encounter for closed fracture (principal); M81.0 Age-related osteoporosis without current pathological fracture; M85.80 Other specified disorders of bone density and structure, unspecified site; X58.XXXA Exposure to other specified factors, initial encounter
CPT/HCPCS: 73110; 77080

== ENCOUNTER → 2022-09-13 13:18 | Outpatient (BNVA) | payer MEDICAID, SELFPAY | PROVIDERS: PCP Physician Assistant; Visit Provider Specialist | DX: S52.502D Unspecified fracture of the lower end of left radius, subsequent encounter for closed fracture with routine healing (principal); W01.0XXD Fall on same level from slipping, tripping and stumbling without subsequent striking against object, subsequent encounter | CPT/HCPCS: 73110 ==

== ENCOUNTER 2022-10-26 12:36 | Outpatient (CLI) | payer MEDICARE, MEDICAID, SELFPAY ==
--- NOTE | 2022-10-26 13:18 | MM_ITS ---
WS: [email or web address] BILATERAL 3D TOMOSYNTHESIS DIGITAL SCREENING MAMMOGRAPHY WITH CAD CLINICAL INFORMATION: SCREENING HISTORY: Screening mammogram. No current complaints. COMPARISON: 2020 TECHNIQUE: Bilateral CC and MLO views. FINDINGS: The breasts are composed of heterogeneous fibroglandular density tissue, which can limit the detectio n of small underlying mass lesions. Partially obscured ovoid nodular density upper outer RIGHT breast measuring 12 mm. Recommend RIGHT breast diagnostic mammography and ultrasound for further evaluation . LEFT breast is unchanged and unremarkable. MM/[place] [id number] IMPRESSION: BI-RADS: 0-Incomplete: Need additional imaging evaluation FOLLOW UP: Need Additional Imaging Recommend RIGHT breast diagnostic mammography and ultrasound for further evalua tion.
== END 2022-10-26 12:37 | disposition home or self-care (01) ==
PROVIDERS: PCP Physician Assistant; Visit Provider Physician Assistant
DX: Z12.31 Encounter for screening mammogram for malignant neoplasm of breast (principal)
CPT/HCPCS: 77063; 77067

== ENCOUNTER → 2022-11-17 10:05 | Outpatient (BNVA) | payer MEDICARE, MEDICAID, SELFPAY | PROVIDERS: PCP Physician Assistant; Visit Provider Internal Medicine Rheumatology | DX: Z79.899 Other long term (current) drug therapy (principal); M05.79 Rheumatoid arthritis with rheumatoid factor of multiple sites without organ or systems involvement; Z71.85 Encounter for immunization safety counseling | CPT/HCPCS: 80076; 82565; 85025; 86140; 99214 ==

== ENCOUNTER 2022-12-02 07:42 | Oncology outpatient (recurring) (ONCR) | payer MEDICARE, MEDICAID, SELFPAY ==
[2022-12-02 08:11] VITALS: BP 132/77; PULSE 83; RESP 16; TEMP 36.6
[2022-12-02] MEDS: sodium chloride 0.9% 250 ML 75 ML IV (08:28)
[2022-12-02] MEDS: acetaminophen 325 mg Tablet 650 MG PO (08:28)
[2022-12-02] MEDS: diphenhydrAMINE 50 mg/mL SDV 1mL 25 MG IVP (08:29)
[2022-12-02] MEDS: abatacept 750 MG in sodium chloride 0.9% (100 ml) 100 ML 200 MG IV (08:49)
[2022-12-02 09:29] VITALS: BP 135/61; PULSE 67; RESP 16; TEMP 36.7; O2SAT 97
== END 2022-12-25 23:59 | disposition home or self-care (01) ==
PROVIDERS: PCP Physician Assistant; Visit Provider Internal Medicine Rheumatology
DX: M05.9 Rheumatoid arthritis with rheumatoid factor, unspecified (principal)
CPT/HCPCS: 96365; 96375; J0129; J1200; J7050

== ENCOUNTER 2022-12-02 13:42 | Outpatient (CLI) | payer MEDICARE, MEDICAID, SELFPAY ==
--- NOTE | 2022-12-02 14:22 | MM_ITS ---
WS: [id number] RIGHT 3D TOMOSYNTHESIS DIGITAL MAMMOGRAPHY WITH CAD CLINICAL INFORMATION: ABNORMAL MAMMO HISTORY: Additional views COMPARISON: 10/26/2022 TECHNIQUE: 3 views of the right breast were obtained. FINDINGS: The right breast is composed of heterogeneous fibroglandular density tissue, which can limit the dete ction of small underlying mass lesions. Incidental punctate and lucent centered calcifications. Spot compression views demonstrate resolution of the previously described nodular density. No suspicious a bnormalities today. Recommend return to annual screening mammography. IMPRESSION: MM/[place] [id number] BI-RADS: 2-Benign FOLLOW UP: 1 Year Follow-up Recommend return to annual screening mammography.
== END 2022-12-02 13:43 | disposition home or self-care (01) ==
PROVIDERS: PCP Physician Assistant; Visit Provider Physician Assistant
DX: R92.8 Other abnormal and inconclusive findings on diagnostic imaging of breast (principal)
CPT/HCPCS: 77061; G0279

== ENCOUNTER 2022-12-30 07:46 | Oncology outpatient (recurring) (ONCR) | payer MEDICARE, MEDICAID, SELFPAY ==
[2022-12-30 08:11] VITALS: BP 143/69; PULSE 84; RESP 18; TEMP 36.8; O2SAT 98
[2022-12-30] MEDS: acetaminophen 325 mg Tablet 650 MG PO (08:31)
[2022-12-30] MEDS: sodium chloride 0.9% 250 ML 75 ML IV (08:35)
[2022-12-30] MEDS: diphenhydrAMINE 50 mg/mL SDV 1mL 25 MG IVP (08:35)
[2022-12-30] MEDS: abatacept 750 MG in sodium chloride 0.9% (100 ml) 100 ML 200 MG IV (09:03)
[2022-12-30 09:54] VITALS: BP 121/56; PULSE 68; RESP 18; TEMP 36.9; O2SAT 98
== END 2023-01-25 23:59 | disposition home or self-care (01) ==
PROVIDERS: PCP Physician Assistant; Visit Provider Internal Medicine Rheumatology
DX: M05.9 Rheumatoid arthritis with rheumatoid factor, unspecified (principal); Z53.9 Procedure and treatment not carried out, unspecified reason
CPT/HCPCS: 96375; 96413; J0129; J1200; J7050

== ENCOUNTER → 2023-02-08 08:31 | Outpatient (BNVA) | payer MEDICARE, MEDICAID, SELFPAY | PROVIDERS: PCP Physician Assistant; Visit Provider Anesthesiology Pain Medicine | DX: Z98.890 Other specified postprocedural states; Z87.19 Personal history of other diseases of the digestive system; M62.830 Muscle spasm of back; M51.36 Other intervertebral disc degeneration, lumbar region; M47.816 Spondylosis without myelopathy or radiculopathy, lumbar region; M54.16 Radiculopathy, lumbar region; M20.41 Other hammer toe(s) (acquired), right foot; M48.061 Spinal stenosis, lumbar region without neurogenic claudication; M70.62 Trochanteric bursitis, left hip; M70.61 Trochanteric bursitis, right hip; Y93.9 Activity, unspecified; M16.12 Unilateral primary osteoarthritis, left hip; M79.605 Pain in left leg; M54.2 Cervicalgia | CPT/HCPCS: 99214 ==

== ENCOUNTER → 2023-02-09 11:02 | Outpatient (BNVA) | payer MEDICARE, MEDICAID, SELFPAY | PROVIDERS: PCP Physician Assistant; Visit Provider Internal Medicine Rheumatology | DX: M54.50 Low back pain, unspecified (principal); M47.896 Other spondylosis, lumbar region; M05.79 Rheumatoid arthritis with rheumatoid factor of multiple sites without organ or systems involvement; Z79.899 Other long term (current) drug therapy; Z71.85 Encounter for immunization safety counseling | CPT/HCPCS: 72100; 99214 ==

== ENCOUNTER → 2023-02-23 13:05 | Outpatient (BNVA) | payer MEDICARE, MEDICAID, SELFPAY | PROVIDERS: PCP Physician Assistant; Referring Provider Physician Assistant; Visit Provider Specialist | DX: Z79.899 Other long term (current) drug therapy (principal); G63 Polyneuropathy in diseases classified elsewhere; A52.16 Charcot's arthropathy (tabetic) | CPT/HCPCS: 82607; 82746; 83036; 83520; 99204 ==

== ENCOUNTER 2023-02-24 08:00 | Oncology outpatient (recurring) (ONCR) | payer MEDICARE, MEDICAID, SELFPAY ==
[2023-01-27] MEDS: acetaminophen 325 mg Tablet 650 MG PO (08:32)
[2023-01-27] MEDS: sodium chloride 0.9% 250 ML 75 ML IV (08:33)
[2023-01-27 08:45] VITALS: BP 140/76; PULSE 74; RESP 18; TEMP 36.3; O2SAT 98
[2023-01-27] MEDS: abatacept 750 MG in sodium chloride 0.9% (100 ml) 100 ML 200 MG IV (09:02)
[2023-01-27 09:15] LABS: Basophils # 0.1 10^3/uL (0.0-0.1); Basophils % 1.3 %; Eosinophils % 0.7 %; Hematocrit 38.1 % (36-47); Lymphocytes # 1.3 10^3/uL (0.8-4.8); Lymphocytes % 24.6 %; Mean Corpuscular HGB Conc 32.8 g/dL (30-55); Mean Corpuscular Hemoglobin 31.9 pg (27-33); Mean Corpuscular Volume 97.2 fl (85-98); Mean Platelet Volume 11.1 fL (7.4-10.4); Monocytes # 0.5 10^3/uL (0.2-0.9); Neutrophils # 3.48 10^3/uL (1.8-7.7); Nucleated Red Blood Cells % 0 %; Platelet Count 178 10^3/cmm (157-399); Red Blood Count 3.92 10^6/uL (3.85-5.65); Red Cell Distribution Width 14.3 % (12.1-15.1); White Blood Count 5.44 10^3/uL (3.29-11.43)
[2023-01-27 09:45] VITALS: BP 124/78; PULSE 84; RESP 18; TEMP 36.6; O2SAT 98
[2023-01-27 10:25] LABS: Alanine Aminotransferase 31 U/L (0-33); Alkaline Phosphatase 124 U/L (35-105); Aspartate Amino Transferase 19 U/L (0-32); C Reactive Protein 6.1 mg/L (0.0-4.9); Globulin 2.5 g/dL (1.3-4.6); Glomerular Filtration Rate 86.2 mL/min (90-130); Total Bilirubin 0.2 mg/dL (0.15-1.2); Total Protein 6.5 g/dL (6.6-8.7)
[2023-02-24 08:10] VITALS: BP 125/77; PULSE 96; RESP 17; TEMP 36.8; O2SAT 99
[2023-02-24] MEDS: sodium chloride 0.9% 250 ML 75 ML IV (08:22)
[2023-02-24] MEDS: diphenhydrAMINE 50 mg/mL SDV 1mL 25 MG IVP (08:23)
[2023-02-24] MEDS: acetaminophen 325 mg Tablet 650 MG PO (08:24)
[2023-02-24] MEDS: abatacept 750 MG in sodium chloride 0.9% (100 ml) 100 ML 200 MG IV (08:51)
[2023-02-24 09:39] VITALS: BP 127/69; PULSE 81; RESP 17; TEMP 36.8; O2SAT 96
== END 2023-02-24 23:59 | disposition home or self-care (01) ==
PROVIDERS: PCP Physician Assistant; Visit Provider Internal Medicine Rheumatology
DX: M05.9 Rheumatoid arthritis with rheumatoid factor, unspecified (principal)
CPT/HCPCS: 80076; 82565; 85025; 86140; 96365; 96375; 96413; J0129; J1200; J7050

== ENCOUNTER → 2023-02-28 12:56 | Outpatient (BNVA) | payer MEDICARE, MEDICAID, SELFPAY | PROVIDERS: PCP Physician Assistant; Visit Provider Anesthesiology Pain Medicine | DX: M54.16 Radiculopathy, lumbar region (principal); M51.36 Other intervertebral disc degeneration, lumbar region; M47.816 Spondylosis without myelopathy or radiculopathy, lumbar region; M62.830 Muscle spasm of back; Z87.19 Personal history of other diseases of the digestive system | CPT/HCPCS: 64483; 64484; J1100; J3490 ==

== ENCOUNTER → 2023-03-14 10:29 | Outpatient (BNVA) | payer MEDICARE, MEDICAID, SELFPAY | PROVIDERS: PCP Physician Assistant; Visit Provider Anesthesiology Pain Medicine | DX: M54.2 Cervicalgia; Z98.890 Other specified postprocedural states; Z87.19 Personal history of other diseases of the digestive system; M62.830 Muscle spasm of back; M51.36 Other intervertebral disc degeneration, lumbar region; M47.816 Spondylosis without myelopathy or radiculopathy, lumbar region; M54.16 Radiculopathy, lumbar region; M20.41 Other hammer toe(s) (acquired), right foot; M16.12 Unilateral primary osteoarthritis, left hip; M79.605 Pain in left leg | CPT/HCPCS: 99214 ==

== ENCOUNTER 2023-03-24 07:43 | Oncology outpatient (recurring) (ONCR) | payer MEDICARE, MEDICAID, SELFPAY ==
[2023-03-24 07:47] VITALS: BP 138/79; PULSE 105; RESP 18; TEMP 36.4; O2SAT 99
[2023-03-24 07:50] VITALS: BMI 35.4
[2023-03-24] MEDS: acetaminophen 325 mg Tablet 650 MG PO (08:13)
[2023-03-24] MEDS: sodium chloride 0.9% 250 ML 75 ML IV (08:14)
[2023-03-24] MEDS: diphenhydrAMINE 50 mg/mL SDV 1mL 25 MG IVP (08:17)
[2023-03-24] MEDS: abatacept 750 MG in sodium chloride 0.9% (100 ml) 100 ML 200 MG IV (08:50)
[2023-03-24 09:47] VITALS: BP 102/68; PULSE 92; RESP 16; O2SAT 94
== END 2023-03-27 23:59 | disposition home or self-care (01) ==
PROVIDERS: PCP Physician Assistant; Visit Provider Internal Medicine Rheumatology
DX: M05.89 Other rheumatoid arthritis with rheumatoid factor of multiple sites; Z53.9 Procedure and treatment not carried out, unspecified reason
CPT/HCPCS: 96365; J0129; J1200; J7050

== ENCOUNTER 2023-04-21 07:41 | Oncology outpatient (recurring) (ONCR) | payer MEDICARE, MEDICAID, SELFPAY ==
[2023-04-21] MEDS: sodium chloride 0.9% 250 ML 75 ML IV (08:38)
[2023-04-21] MEDS: diphenhydrAMINE 50 mg/mL SDV 1mL 25 MG IVP (08:38)
[2023-04-21] MEDS: acetaminophen 325 mg Tablet 650 MG PO (08:40)
[2023-04-21] MEDS: abatacept 750 MG in sodium chloride 0.9% (100 ml) 100 ML 200 MG IV (09:05)
[2023-04-21 09:56] VITALS: BP 126/73; PULSE 87; RESP 18; TEMP 36.2; O2SAT 95
== END 2023-04-27 23:59 | disposition home or self-care (01) ==
PROVIDERS: PCP Physician Assistant; Visit Provider Internal Medicine Rheumatology
DX: M05.89 Other rheumatoid arthritis with rheumatoid factor of multiple sites
CPT/HCPCS: 96365; 96375; J0129; J1200; J7050

== ENCOUNTER → 2023-05-12 11:46 | Outpatient (BNVA) | payer MEDICARE, MEDICAID, SELFPAY | PROVIDERS: PCP Physician Assistant; Visit Provider Anesthesiology Pain Medicine | DX: M19.011 Primary osteoarthritis, right shoulder (principal); M54.2 Cervicalgia; Z98.890 Other specified postprocedural states; Z87.19 Personal history of other diseases of the digestive system; M62.830 Muscle spasm of back; M51.36 Other intervertebral disc degeneration, lumbar region; M47.816 Spondylosis without myelopathy or radiculopathy, lumbar region; M54.16 Radiculopathy, lumbar region; M20.41 Other hammer toe(s) (acquired), right foot; M25.561 Pain in right knee; M25.562 Pain in left knee; M25.552 Pain in left hip | CPT/HCPCS: 73030; 99214 ==

== ENCOUNTER → 2023-05-24 13:41 | Outpatient (BNVA) | payer MEDICARE, MEDICAID, SELFPAY | PROVIDERS: PCP Physician Assistant; Visit Provider Anesthesiology Pain Medicine | DX: M54.16 Radiculopathy, lumbar region (principal); M54.9 Dorsalgia, unspecified | CPT/HCPCS: 64483; J1100; J3490 ==

== ENCOUNTER → 2023-05-25 09:26 | Outpatient (BNVA) | payer MEDICARE, MEDICAID, SELFPAY | PROVIDERS: PCP Physician Assistant; Visit Provider Internal Medicine Rheumatology | DX: M05.79 Rheumatoid arthritis with rheumatoid factor of multiple sites without organ or systems involvement (principal); Z79.899 Other long term (current) drug therapy; Z71.85 Encounter for immunization safety counseling | CPT/HCPCS: 99214 ==

== ENCOUNTER 2023-06-03 12:31 | Outpatient (CLI) | payer MEDICARE, MEDICAID, SELFPAY ==
[2023-06-03 12:59] LABS: Basophils # 0.1 10^3/uL (0.0-0.1); Basophils % 1.4 %; Eosinophils # 0.2 10^3/uL (0.0-0.8); Eosinophils % 3.8 %; Lymphocytes # 1.1 10^3/uL (0.8-4.8); Lymphocytes % 22.6 %; Mean Corpuscular HGB Conc 33.4 g/dL (30-55); Mean Corpuscular Hemoglobin 31.5 pg (27-33); Mean Corpuscular Volume 94.3 fl (85-98); Mean Platelet Volume 10.5 fL (7.4-10.4); Monocytes # 0.6 10^3/uL (0.2-0.9); Monocytes % 12.6 %; Neutrophils # 2.97 10^3/uL (1.8-7.7); Neutrophils % 59.2 %; Nucleated Red Blood Cells % 0 %; Platelet Count 223 10^3/cmm (157-399); Red Blood Count 3.71 10^6/uL (3.85-5.65); Red Cell Distribution Width 13.9 % (12.1-15.1); White Blood Count 5.01 10^3/uL (3.29-11.43)
[2023-06-03 13:20] LABS: Alanine Aminotransferase 44 U/L (0-33); Albumin Level 3.8 g/dL (3.5-5.2); Alkaline Phosphatase 156 U/L (35-105); Aspartate Amino Transferase 27 U/L (0-32); C Reactive Protein 7.3 mg/L (0.0-4.9); Globulin 2.7 g/dL (1.3-4.6); Glomerular Filtration Rate 73.7 mL/min (90-130); Total Bilirubin 0.2 mg/dL (0.15-1.2); Total Protein 6.5 g/dL (6.6-8.7)
== END 2023-06-03 12:32 | disposition home or self-care (01) ==
LOC: LAB 12:33
PROVIDERS: PCP Physician Assistant; Visit Provider Internal Medicine Rheumatology
DX: Z79.899 Other long term (current) drug therapy (principal); M05.79 Rheumatoid arthritis with rheumatoid factor of multiple sites without organ or systems involvement
CPT/HCPCS: 36415; 80076; 82565; 85025; 86140

== ENCOUNTER 2023-06-14 08:11 | Oncology outpatient (recurring) (ONCR) | payer MEDICARE, MEDICAID, SELFPAY ==
[2023-06-14 08:14] VITALS: BP 133/77; PULSE 97; RESP 16; TEMP 36.6; O2SAT 96
[2023-06-14] MEDS: diphenhydrAMINE 50 mg/mL SDV 1mL 25 MG IVP (10:58)
[2023-06-14] MEDS: sodium chloride 0.9% 250 ML 75 ML IV (10:58)
[2023-06-14] MEDS: acetaminophen 325 mg Tablet 650 MG PO (10:58)
[2023-06-14] MEDS: abatacept 750 MG in sodium chloride 0.9% (100 ml) 100 ML 200 MG IV (11:18)
[2023-06-14 12:00] VITALS: BP 120/78; PULSE 75; RESP 18; TEMP 36.6; O2SAT 98
== END 2023-06-26 23:59 | disposition home or self-care (01) ==
PROVIDERS: PCP Physician Assistant; Visit Provider Internal Medicine Rheumatology
DX: M05.89 Other rheumatoid arthritis with rheumatoid factor of multiple sites (principal); Z53.9 Procedure and treatment not carried out, unspecified reason
CPT/HCPCS: 96367; 96413; J0129; J1200; J7050

== ENCOUNTER → 2023-06-21 08:41 | Outpatient (BNVA) | payer MEDICARE, MEDICAID, SELFPAY | PROVIDERS: PCP Physician Assistant; Visit Provider Anesthesiology Pain Medicine | DX: M54.2 Cervicalgia; Z98.890 Other specified postprocedural states; Z87.19 Personal history of other diseases of the digestive system; M62.830 Muscle spasm of back; M51.36 Other intervertebral disc degeneration, lumbar region; M47.816 Spondylosis without myelopathy or radiculopathy, lumbar region; M54.16 Radiculopathy, lumbar region; M20.41 Other hammer toe(s) (acquired), right foot; M25.552 Pain in left hip; M79.605 Pain in left leg; M70.62 Trochanteric bursitis, left hip; M70.61 Trochanteric bursitis, right hip; Y93.9 Activity, unspecified; M25.569 Pain in unspecified knee | CPT/HCPCS: 99214 ==

== ENCOUNTER 2023-07-12 08:30 | Oncology outpatient (recurring) (ONCR) | payer MEDICARE, MEDICAID, SELFPAY ==
[2023-07-12] VITALS (9 sets, daily range): BP systolic 100–124; BP diastolic 69–76; PULSE 70–95; RESP 16–18; TEMP 36.4–36.7; O2SAT 88–100
[2023-07-12] MEDS: diphenhydrAMINE 50 mg/mL SDV 1mL 25 MG IVP ×2 (08:54→10:44)
[2023-07-12] MEDS: acetaminophen 325 mg Tablet 650 MG PO (08:54)
[2023-07-12] MEDS: sodium chloride 0.9% 250 ML 75 ML IV (08:54)
[2023-07-12] MEDS: abatacept 750 MG in sodium chloride 0.9% (100 ml) 100 ML 200 MG IV (09:20)
[2023-07-12] MEDS: ipratropium-albuterol 3 mL Neb INHALATION (10:30)
[2023-07-12] MEDS: methylPREDNISolone sod succ 40 mg/mL INJ IVP ×2 (10:47→11:28)
[2023-07-12] MEDS: famotidine 20 mg/2 mL INJ IVP (10:48)
== END 2023-07-26 23:59 | disposition home or self-care (01) ==
LOC: ONCMED 08:30
PROVIDERS: PCP Physician Assistant; Visit Provider Internal Medicine Rheumatology
DX: M05.89 Other rheumatoid arthritis with rheumatoid factor of multiple sites (principal)
CPT/HCPCS: 96365; 96375; 96376; A4222; J0129; J1200; J2919; J3490; J7050

== ENCOUNTER 2023-07-27 11:15 | Outpatient (RCR) | payer MEDICARE, MEDICAID, SELFPAY | END 2023-08-26 23:59 | disposition home or self-care (01) | LOC: SPT 11:15 | PROVIDERS: PCP Physician Assistant; Visit Provider Anesthesiology Pain Medicine | DX: M25.511 Pain in right shoulder (principal) | CPT/HCPCS: 97161 ==

== ENCOUNTER → 2023-09-15 10:54 | Outpatient (BNVA) | payer MEDICARE, MEDICAID, SELFPAY | PROVIDERS: PCP Physician Assistant; Visit Provider Anesthesiology Pain Medicine | DX: M54.2 Cervicalgia; Z98.890 Other specified postprocedural states; Z87.19 Personal history of other diseases of the digestive system; M62.830 Muscle spasm of back; M51.36 Other intervertebral disc degeneration, lumbar region; M47.816 Spondylosis without myelopathy or radiculopathy, lumbar region; M54.16 Radiculopathy, lumbar region; M20.41 Other hammer toe(s) (acquired), right foot; M25.562 Pain in left knee; M25.552 Pain in left hip | CPT/HCPCS: 99214 ==

== ENCOUNTER → 2023-10-18 15:07 | Outpatient (BNVA) | payer MEDICARE, MEDICAID, SELFPAY | PROVIDERS: PCP Physician Assistant; Visit Provider Podiatrist Foot & Ankle Surgery | DX: M20.41 Other hammer toe(s) (acquired), right foot (principal); M25.871 Other specified joint disorders, right ankle and foot; M21.611 Bunion of right foot | CPT/HCPCS: 99214 ==

== ENCOUNTER → 2023-10-26 08:54 | Outpatient (BNVA) | payer MEDICARE, MEDICAID, SELFPAY | PROVIDERS: PCP Physician Assistant; Visit Provider Internal Medicine Rheumatology | DX: M05.79 Rheumatoid arthritis with rheumatoid factor of multiple sites without organ or systems involvement (principal); Z79.899 Other long term (current) drug therapy; Z71.85 Encounter for immunization safety counseling; Z11.1 Encounter for screening for respiratory tuberculosis; Z11.59 Encounter for screening for other viral diseases | CPT/HCPCS: 36415; 80076; 82565; 85025; 85651; 86140; 99214 ==

== ENCOUNTER 2023-11-04 08:43 | Day surgery (SDC) | payer MEDICARE, MEDICAID, SELFPAY ==
[2023-11-04] VITALS (10 sets, daily range): BP systolic 109–144; BP diastolic 68–82; PULSE 86–102; RESP 14–20; TEMP 36.4–36.6; O2SAT 88–96; BMI 33.1
--- NOTE | 2023-11-04 | XR_ITS ---
WS: [id number] Examination: XR foot RT 2V [id number] Reason for Exam: MIGUEL ANGEL PICS Date: November 04, 2023 Comparison: May 18, 2022 Findings: 2 intraoperative images have been obtained. Plate and screw fixation of the first metatarsal phalangeal joint is identified. Surgical changes to the second digit are noted as well with screw fixation across the joint spaces. Screws are noted in t he head of the second metatarsal. Please see intraoperative note for full explanation of the findings and the procedure.
[2023-11-04] MEDS: CELEcoxib 200 mg Capsule 400 MG PO (09:23)
[2023-11-04] MEDS: sodium chloride 0.9% 1,000 ML 30 ML IV (09:27)
--- NOTE | 2023-11-04 10:38 | ANES.PREANE2 ---
Pre-Anesthetic Assessment Height/Weight: Height 1.6 m Weight 84.822 kg Temp Pulse Resp BP Pulse Ox O2 Del Method 97.6 F 86 18 116/75 96 Room Air 11/04/23 09:05 11/04/23 09:05 11/04/23 09:05 11/04/23 09:05 11/04/23 09:05 11/04/23 09:05 Preop Diagnosis: Right bunion and hammertoe Operation Date: 11/04/23 10:30 Proposed Procedures p Right first metatarsal phalangeal joint fusion(Right) - JR Henry Ti Osteotomy Right second metatarsal(Right) - JR Henry Right second hammertoe correction(Right) - JR Henry Tendon Transfer Foot(Right) - Jermaine Ordaz DPM Familial anesthetic complications: none Was Beta Devorah taken within 24 hours: N/A Was Clonidine taken within 24 hours: N/A Last intake: Intake Last Liquid Date 11/04/23 Last Liquid Time 05:00 Last Solid Date 11/03/23 Last Solid Time 18:30 Social No alcohol and No tobacco Exam alert, oriented x 3, clear to auscultation bilaterally and regular rate & rhythm Airway Mallampati: Class III Dentition: false Comments: Comments: small mouthopening Pulmonary Sleep Apnea GI Gastroesophageal Reflux Disease Metabolic Hyperlipidemia and Thyroid Disease [facility] Rheumatoid Arthritis Anesthetic Plan ASA status: 3 Anesthesia: General Risk of > 500 ml blood loss (7ml/kg in children): No Medications/Allergies Home Medications Medication Instructions Recorded Confirmed Last Taken Type atorvastatin 40 mg tablet (Lipitor) 40 mg PO DAILY 04/08/20 11/03/23 11/03/23 History bupropion HCl 150 mg tablet,12 hr 150 mg PO BID 04/08/20 11/03/23 11/03/23 History sustained-release (Wellbutrin SR) albuterol sulfate 90 mcg/actuation 2 puff inhalation Q4H PRN 12/15/20 11/03/23 05/19/21 History aerosol inhaler (ProAir HFA) Shortness Of Breath fluticasone propionate 50 2 spray intranasal DAILY 12/15/20 11/03/23 11/03/23 History mcg/actuation nasal spray,suspension pilocarpine HCl 5 mg tablet 5 mg PO TID 12/15/20 11/03/23 11/03/23 History ropinirole 2 mg tablet 2 mg PO BEDTIME 12/15/20 11/03/23 11/02/23 History aripiprazole 2 mg tablet (Abilify) 2 mg PO DAILY 02/10/21 11/03/23 11/03/23 History umeclidinium 62.5 mcg-vilanterol 1 inh inhalation DAILY 05/19/21 11/03/23 11/03/23 History 25 mcg/actuation powdr for inhalation (Anoro Ellipta) amitriptyline 25 mg tablet 25 mg PO .hs 07/27/21 11/03/23 11/02/23 History lorazepam 0.5 mg tablet (Ativan) 0.5 mg PO DAILY PRN anxiety #1 tab 01/21/22 11/04/23 11/04/23 Rx lorazepam 0.5 mg tablet (Ativan) 0.5 mg PO DAILY PRN anxiety #1 tab 03/15/22 11/03/23 Unknown Rx gabapentin 600 mg tablet 600 mg PO TID #90 tabs 08/02/22 11/03/23 11/03/23 Rx folic acid 1 mg tablet See Rx Instructions .Route 05/25/23 11/03/23 11/03/23 Rx .COMPLEX #90 tabs pantoprazole 40 mg tablet,delayed See Rx Instructions .Route 10/24/23 11/03/23 11/04/23 Rx release .COMPLEX #90 tabs prednisone 20 mg tablet See Rx Instructions PO .COMPLEX 10/24/23 11/03/23 Unknown Rx PRN joint pain flare #30 tabs Magic Mouthwas See Rx Instructions .Route 10/26/23 11/03/23 Unknown Rx .COMPLEX #4 oz etanercept 50 mg/mL (1 mL) 50 mg SUBCUT Q7D #4 mL 10/26/23 11/03/23 10/27/23 Rx subcutaneous syringe (Enbrel) leflunomide 10 mg tablet 10 mg PO DAILY #90 tabs 10/26/23 11/03/23 11/03/23 Rx sulfasalazine 500 mg tablet See Rx Instructions .Route 10/26/23 11/03/23 11/03/23 Rx .COMPLEX #180 tabs Allergies Allergy/AdvReac Type Severity Reaction Status Date / Time abatacept Allergy Intermediate rash, Verified 11/03/23 11:41 [From Orencia (with maltose)] hypoxia amoxicillin [From Augmentin] Allergy Intermediate Swelling Verified 11/03/23 11:41 from face down to neck clavulanic acid Allergy Intermediate Swelling Verified 11/03/23 11:41 [From Augmentin] from face down to neck maltose Allergy Intermediate rash Verified 11/03/23 11:41 [From Orencia (with maltose)] Current Medications Generic Name Dose Route Start Last Admin Trade Name Freq PRN Reason Stop Dose Admin Sodium Chloride 1,000 mls @ 30 mls/hr 11/04/23 09:00 11/04/23 09:27 Sodium Chloride 0.9% IV 11/05/23 08:59 30 mls/hr .Q24H FEDERICO Administration PFSH Anesthesia Medical History Immunization counseling High risk medication use Seropositive rheumatoid arthritis of multiple sites FHx: throat cancer delivery delivered Hypertension Hypercholesteremia Umbilical hernia surgery 2014 Fibromyalgia Surgical History H/O: hysterectomy History of delivery x3 Previous back surgery 03/30/2021 Family History Mother Cancer cervial COPD (chronic obstructive pulmonary disease) Father COPD (chronic obstructive pulmonary disease) Hypertension Diabetes Brother Diabetes one brother is insulin dependent and another brother that is not insulin dependent Sister Factor 5 Leiden mutation, heterozygous Sister Diabetes Non insulin dependent Other Hyperlipidemia Denies family history of Rheumatoid arthritis Lupus Chronic kidney disease (CKD) Family history of premature coronary artery disease Stroke Social History Smoking and tobacco/nicotine status: never used tobacco/nicotine Second hand smoke exposure: Yes Alcohol intake: former Substance/Drug Use: never Data Anesthesia Cardiac Studies: Cardiac Event Monitor 02/03/22
[2023-11-04] MEDS: vancomycin 1,000 MG in sodium chloride 0.9% 250 ML 250 MG IV (10:40)
--- NOTE | 2023-11-04 11:14 | W.PM.OPSUD ---
Surgery/Procedure H&P Update DATE OF PROCEDURE: November 04, 2023 DATE H&P PERFORMED: 10/18/23 H&P UPDATE INFORMATION: I have reviewed H&P completed within last 30 days, I have examined patient prior to procedure, No changes to prior documentation and H&P is in [facility] EMR on date indicated PREOP DIAGNOSIS: Right bunion and hammertoe PLANNED PROCEDURE: Operation Date: 11/04/23 10:30 Proposed Procedures p Right first metatarsal phalangeal joint fusion(Right) - JR Henry Ti Osteotomy Right second metatarsal(Right) - JR Henry Right second hammertoe correction(Right) - JR Henry Tendon Transfer Foot(Right) - Jermaine Ordaz DPM
[2023-11-04] MEDS: BUPivacaine liposome 13.3 mg/mL SDV 20 mL 266 MG INFILTRATI (11:55)
[2023-11-04] MEDS: BUPivacaine 0.5% INJ 30 mL 20 ML INJECTION (11:55)
--- NOTE | 2023-11-04 13:10 | W.PM.BPON ---
Date of Procedure: 06/10/23 Surgeon: Jermaine Ordaz DPM Mechanical Energy Engineer(s): ANN Sykes Procedure(s) performed: Right first metatarsal phalangeal joint fusion, right Ti Osteotomy, right foot deep tendon transfer, right second hammertoe correction Findings of the procedure(s): None Estimated blood loss: 2 mL Specimen(s) removed: No specimens Post-operative diagnosis: Right hallux abductovalgus/bunion deformity, right metatarsalgia, right second hammertoe deformity, right foot pain, right foot contracture. No complications with anesthesia or surgery. General anesthetic, gurney, supine, tourniquet time at right ankle 53 minutes.
--- NOTE | 2023-11-04 13:13 | P.OP_ITS ---
Operative Report Date of procedure: November 04, 2023 Pre-op diagnosis: Hammer toe of second toe of right foot M20.41 Predislocation syndrome of metatarsophalangeal joint of right foot M25.871 Bunion, right foot M21.611 Rheumatoid arthritis right foot M05.471 Contracture right foot M24.574 Post-op diagnosis: Hammer toe of second toe of right foot M20.41 Predislocation syndrome of metatarsophalangeal joint of right foot M25.871 Bunion, right foot M21.611 Rheumatoid arthritis right foot M05.471 Contracture right foot M24.574 Procedure done: 1) right first metatarsal phalangeal joint fusion. CPT code 50175 2) Ti osteotomy second metatarsal. CPT code 91375 3) right second hammertoe correction. CPT code 93594 4) deep tendon transfer right foot. CPT code 47392 Implants: First MTP plate by [employer] with 2.7 and 3.5 mm locking screws, Ti snap off screws by [employer] 13 mm and 12 mm in length, 2 mm screw intramedullary placement and second toe for hammertoe correction, 3-0 Vicryl, 4-0 Vicryl, 4-0 nylon Specimens removed/disposition: None Pathology: None Surgeon: Jermaine Ordaz DPM Banding Machine Operator: Mony JUAREZ Estimated blood loss: 2 53 IV fluids: See intraoperative documentation Urine output: None Complications: Known Brief History: 58 year old female patient presenting to clinic for surgical discussion to right. Patient has painful bunion, hammertoe and pre-dislocation syndrome to right foot. She has been utilizing blister toe band-aids to the right second, wider shoes and daily stretching. Patient states that her right second is wanting to over-ride her right great toe. She states that she is experiencing pain everyday and all day. She also states that pain is effecting her everyday life. Padding and spacing no longer is alleviating her pain. Wide accommodative shoes, active modifications and anti-inflammatories no longer helpful. Given underlying rheumatological disease recommended first metatarsophalangeal arthrodesis, Ti osteotomy of the second metatarsal, plantar plate repair and deep tendon transfer right foot with right second hammertoe correction. I reviewed at length with the patient, the risks, potential complications, benefits, alternatives, expectations, and typical outcomes associated with the surgery. The risks and potential complications were explained in detail, including but not limited to infection, wound dehiscence or soft tissue complications, bleeding and hematoma, chronic edema, neuritis or nerve damage producing numbness or chronic pain, CRPS, failure to relieve pain or worsening pain, thick / painful / unsightly scar, limited motion / stiffness, malposition, delayed union, malunion, or nonunion, fracture, reaction to implants, anesthetic complications, venous thromboembolism, and deformity recurrence. I discussed the notion of no regrets with the patient as it pertains to complications and outcomes. The patient seemed to understand the nature of the proposed care and required convalescence. They asked appropriate questions, answered to their satisfaction. They are aware no guarantees can be made as to a satisfactory outcome and they understand there may be other possible unforeseen complications or outcomes not listed here that will be treated accordingly if they arise. There were no written or implied guarantees given to the patient. They gave informed consent to proceed. Will collaborate with her machine ceramic coater in regards to holding her disease modifying medications. X-ray right foot AP, oblique and lateral views dated 05/18/2022 demonstrates hallux valgus, increased first metatarsal angle and gunbarrel sign of the second toe indicating sagittal plane dominant hammertoe. Hallux noted to be an abducted position. Tibial sesamoid position: 4. 1 - 2 IM angle is 13 degrees. True IM angle with met adductus 18 degrees Hallux abductus angle is 40 degrees. Metatarsal adductus angle is 5 degrees. Sieberg index of 2 mm. Of note patient has underlying rheumatological disease she sees rheumatology for this. Her right foot bunion pain is felt to be alleviated by [id number] NSAIDs including Tylenol and ibuprofen she has failed this for greater than 6 weeks. Patient has seropositive rheumatoid arthritis of multiple sites including her feet. She currently takes prednisone, gabapentin and hydrocodone as well as meloxicam and sulfasalazine and still has pain daily with everyday activities such as standing and walking from her right bunion and right second hammertoe. She has failed to receive relief with bunion spacer and hammertoe spacer, has failed to receive relief utilizing padding and wide accommodative EXTR with shoes with mesh vamp. At home physical therapy consisting of activity modifications, stretching, supportive shoes and sfxk-flk-xkozdgf orthotics have also failed to offer her relief. Procedure: Under mild sedation patient was brought to the operating room and remained on the gurney in supine position. A timeout was performed. Anesthesia was then administered by the anesthesia service. Local anesthesia injected by myself consisting of 30 cc of 0.5% Marcaine plain and a right male block and second ray block fashion. Additional 20 cc of Exparel infiltrated subcutaneously proximal to the operative site in a grid like fashion. Well-padded pneumatic tourniquet applied to the right ankle. Right lower extremity was scrubbed, prepped and draped utilizing normal aseptic technique. Right foot and ankle were exanguinated with an Esmarch bandage and tourniquet inflated to 250 mmHg. Attention was directed to the dorsal medial aspect of the right first metatarsal phalangeal joint where a dorsal medial incision was made medial and parallel to the extensor hallucis longus tendon through skin with a #15 blade with dissection carried down through subcutaneous tissue to the layer periosteum utilizing sharp and blunt technique. Care was taken to retract and preserve neurovascular and tendinous structures. All bleeders were ligated and cauterized as necessary. Linear capsulotomy was performed in the base of the proximal phalanx and head of the first metatarsal where prepped for arthrodesis utilizing cone and cup reamers incision was irrigated with saline solution and subchondral drill bit with 2 mm fenestrating drill bit was utilized to further prep arthrodesis at the base of the proximal phalanx and head of the first metatarsal the left first metatarsal phalangeal joint. Left first metatarsophalangeal joint was held in slight dorsiflexion, neutral frontal plane and slight valgus and fixated with a dorsal locking plate with 2.7 mm locking screws x 3 distally and 3.5 millimeter screws proximally with excellent bony apposition and compression noted. The incision was irrigated with copious amounts of sterile saline solution and closed in a layered fashion with joint capsule reapproximated with 3-0 Vicryl, subcutaneous tissue with 4-0 Vicryl and skin with 4-0 nylon. Attention was directed to the left second toe where a skin incision was performed over the proximal interphalangeal joint with a #15 blade. Dissection was carried down to the proximal interphalangeal joint transecting the extensor digitorum longus and brevis these were tagged and retracted for repair later in the surgery. Head of the proximal phalanx and base of the intermediate phalanx were resected and dissection was carried down to the flexor digitorum longus tendon which was transected transversely at its most distal margin and then split longitudinally in a hemisection fashion this was wrapped both medially and laterally and effectively transferred dorsally and secured with 4-0 nylon nonabsorbable to help address sagittal component contracture of the right foot second toe. Attention was then directed to the proximal interphalangeal joint of the right second toe where irrigation was performed followed by subchondral drilling of the head of the proximal phalanx and base of the intermediate phalanx next a guidewire was inserted at the base of the intermediate phalanx and antegrade out the distal aspect of the right second toe and then retrograded proximally not crossing the proximal phalanx base or second metatarsal phalangeal joint next utilizing standard AO technique a 2 mm [employer] screw was advanced from distal to proximal intramedullary placement within the distal at the right, intermediate and proximal phalanx with excellent bony apposition and compression noted at the right second hammertoe arthrodesis site. Incision was irrigated with saline solution, extensor tendon was reapproximated with 4-0 Vicryl and skin closed with 4-0 nylon at the dorsal aspect of the right second toe. Attention was then directed to the right second metatarsal phalangeal joint where the head of the second metatarsal was palpated, curvilinear incision was performed over the right second metatarsal plantar joint dorsally through skin with #15 blade with dissection carried down to the head of the second metatarsal utilizing sharp and blunt technique. Care was taken to retract and preserve neurovascular and tendon structures. All bleeders were ligated and cauterized as necessary. Ti Osteotomy oriented from dorsal distal to plantar proximal was performed with the osteotomy parallel to the weightbearing surface of the foot the second metatarsal was shifted proximally approximately 2 to 3 mm and fixated utilizing snap off screws by [employer] x 2 with excellent bony apposition and compression noted. After second metatarsal osteotomy is performed for corrective shortening the incision was irrigated with saline solution and closed in a layered fashion, deep tissue reapproximated with 4-0 Vicryl and skin with 4-0 nylon. All incisions were dressed with Adaptic, sterile 4 x 4's, Kerlix and Harris wrap followed by application of a well-padded multilayer compressive posterior splint with ankle joint in neutral position. Tourniquet was then deflated and a prompt hyperemic response is noted to the distal digits of the right foot. Patient tolerated the procedure and anesthesia well and was transferred to the PACU with vital signs stable and vascular status intact. Following a period of postoperative monitoring to be discharged home may be protected partial weightbearing, elevate right foot while resting. Advised 81 mg aspirin to be taken starting morning after surgery to help potentially reduce risks of deep vein thrombosis. Was given at home care instructions and scheduled follow-up as well as myself number to contact me with any postoperative questions or concerns.
--- NOTE | 2023-11-04 13:14 | PM.OPSURHP ---
Providers/Chief Complaint Primary Care Provider: Deloris Davey Chief Complaint: M20.41, M25.871, M21.611, M05.471, M24.574 History of Present Illness Sherrie Wilson is a 58 year old female of note patient has underlying rheumatological disease she sees rheumatology for this. Her right foot bunion pain is felt to be alleviated by rzvl-wbl-uhmipoa NSAIDs including Tylenol and ibuprofen she has failed this for greater than 6 weeks. Patient has seropositive rheumatoid arthritis of multiple sites including her feet. She currently takes prednisone, gabapentin and hydrocodone as well as meloxicam and sulfasalazine and still has pain daily with everyday activities such as standing and walking from her right bunion and right second hammertoe. She has failed to receive relief with bunion spacer and hammertoe spacer, has failed to receive relief utilizing padding and wide accommodative EXTR with shoes with mesh vamp. At home physical therapy consisting of activity modifications, stretching, supportive shoes and zbqw-xsl-wbtubek orthotics have also failed to offer her relief. Patient has pre-dislocation syndrome to right second. She also has a hammertoe to right second. She has been utilizing blister toe band-aids to the right second, wider shoes and daily stretching. Patient states that her right second is wanting to over-ride her right great toe. She states that she is experiencing pain everyday and all day. She also states that pain is effecting her everyday life. Review of Systems General: Reports: 10 or more systems reviewed and unremarkable except in HPI and below Const: Denies: fever(s) or chills Eyes: Denies: change in vision Card: Denies: chest pain or palpitations Resp: Denies: dyspnea or productive cough GI: Denies: abdominal pain, nausea or vomiting : Denies: flank pain Musc: Reports: extremity pain, joint pain, joint stiffness, limited range of motion and deformity Skin/Breast: Reports: skin tenderness; Denies: rash Neuro: Reports: difficulty walking; Denies: numbness in extremities, sensory changes or frequent falls Psych: Denies: suicidal ideation Saturnino/Lymph: Denies: easy bruising Medications/Allergies Home Medications Medication Instructions Recorded Confirmed Last Taken Type atorvastatin 40 mg tablet (Lipitor) 40 mg PO DAILY 04/08/20 11/03/23 11/03/23 History bupropion HCl 150 mg tablet,12 hr 150 mg PO BID 04/08/20 11/03/23 11/03/23 History sustained-release (Wellbutrin SR) albuterol sulfate 90 mcg/actuation 2 puff inhalation Q4H PRN 12/15/20 11/03/23 05/19/21 History aerosol inhaler (ProAir HFA) Shortness Of Breath fluticasone propionate 50 2 spray intranasal DAILY 12/15/20 11/03/23 11/03/23 History mcg/actuation nasal spray,suspension pilocarpine HCl 5 mg tablet 5 mg PO TID 12/15/20 11/03/23 11/03/23 History ropinirole 2 mg tablet 2 mg PO BEDTIME 12/15/20 11/03/23 11/02/23 History aripiprazole 2 mg tablet (Abilify) 2 mg PO DAILY 02/10/21 11/03/23 11/03/23 History umeclidinium 62.5 mcg-vilanterol 1 inh inhalation DAILY 05/19/21 11/03/23 11/03/23 History 25 mcg/actuation powdr for inhalation (Anoro Ellipta) amitriptyline 25 mg tablet 25 mg PO .hs 07/27/21 11/03/23 11/02/23 History lorazepam 0.5 mg tablet (Ativan) 0.5 mg PO DAILY PRN anxiety #1 tab 01/21/22 11/04/23 11/04/23 Rx lorazepam 0.5 mg tablet (Ativan) 0.5 mg PO DAILY PRN anxiety #1 tab 03/15/22 11/03/23 Unknown Rx gabapentin 600 mg tablet 600 mg PO TID #90 tabs 08/02/22 11/03/23 11/03/23 Rx folic acid 1 mg tablet See Rx Instructions .Route 05/25/23 11/03/23 11/03/23 Rx .COMPLEX #90 tabs pantoprazole 40 mg tablet,delayed See Rx Instructions .Route 10/24/23 11/03/23 11/04/23 Rx release .COMPLEX #90 tabs prednisone 20 mg tablet See Rx Instructions PO .COMPLEX 10/24/23 11/03/23 Unknown Rx PRN joint pain flare #30 tabs Magic Mouthwas See Rx Instructions .Route 10/26/23 11/03/23 Unknown Rx .COMPLEX #4 oz etanercept 50 mg/mL (1 mL) 50 mg SUBCUT Q7D #4 mL 10/26/23 11/03/23 10/27/23 Rx subcutaneous syringe (Enbrel) leflunomide 10 mg tablet 10 mg PO DAILY #90 tabs 10/26/23 11/03/23 11/03/23 Rx sulfasalazine 500 mg tablet See Rx Instructions .Route 10/26/23 11/03/23 11/03/23 Rx .COMPLEX #180 tabs Allergies Allergy/AdvReac Type Severity Reaction Status Date / Time abatacept Allergy Intermediate rash, Verified 11/03/23 11:41 [From Orencia (with maltose)] hypoxia amoxicillin [From Augmentin] Allergy Intermediate Swelling Verified 11/03/23 11:41 from face down to neck clavulanic acid Allergy Intermediate Swelling Verified 11/03/23 11:41 [From Augmentin] from face down to neck maltose Allergy Intermediate rash Verified 11/03/23 11:41 [From Orencia (with maltose)] PFSH PFSH: Medical History Immunization counseling High risk medication use Seropositive rheumatoid arthritis of multiple sites FHx: throat cancer delivery delivered Hypertension Hypercholesteremia Umbilical hernia surgery 2014 Fibromyalgia Surgical History H/O: hysterectomy History of delivery x3 Previous back surgery 03/30/2021 Family History Mother Cancer cervial COPD (chronic obstructive pulmonary disease) Father COPD (chronic obstructive pulmonary disease) Hypertension Diabetes Brother Diabetes one brother is insulin dependent and another brother that is not insulin dependent Sister Factor 5 Leiden mutation, heterozygous Sister Diabetes Non insulin dependent Other Hyperlipidemia Denies family history of Rheumatoid arthritis Lupus Chronic kidney disease (CKD) Family history of premature coronary artery disease Stroke Social History Smoking and tobacco/nicotine status: never used tobacco/nicotine Second hand smoke exposure: Yes Alcohol intake: former Substance/Drug Use: never Dietary Habits: Caffeine: Yes Caffeine intake frequency: carbonated beverages, coffee and tea Vital Signs Vitals Signs: Last Vital Signs Temp 97.6 F 11/04/23 09:05 Pulse 86 11/04/23 09:05 Resp 18 11/04/23 09:05 BP 116/75 11/04/23 09:05 Pulse Ox 96 11/04/23 09:05 O2 Del Method Room Air 11/04/23 09:05 Weight: Weight last 48 hrs Weight 187 lb Physical Exam Narrative: EXAM NARRATIVE: Patient is alert and oriented ?3 and in no acute distress. The following is a focused bilateral lower extremity exam. VASCULAR: Dorsalis pedis and posterior tibial arteries palpable +2. Capillary refill time less than 3 seconds to the distal hallux bilaterally. Calf is supple and nontender proximally and distally. No pedal edema appreciated. Pedal hair growth present. NEUROLOGICAL: Epicritic and protopathic sensations grossly intact to the lower extremities. +2 Achilles tendon reflex noted bilaterally. Negative Tinel sign upon percussion of lower extremity nerves. DERMATOLOGICAL: Lower extremity skin is well-hydrated, normal texture and turgor. There are no open sores or lesions noted to the lower extremities. No erythema or ecchymosis present to the bilateral legs and feet. MUSCULOSKELETAL: Pain to palpation at right second and third hammertoe contracture. Hammertoe contracture of the right second and third toes are sagittal plane dominant. Predislocation syndrome to the right second toe. Pain to palpation right bunion deformity, right hallux is semitruck bound. Muscle strength +5 in all 3 planes right foot and ankle. Multiplane contracture of the second toe deviating medially and frontal plane rotation. CARDIOVASCULAR: S1, S2, normal rate, normal rhythm. Dorsalis pedis and posterior tibial arteries palpable. LUNGS: Clear to auscltation, no use of acessory muscles, no crackles or wheezes. A&P Assessment and plan (1) Contracture, right foot: (2) Bunion, right: (3) Right foot pain: (4) Hammertoe of second toe of right foot: (5) Metatarsalgia, right foot: Plan X-ray right foot AP, oblique and lateral views dated 05/18/2022 demonstrates hallux valgus, increased first metatarsal angle and gunbarrel sign of the second toe indicating sagittal plane dominant hammertoe. Hallux noted to be an abducted position. Tibial sesamoid position: 4. 1 - 2 IM angle is 13 degrees. True IM angle with met adductus 18 degrees Hallux abductus angle is 40 degrees. Metatarsal adductus angle is 5 degrees. Sieberg index of 2 mm. Of note patient has underlying rheumatological disease she sees rheumatology for this. Her right foot bunion pain is felt to be alleviated by zxqy-trz-eoaciqn NSAIDs including Tylenol and ibuprofen she has failed this for greater than 6 weeks. Patient has seropositive rheumatoid arthritis of multiple sites including her feet. She currently takes prednisone, gabapentin and hydrocodone as well as meloxicam and sulfasalazine and still has pain daily with everyday activities such as standing and walking from her right bunion and right second hammertoe. She has failed to receive relief with bunion spacer and hammertoe spacer, has failed to receive relief utilizing padding and wide accommodative EXTR with shoes with mesh vamp. At home physical therapy consisting of activity modifications, stretching, supportive shoes and owwz-pmr-grmzjeb orthotics have also failed to offer her relief. Patient has painful bunion, hammertoe and pre-dislocation syndrome to right foot. She has been utilizing blister toe band-aids to the right second, wider shoes and daily stretching. Patient states that her right second is wanting to over-ride her right great toe. She states that she is experiencing pain everyday and all day. She also states that pain is effecting her everyday life. Padding and spacing no longer is alleviating her pain. Wide accommodative shoes, active modifications and anti-inflammatories no longer helpful. Given underlying rheumatological disease recommended first metatarsophalangeal arthrodesis, Ti osteotomy of the second metatarsal, plantar plate repair and deep tendon transfer right foot with right second hammertoe correction. I reviewed at length with the patient, the risks, potential complications, benefits, alternatives, expectations, and typical outcomes associated with the surgery. The risks and potential complications were explained in detail, including but not limited to infection, wound dehiscence or soft tissue complications, bleeding and hematoma, chronic edema, neuritis or nerve damage producing numbness or chronic pain, CRPS, failure to relieve pain or worsening pain, thick / painful / unsightly scar, limited motion / stiffness, malposition, delayed union, malunion, or nonunion, fracture, reaction to implants, anesthetic complications, venous thromboembolism, and deformity recurrence. I discussed the notion of no regrets with the patient as it pertains to complications and outcomes. The patient seemed to understand the nature of the proposed care and required convalescence. They asked appropriate questions, answered to their satisfaction. They are aware no guarantees can be made as to a satisfactory outcome and they understand there may be other possible unforeseen complications or outcomes not listed here that will be treated accordingly if they arise. There were no written or implied guarantees given to the patient. They gave informed consent to proceed. Will collaborate with her electromedical service engineer in regards to holding her disease modifying medications. Scheduled November 04, 2023 outpatient first metatarsophalangeal joint fusion, Ti osteotomy second metatarsal, deep tendon transfer and second hammertoe correction all right foot. General, OR table, supine, 90 minutes, TPS, [place] Coding Level of Care Code Acute Code for Chg Fwd Diagnoses Contracture, right foot M24.574 Bunion, right M21.611 Right foot pain M79.671 Hammertoe of second toe of right foot M20.41 Metatarsalgia, right foot M77.41
[2023-11-04] MEDS: HYDROcodone-acetaminophen 10-325 mg Tablet 1 TAB PO (14:10)
--- NOTE | 2023-11-04 14:35 | ANE.PACU2 ---
Inpatient post-anesthesia follow up: Airway intact: Yes Vital signs: Temperature 97.8 F Pulse Rate 93 Respiratory Rate 14 Blood Pressure 144/73 Pulse Oximetry 93 Oxygen Delivery Me thod Room Air Oxygen Flow Rate 1 Fraction of Inspir ed Oxygen Hydration adequate: Yes Nausea and vomiting: No Pain level: 1 Mental status: Baseline
== END 2023-11-04 14:36 | disposition home or self-care (01) ==
PROVIDERS: PCP Physician Assistant; Visit Provider Podiatrist Foot & Ankle Surgery
PROC: (CPT 28740; principal; 2023-11-04 10:30)
PROC: (CPT 28308; 2023-11-04 10:30)
PROC: (CPT 28285; 2023-11-04 10:30)
PROC: (CPT 27691; 2023-11-04 10:30)
DX: M20.41 Other hammer toe(s) (acquired), right foot (principal); M25.871 Other specified joint disorders, right ankle and foot; M21.611 Bunion of right foot; M05.4 Rheumatoid myopathy with rheumatoid arthritis; M24.574 Contracture, right foot; K21.9 Gastro-esophageal reflux disease without esophagitis; E78.5 Hyperlipidemia, unspecified; M06.9 Rheumatoid arthritis, unspecified; I10 Essential (primary) hypertension; M79.7 Fibromyalgia
CPT/HCPCS: 27691; 28285; 28308; 28750; 73620; 76000; C1713; C9290; J0330; J1100; J2250; J2405; J2704; J3010; J3370; J3490; J7030; J7050

== ENCOUNTER → 2023-11-17 11:23 | Outpatient (BNVA) | payer MEDICARE, MEDICAID, SELFPAY | PROVIDERS: PCP Physician Assistant; Visit Provider Podiatrist Foot & Ankle Surgery | DX: Z98.890 Other specified postprocedural states (principal) | CPT/HCPCS: 73630; 99024 ==

== ENCOUNTER → 2023-12-15 11:36 | Outpatient (BNVA) | payer MEDICARE, MEDICAID, SELFPAY | PROVIDERS: PCP Physician Assistant; Visit Provider Podiatrist Foot & Ankle Surgery | DX: Z98.890 Other specified postprocedural states (principal) | CPT/HCPCS: 73630 ==

== ENCOUNTER 2023-12-21 08:41 | Outpatient (CLI) | payer MEDICARE, MEDICAID, SELFPAY ==
--- NOTE | 2023-12-21 08:44 | MM_ITS ---
WS: [id number] BILATERAL SCREENING DIGITAL TOMOSYNTHESIS MAMMOGRAM WITH CAD HISTORY: SCREENING COMPARISON: 03/18/2021, 10/26/2022 and 12/02/2022 Bilateral CC and MLO views with tomosynthesis and synthetic mammography submitted. Computer aided det ection analyzed. Breast composition: The breasts are heterogeneously dense, which may obscure small masses. No suspici ous masses, microcalcifications or architectural distortion. Very dense fibroglandular asymmetry in t he anterior RIGHT breast. Stable pattern since 2020. There are calcifications and masses which are pa rtially obscured. Cysts have been previously described by ultrasound. Benign scattered calcifications in each breast. MM/MM scr BI tomosynthesis [id number] IMPRESSION: BI-RADS: 2 - Benign FOLLOW UP: 1 Year Follow-up
== END 2023-12-21 08:42 | disposition home or self-care (01) ==
LOC: RAD 08:41
PROVIDERS: PCP Physician Assistant; Visit Provider Physician Assistant
DX: Z12.31 Encounter for screening mammogram for malignant neoplasm of breast (principal); R92.323 Mammographic fibroglandular density, bilateral breasts; N64.89 Other specified disorders of breast; R92.1 Mammographic calcification found on diagnostic imaging of breast
CPT/HCPCS: 77063; 77067

== ENCOUNTER 2023-12-27 07:42 | Outpatient (CLI) | payer MEDICARE, MEDICAID, SELFPAY ==
--- NOTE | 2023-12-27 07:50 | CT_ITS ---
WS: [id number] LDCT LUNG CANCER SCREENING HISTORY: NICOTINE DEPENDENCE,CIGARETTES TECHNIQUE: Axial imaging performed from the apices to 1 cm below the costophrenic angles. Coronal and sagittal reformats are submitted with axial MIP series. All CT scans at [facility] use at least one of these dose optimization techniques: automated exposure control; mA and/or kV adjustment per patient size (includes targeted exams where dose is matched to clinical indication); or iterativ e reconstruction. DLP: 87.62 mGy.cm DIvol: Mean CTDIvol: 2.30 (mGy) COMPARISON: 08/11/2022 Diagnostic quality: Satisfactory Lungs: Lungs are hyperinflated. Mild interstitial thickening. Calcified granuloma RIGHT upper lobe. R IGHT perifissural nodules. No pulmonary mass or pneumonia. No endobronchial lesions. Heart: Normal size heart with no pericardial effusion.. Other findings: Mild atherosclerosis and ectasia aorta. Normal size pulmonary artery. Hilar regions a re full and prominent but without IV contrast cannot comment further. Hilar regions are similar to th e prior study. Small paratracheal lymph nodes. Small hiatal hernia. CT/CT lung screening [id number] IMPRESSION: LUNG-RADS: 2-Benign Appearance or Behavior FOLLOW UP: 12 Month: Continue annual screening with LDCT OTHER FINDINGS (S MODIFIER): None.
== END 2023-12-27 07:43 | disposition home or self-care (01) ==
LOC: RAD 07:43
PROVIDERS: PCP Physician Assistant; Visit Provider Physician Assistant
DX: Z12.2 Encounter for screening for malignant neoplasm of respiratory organs (principal); F17.210 Nicotine dependence, cigarettes, uncomplicated; J84.10 Pulmonary fibrosis, unspecified; R91.8 Other nonspecific abnormal finding of lung field; K44.9 Diaphragmatic hernia without obstruction or gangrene
CPT/HCPCS: 71271

== ENCOUNTER → 2024-01-12 13:24 | Outpatient (BNVA) | payer MEDICARE, MEDICAID, SELFPAY | PROVIDERS: PCP Physician Assistant; Visit Provider Podiatrist Foot & Ankle Surgery | DX: Z98.890 Other specified postprocedural states (principal) | CPT/HCPCS: 73630; 99024 ==

== ENCOUNTER 2024-02-27 13:29 | Outpatient (RCR) | payer MEDICARE, MEDICAID, SELFPAY | END 2024-03-27 23:59 | disposition home or self-care (01) | LOC: SST 13:29 | PROVIDERS: Visit Provider Physician Assistant | DX: R13.10 Dysphagia, unspecified (principal) | CPT/HCPCS: 92610 ==

== ENCOUNTER → 2024-02-29 09:36 | Outpatient (BNVA) | payer MEDICARE, MEDICAID, SELFPAY | PROVIDERS: Visit Provider Internal Medicine Rheumatology | DX: Z79.899 Other long term (current) drug therapy (principal); M05.79 Rheumatoid arthritis with rheumatoid factor of multiple sites without organ or systems involvement; Z71.85 Encounter for immunization safety counseling | CPT/HCPCS: 36415; 80076; 82565; 85025; 85651; 86140; 99214 ==

== ENCOUNTER 2024-03-15 11:44 | Outpatient (CLI) | payer MEDICARE, MEDICAID, SELFPAY ==
--- NOTE | 2024-03-15 11:47 | FL_ITS ---
WS: [id number] Modified barium swallow, 03/15/2024 Clinical Data: Other dysphagia Comparison: None. Fluoroscopy time: 2min [id number] # of spot films: 1 Findings: The patient initiated swallowing. There was minimal oral residue but no premature spillage. There is minimal penetration with thin liquids and once with puree but no aspiration. There is minimal residue in the vallecula and piriformis sinuses but it did clear on swallowing. The barium tablet was propel led normally from the oropharynx into the hypopharynx, then the esophagus and finally the stomach. FL/FL barium swallow modifd [id number] Impression: 1. Minimal oral residue with out premature spillage. 2. Minimal penetration but no aspiration. 3. Minimal residue in vallecula and piriformis but they did clear on swallowing .
== END 2024-03-15 11:45 | disposition home or self-care (01) ==
PROVIDERS: PCP Physician Assistant; Visit Provider Physician Assistant
DX: R13.10 Dysphagia, unspecified (principal)
CPT/HCPCS: 74230; 92611

== ENCOUNTER → 2024-04-09 07:30 | Outpatient (BNVA) | payer MEDICARE, MEDICAID, SELFPAY | PROVIDERS: PCP Physician Assistant; Visit Provider Anesthesiology Pain Medicine | DX: M54.2 Cervicalgia; Z98.890 Other specified postprocedural states; Z87.19 Personal history of other diseases of the digestive system; M62.830 Muscle spasm of back; M47.816 Spondylosis without myelopathy or radiculopathy, lumbar region; M54.16 Radiculopathy, lumbar region; M20.41 Other hammer toe(s) (acquired), right foot | CPT/HCPCS: 99214 ==

== ENCOUNTER 2024-04-11 08:05 | Outpatient (CLI) | payer MEDICARE, MEDICAID, SELFPAY ==
--- NOTE | 2024-04-11 08:12 | FL_ITS ---
WS: [id number] FL barium swallow [id number] REASON FOR EXAM: OTHER DYSPHAGIA FLUOROSCOPY TIME: 2min [id number] # OF SPOT FILMS: 0 multiple FINDINGS: Patient was examined in the standing AP and lateral, prone YAN, and supine LPO positions. Swallowing of barium was monitored fluoroscopically and multiple rapid sequence spot films obtained. There there is moderate impingement on the posterior aspect of the cervical esophagus at the level of the superior aspect of the anterior cervical fusion. No aspiration. No extrinsic or intrinsic mass effect on the thoracic esophagus. Small sliding hiatal hernia without gastroesophageal reflux. There was intermittent spasm of the lower esophageal sphincter with delayed emptying of the esophagus and intermittent tertiary contractions. In the supine LPO position these findings were significantly exaggerated and there was retrograde esophageal reflux of barium to the level of the thoracic inlet. FL/FL barium swallow [id number] IMPRESSION: Posterior impingement on the cervical esophagus as above. Esophageal dysmotility as described above.
== END 2024-04-11 08:06 | disposition home or self-care (01) ==
LOC: RAD 08:05
PROVIDERS: PCP Physician Assistant; Visit Provider Specialist
DX: R13.10 Dysphagia, unspecified (principal); K44.9 Diaphragmatic hernia without obstruction or gangrene; K22.4 Dyskinesia of esophagus
CPT/HCPCS: 74220

== ENCOUNTER → 2024-04-17 14:24 | Outpatient (BNVA) | payer MEDICARE, MEDICAID, SELFPAY | PROVIDERS: PCP Physician Assistant; Visit Provider Anesthesiology Pain Medicine | DX: M54.16 Radiculopathy, lumbar region (principal); M54.9 Dorsalgia, unspecified | CPT/HCPCS: 64483; 77002; J1100; J3490 ==

== ENCOUNTER → 2024-04-30 15:17 | Outpatient (BNVA) | payer MEDICARE, MEDICAID, SELFPAY | PROVIDERS: PCP Physician Assistant; Visit Provider Nurse Practitioner Family | DX: G89.29 Other chronic pain (principal); M54.41 Lumbago with sciatica, right side; M62.830 Muscle spasm of back; Z87.891 Personal history of nicotine dependence | CPT/HCPCS: 99213 ==

== ENCOUNTER 2024-05-07 10:01 | Outpatient (CLI) | payer MEDICARE, MEDICAID, SELFPAY ==
--- NOTE | 2024-05-07 10:49 | FL_ITS ---
WS: [id number] FL barium swallow modifd [id number] REASON FOR EXAM: Other dysphagia FLUOROSCOPY TIME: 2min [id number] # OF SPOT FILMS: 0 FINDINGS: None examination was supervised by the speech therapy department. Patient was examined in the sitting upright lateral projection. The swallowing of barium of varying consistencies was monitored fluoroscopically and video recorded. There was intermittent penetration of contrast into the laryngeal ventricle with single episode of minimal aspiration. Significant tertiary contractions were identified in the distal esophagus. FL/FL barium swallow modifd [id number] IMPRESSION: A detailed report of the swallowing will be rendered by the speech therapy depa rtment. Esophageal dysmotility as above. See report of previous barium swallow 5.
== END 2024-05-07 10:02 | disposition home or self-care (01) ==
PROVIDERS: PCP Physician Assistant; Visit Provider Specialist
DX: R13.19 Other dysphagia (principal); R93.89 Abnormal findings on diagnostic imaging of other specified body structures
CPT/HCPCS: 74230; 92611

== ENCOUNTER → 2024-05-22 10:21 | Outpatient (BNVA) | payer OTHER, SELFPAY | PROVIDERS: PCP Physician Assistant; Visit Provider Psychiatry & Neurology Psychiatry | DX: Z79.899 Other long term (current) drug therapy (principal) | CPT/HCPCS: 80061; 83036 ==

== ENCOUNTER 2024-05-31 08:12 | Outpatient (CLI) | payer MEDICARE, MEDICAID, SELFPAY ==
[2024-05-24 11:26] VITALS: BP 125/80; BMI 37.1
--- NOTE | 2024-05-31 08:15 | CT_ITS ---
WS: [id number] CT NECK WITH CONTRAST HISTORY: DYSPHAGIA, history of throat cancer. Palpable nodule RIGHT lateral neck. TECHNIQUE: Contiguous 2 mm axial images are performed through the neck with intravenous contrast. Sagittal and coronal reformats are also submitted. All CT scans at [facility] use at least one of these dose optimization techniques: automated exposure control; mA and/or kV adjustment per patient size (includes targeted exams where dose is matched to clinical indication); or iterative reconstruction. CONTRAST: CONTRAST: Omnipaque 350; 100 mL IV. DLP: 217.13 mGy.cm COMPARISON: 10/27/2020 Marker is placed on the RIGHT neck at the site of the palpable abnormality. Just deep and superior to the marker are 3 very small lymph nodes measuring up to 3.6 mm in the fat surrounding the RIGHT parotid gland. These lymph nodes were not present on the prior study and do appear mildly hyperemic. These do not appear pathologic. No additional enlarging or abnormal lymph nodes. Submental lymph node is similar to the study of 10/27/2020. Tongue base, hypopharynx, glottis and subglottic regions are normal. No evidence for recurrent carcinoma. Torus tubarius and fossa of Rosenmuller and parapharyngeal fat are normal. Thyroid gland and salivary glands are normally enhancing with no masses. Anterior cervical fusion C5-C7. Interbody spacers at C5-6 and C6-7. Visualized portions of the skull base demonstrate no abnormalities. Orbits and globes are within normal limits. No soft tissue masses. No paranasal sinus disease. Abnormal RIGHT mastoid air cells. RIGHT mastoid air cells are mildly coalesced with fluid. New finding since 10/27/2020. Lung apices are clear. CT/CT neck w con* [id number] IMPRESSION: 1. No evidence for recurrent throat cancer. 2. Just deep and superior to the palpable marker placed along the RIGHT cervic al chain are 3 very small lymph nodes closely associated with the tail of the p arotid gland. The largest measures 3.6 mm. Lymph nodes do not appear pathologic . 3. No pathological lymphadenopathy identified. 4. RIGHT mastoiditis. New fluid filling the mastoid air cells since 2020.
[2024-05-31] MEDS: iohexol 350 mg/mL 500 mL Btl (per mL) IV (08:35)
== END 2024-05-31 08:13 | disposition home or self-care (01) ==
LOC: RAD 08:13
PROVIDERS: PCP Physician Assistant; Visit Provider Specialist
DX: R13.19 Other dysphagia (principal); R59.0 Localized enlarged lymph nodes; H70.91 Unspecified mastoiditis, right ear; Z98.1 Arthrodesis status
CPT/HCPCS: 70491

== ENCOUNTER → 2024-07-04 09:23 | Outpatient (BNVA) | payer MEDICARE, MEDICAID, SELFPAY ==
[2024-05-24 11:26] VITALS: BP 125/80; BMI 37.1
== END ==
PROVIDERS: Visit Provider Internal Medicine Rheumatology
DX: M05.79 Rheumatoid arthritis with rheumatoid factor of multiple sites without organ or systems involvement (principal); Z79.899 Other long term (current) drug therapy; Z71.85 Encounter for immunization safety counseling
CPT/HCPCS: 36415; 80076; 82565; 85025; 85651; 86140; 99214

== ENCOUNTER → 2024-08-01 12:42 | Outpatient (BNVA) | payer MEDICARE, SELFPAY ==
[2024-05-24 11:26] VITALS: BP 125/80; BMI 37.1
== END ==
PROVIDERS: PCP Physician Assistant; Visit Provider Nurse Practitioner Family
DX: G89.29 Other chronic pain (principal); M54.41 Lumbago with sciatica, right side; M62.830 Muscle spasm of back
CPT/HCPCS: 99214

== ENCOUNTER → 2024-08-15 10:19 | Outpatient (BNVA) | payer MEDICARE, SELFPAY ==
[2024-05-24 11:26] VITALS: BP 125/80; BMI 37.1
== END ==
PROVIDERS: PCP Physician Assistant; Visit Provider Anesthesiology Pain Medicine
DX: M47.816 Spondylosis without myelopathy or radiculopathy, lumbar region (principal); G89.29 Other chronic pain; M54.41 Lumbago with sciatica, right side
CPT/HCPCS: 64493; 64494; 64495; J3490; J9999

== ENCOUNTER → 2024-08-28 08:44 | Outpatient (BNVA) | payer MEDICAID, SELFPAY ==
[2024-05-24 11:26] VITALS: BP 125/80; BMI 37.1
== END ==
PROVIDERS: PCP Physician Assistant; Visit Provider Nurse Practitioner Family
DX: G89.29 Other chronic pain (principal); M54.41 Lumbago with sciatica, right side; M62.830 Muscle spasm of back
CPT/HCPCS: 99214

== ENCOUNTER → 2024-09-05 09:28 | Outpatient (BNVA) | payer MEDICAID, SELFPAY ==
[2024-05-24 11:26] VITALS: BP 125/80; BMI 37.1
== END ==
PROVIDERS: PCP Physician Assistant; Visit Provider Anesthesiology Pain Medicine
DX: M47.816 Spondylosis without myelopathy or radiculopathy, lumbar region (principal); G89.29 Other chronic pain; M54.41 Lumbago with sciatica, right side
CPT/HCPCS: 64493; 64494; 64495; J3490; J9999

== ENCOUNTER → 2024-09-11 08:43 | Outpatient (BNVA) | payer MEDICAID, SELFPAY ==
[2024-05-24 11:26] VITALS: BP 125/80; BMI 37.1
== END ==
PROVIDERS: PCP Physician Assistant; Visit Provider Anesthesiology Pain Medicine
DX: M17.12 Unilateral primary osteoarthritis, left knee (principal); G89.29 Other chronic pain; M54.41 Lumbago with sciatica, right side; M62.830 Muscle spasm of back
CPT/HCPCS: 73562; 99214

== ENCOUNTER → 2024-09-17 09:11 | Outpatient (BNVA) | payer MEDICAID, SELFPAY ==
[2024-05-24 11:26] VITALS: BP 125/80; BMI 37.1
== END ==
PROVIDERS: PCP Physician Assistant; Visit Provider Anesthesiology Pain Medicine
DX: M17.12 Unilateral primary osteoarthritis, left knee (principal)
CPT/HCPCS: 20610; 99214; J1010; J3490

== ENCOUNTER → 2024-09-25 14:03 | Outpatient (BNVA) | payer MEDICAID, SELFPAY ==
[2024-05-24 11:26] VITALS: BP 125/80; BMI 37.1
== END ==
PROVIDERS: PCP Physician Assistant; Visit Provider Anesthesiology Pain Medicine
DX: M47.816 Spondylosis without myelopathy or radiculopathy, lumbar region (principal); M54.9 Dorsalgia, unspecified; G89.29 Other chronic pain; M54.41 Lumbago with sciatica, right side
CPT/HCPCS: 64635; 64636; J1100; J9999

== ENCOUNTER → 2024-10-09 14:01 | Outpatient (BNVA) | payer OTHER, MEDICAID, SELFPAY ==
[2024-05-24 11:26] VITALS: BP 125/80; BMI 37.1
== END ==
PROVIDERS: PCP Physician Assistant; Visit Provider Anesthesiology Pain Medicine
DX: M47.816 Spondylosis without myelopathy or radiculopathy, lumbar region (principal); M54.9 Dorsalgia, unspecified
CPT/HCPCS: 64635; 64636; J1100; J9999

== ENCOUNTER → 2024-10-23 09:34 | Outpatient (BNVA) | payer MEDICARE, MEDICAID, SELFPAY ==
[2024-05-24 11:26] VITALS: BP 125/80; BMI 37.1
== END ==
PROVIDERS: PCP Physician Assistant; Visit Provider Anesthesiology Pain Medicine
DX: M54.9 Dorsalgia, unspecified (principal)
CPT/HCPCS: 99214

== ENCOUNTER → 2025-03-06 13:30 | Outpatient (BNVA) | payer OTHER, MEDICAID, SELFPAY ==
[2024-05-24 11:26] VITALS: BP 125/80; BMI 37.1
== END ==
PROVIDERS: PCP Physician Assistant; Visit Provider Internal Medicine Rheumatology
DX: M05.79 Rheumatoid arthritis with rheumatoid factor of multiple sites without organ or systems involvement (principal); Z79.899 Other long term (current) drug therapy; Z71.85 Encounter for immunization safety counseling
CPT/HCPCS: 99214

== ENCOUNTER 2025-03-07 10:08 | Outpatient (CLI) | payer OTHER, MEDICAID, SELFPAY ==
[2024-05-24 11:26] VITALS: BP 125/80; BMI 37.1
[2025-03-07 10:36] LABS: Hematocrit 36.3 % (36-47); Hemoglobin 11.90 g/dL (11.27-16.99); Mean Corpuscular HGB Conc 32.8 g/dL (30-55); Mean Corpuscular Hemoglobin 30.3 pg (27-33); Mean Corpuscular Volume 92.4 fl (85-98); Nucleated Red Blood Cells % 0 %; Platelet Count 216 10^3/cmm (157-399); Red Blood Count 3.93 10^6/uL (3.85-5.65); White Blood Count 5.72 10^3/uL (3.29-11.43)
[2025-03-07 10:57] LABS: Alanine Aminotransferase 20 U/L (0-33); Albumin Level 4.1 g/dL (3.5-5.2); Alkaline Phosphatase 128 U/L (35-105); Aspartate Amino Transferase 18 U/L (0-32); Globulin 3.2 g/dL (1.3-4.6); Total Protein 7.3 g/dL (6.6-8.7)
== END 2025-03-07 10:09 | disposition home or self-care (01) ==
LOC: LAB 10:08
PROVIDERS: PCP Physician Assistant; Visit Provider Internal Medicine Rheumatology
DX: Z79.899 Other long term (current) drug therapy (principal)
CPT/HCPCS: 36415; 80076; 82306; 82565; 85025; 85651; 86140